=== PATIENT | female | born 1955 | race Caucasian/White ===

== ENCOUNTER → 2017-02-04 | Outpatient (CLI) | payer MEDICAID | LOC: RAD 09:27 | PROVIDERS: ATTEND Family Medicine | DX: M79.605 Pain in left leg (principal) | CPT/HCPCS: 78306; A9503; Q9969 ==

== ENCOUNTER 2017-11-28 07:31 | Day surgery (SDC) | payer MEDICARE, MEDICAID ==
[2017-11-28 09:31] LABS: HEMATOCRIT 31.8 % (36.0-47.0); HEMOGLOBIN 10.7 g/dL (12.0-15.5); MEAN CORPUSCULAR HEMOGLOBIN 26.7 pg (27.0-33.4); MEAN CORPUSCULAR HGB CONC 33.8 g/dL (32.0-36.0); MEAN CORPUSCULAR VOLUME 79 fl (80-97); PLATELET COUNT 553 10^3/uL (150-450); RED BLOOD COUNT 4.02 10^6/uL (3.72-5.28); WHITE BLOOD COUNT 4.1 10^3/uL (4.0-10.5)
[2017-11-28 09:39] LABS: PROTHROMBIN TIME 12.8 SEC (11.4-15.4)
[2017-11-28 09:40] LABS: PARTIAL THROMBOPLASTIN TIME 36.7 SEC (23.5-35.8)
[2017-11-28 09:47] LABS: BLOOD UREA NITROGEN 9 mg/dL (7-20)
[2017-11-28 12:58] VITALS: BP 119/67
[2017-11-28 13:00] LABS: FLUID APPEARANCE CLOUDY; FLUID COLOR AMBER; FLUID SOURCE ASCITES; FLUID TYPE PERITONEAL; FLUID VISCOSITY LIQUID
--- NOTE | 2017-11-28 14:15 | RADIOLOGY REPORT (SQ) ---
EXAM DESCRIPTION: U/S ABD PARACENTESIS COMPLETED DATE/TIME: 11/28/2017 11:55 am REASON FOR STUDY: ASCITES COMPARISON CT abdomen pelvis 12/19/2007 LIMITATIONS: None. PROCEDURE: After obtaining informed consent, the patient was brought to the ultrasound suite. The p rocedure was performed with the patient on a gurney. Ultrasound was used to identify a prominent poc ket of ascites in the left lower quadrant. An appropriate access site was selected. The patient was prepped and draped in usual sterile fashion. The access site was anesthetized with 7 mL of 1% lido sunil. A [id number] needle was advanced into the fluid. After aspiration of fluid the needle, the catheter was advanced off the needle into the fluid. A total of 150 mL of clear patt colored fl uid was removed. The patient tolerated the procedure well left the department in satisfactory conditi on. Fluid was sent for testing as per Dr. Nam IMPRESSION: Successful ultrasound-guided diagnostic and therapeutic paracentesis COMMENT: Patient medication list reviewed: Yes- Quality ID# 130:Eligible professional attests to doc umenting in the medical record they obtained, updated, or reviewed the patient's current medications. Quality ID #76: The patient was prepped and draped using maximum sterile barrier technique including cap, mask, sterile gown, sterile gloves, a large sterile sheet, hand hygiene, and 2% Chlorhexidine fo r cutaneous antisepsis. When ultrasound is used, sterile ultrasound techniques are followed requiring sterile gel and sterile probes. Quality ID #145: Final reports for procedures using fluoroscopy that document radiation exposure dorian maribel, or exposure time and number of fluorographic images (if radiation exposure indices are not avail able) TECHNICAL DOCUMENTATION: JOB ID: [id number] [employer]- All Rights Reserved
[2017-11-30 07:07] LABS: ALBUMIN BODY FLUID 2.7 g/dL (.); TOTAL PROTEIN BODY FLUID 5.8 g/dL (.)
== END 2017-11-28 12:45 | disposition home or self-care (01) ==
LOC: RAD 07:31
PROVIDERS: ATTEND Internal Medicine
PROC: 0W9G3ZZ Drainage of Peritoneal Cavity, Percutaneous Approach (ICD-10-PCS; principal; 2017-11-28)
DX: R59.1 Generalized enlarged lymph nodes (principal); C80.1 Malignant (primary) neoplasm, unspecified; R18.0 Malignant ascites; R01.1 Cardiac murmur, unspecified; M19.90 Unspecified osteoarthritis, unspecified site; J44.9 Chronic obstructive pulmonary disease, unspecified; I11.9 Hypertensive heart disease without heart failure; I73.00 Raynaud's syndrome without gangrene; Z88.5 Allergy status to narcotic agent; Z88.6 Allergy status to analgesic agent; Z88.1 Allergy status to other antibiotic agents; Z88.7 Allergy status to serum and vaccine; Z79.82 Long term (current) use of aspirin; Z79.51 Long term (current) use of inhaled steroids; F17.210 Nicotine dependence, cigarettes, uncomplicated
CPT/HCPCS: 36415; 49083; 82042; 82565; 84157; 84520; 85027; 85610; 85730; 87070; 87075; 87205; 88184; 88185; 88305; 88341; 88342; 89050

== ENCOUNTER → 2017-12-04 | Outpatient (CLI) | payer MEDICARE, MEDICAID ==
--- NOTE | 2017-12-05 09:23 | RADIOLOGY REPORT (SQ) ---
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 RADIONUCLIDE AND DOSE: 10.9 mCi F18 FDG The route of agent administration: Intravenous FASTING BLOOD SUGAR: 83 mg/dl CONTRAST TYPE AND DOSE: No CT contrast given. TECHNIQUE: Blood glucose level was verified. Above dose of FDG was injected intravenously. 2-D seg mented attenuation correction images were obtained from the base of the skull to the midthighs. Nonc ontrast CT images were obtained for attenuation correction and fusion with emission images. CT image s were performed without oral or intravenous contrast and are not sensitive for parenchymal lesions. A series of overlapping emission PET images were obtained. Images reviewed and manipulated at [facility] work station by the radiologist. Images stored on PACS. LIMITATIONS: None. FINDINGS: HEAD AND NECK: No areas of abnormal metabolic activity in the soft tissues of the head and neck. CHEST: Hypermetabolic axillary nodes, largest on the right 1.5 x 2.6 cm, 8.8 SUV. Station 2R: 1.5 cm. 7.1 mean SUV. Station 2 L: 1.0 cm. 6.9 SUV. Station 6: 3 closely opposed subcentimeter nodes 5.3 SUV. Internal mammary. Bilateral subcentimeter nodes 4.0 SUV. Multiple anterior cardiophrenic nodes measuring up to about 2 cm and 6.4 SUV. Station 8: 1.5 cm, 4.6 SUV. ABDOMEN AND PELVIS: Extensive celiac axis and retroperitoneal adenopathy 8.0 SUV range with the large st conglomerate about 5 cm in diameter just inferior to the right renal vein. Hypermetabolic partially calcified central mesenteric nodes 6.3 SUV. Hypermetabolic heterogeneous partially calcified pelvic mass measuring about 5.8 SUV. Margins are ir regular but roughly 10.0 x 8.6 cm in transverse by AP diameter. 1.5 cm hypermetabolic right iliac chain nodes measuring about 5.8 SUV. PROXIMAL LOWER EXTREMITIES: No areas of abnormal metabolic activity in the soft tissues of the lower extremities. BONES: No abnormal metabolic activity in the visualized skeleton. ADDITIONAL CT FINDINGS: Small amount of ascites. OTHER: No other significant findings. IMPRESSION: 1. Extensive adenopathy above and below the diaphragm. 2. Hypermetabolic partially calcified pelvic mass possible gynecologic primary. TECHNICAL DOCUMENTATION: JOB ID: [id number] [employer]- All Rights Reserved
== END ==
LOC: RAD 15:02
PROVIDERS: ATTEND Internal Medicine
DX: C81.73 Other Hodgkin lymphoma, intra-abdominal lymph nodes (principal)
CPT/HCPCS: 78815; A9552

== ENCOUNTER 2017-12-12 09:14 | Day surgery (SDC) | payer MEDICARE, MEDICAID ==
[~2017-12-12 09:14] MED LIST: ACETAMINOPHEN 325 MG TABLET PO PRN; CEFAZOLIN 1 GM/D5W RTU 1 GM/50 ML RTUPB IV PRN; CLINDAMYCIN 600 MG/D5W RTU 600 MG/50 ML RTUPB IV PRN; LIDOCAINE 1%/EPINEPHRINE INJ 20 ML VIAL ONE
[2017-12-12 10:10] LABS: HEMATOCRIT 32.7 % (36.0-47.0); HEMOGLOBIN 10.9 g/dL (12.0-15.5); MEAN CORPUSCULAR HEMOGLOBIN 25.9 pg (27.0-33.4); MEAN CORPUSCULAR HGB CONC 33.3 g/dL (32.0-36.0); MEAN CORPUSCULAR VOLUME 78 fl (80-97); PLATELET COUNT 554 10^3/uL (150-450); RED BLOOD COUNT 4.21 10^6/uL (3.72-5.28); RED CELL DISTRIBUTION WIDTH 14.1 % (11.5-14.0); WHITE BLOOD COUNT 4.3 10^3/uL (4.0-10.5)
[2017-12-12] MEDS ORDERED: MIDAZOLAM 2 MG/2 ML INJ ONE (10:50)
[2017-12-12] MEDS ORDERED: KETAMINE HCL INJ 500 MG/10 ML VIAL ONE (10:50)
[2017-12-12] MEDS ORDERED: ACETAMINOPHEN 100 ML IV ONE (10:50)
[2017-12-12] MEDS ORDERED: PROPOFOL INJ 200 MG/20 ML VIAL IV ONE ×2 (10:50→11:39)
[2017-12-12] MEDS ORDERED: FENTANYL CITRATE INJ/PF 100 MCG/2 ML AMPUL ONE (10:50)
[2017-12-12] MEDS ORDERED: FENTANYL CITRATE INJ/PF 100 MCG/2 ML AMPUL IV PRN ×3 (11:31)
[2017-12-12] MEDS ORDERED: ONDANSETRON HCL INJ/PF 4 MG/2 ML SDV IV PRN (11:31)
[2017-12-12] MEDS ORDERED: MEPERIDINE HCL/PF INJ 25 MG/1 ML DISP.SYRIN IV PRN (11:31)
[2017-12-12] MEDS ORDERED: DIPHENHYDRAMINE HCL 50 MG/ML VIAL IV PRN (11:31)
[2017-12-12] MEDS ORDERED: PROMETHAZINE HCL INJ 25 MG/1 ML VIAL IV PRN ×2 (11:31)
[2017-12-12] MEDS ORDERED: LIDOCAINE 2% INJ-PF (20 MG/ML) 2 ML AMPUL ONE (11:54)
[2017-12-12] MEDS ORDERED: DEXAMETHASONE SOD PHOSPHATE INJ 4 MG/1 ML VIAL ONE (11:54)
[2017-12-12] MEDS ORDERED: ONDANSETRON HCL INJ/PF 4 MG/2 ML SDV ONE (11:54)
--- NOTE | 2017-12-12 12:24 | Operative Report ---
Operative Report DATE OF SURGERY: 12/12/17 PREOPERATIVE DIAGNOSIS: Stage IV ovarian carcinoma POSTOPERATIVE DIAGNOSIS: Same OPERATION: 1. Focused ultrasound of the right neck. 2. Insertion of right subclavian single lumen Fcpqtw-[id number]-Uern catheter. 3. Irritation of intraoperative fluoroscopy SURGEON: ITZ RO ANESTHESIA: LMAC TISSUE REMOVED OR ALTERED: None COMPLICATIONS: None ESTIMATED BLOOD LOSS: Scant INTRAOPERATIVE FINDINGS: Below PROCEDURE: The patient was seen in the preop holding area the right neck was marked. She was then taken to the main operating room where LMAC anesthesia was induced. The right neck chest wall were exposed, prepped and draped in sterile fashion and instrumentation set up for open port placement Surgical plan and surgical timeout conducted. Right neck scanned with a variable frequency linear transducer. Right internal jugular vein was felt suitable for cannulation. Skin was anesthetized 1% lidocaine plain, micro needle and wire threaded into the right internal jugular vein, confirmed to be in good position with intraoperative fluoroscopy Suitable site for placement of port was chosen in the right subclavian position. Skin was anesthetized with plain lidocaine incision was made vertical and parallel to the clavicle. Subcutaneous pocket was developed with blunt and electrocautery dissection. Catheter was trimmed to the appropriate length tunneled between the 2 incisions, attached to the port and secured with the plastic ring. The port was tucked into the subcutaneous pocket. Micro needle over to a conventional 0.035 wire using the introducer sheath. The 9 Frisian sheath and dilator was then threaded over the conventional guidewire, guidewire dilator removed, and catheter threaded into the strip away sheath leaving the catheter in good position. By fluoroscopic analysis, the tip of the catheter is in superior vena cava, no kinking of the catheter. Elton needle was used to aspirate blood and flush the port with dilute heparinized saline. Wounds closed with 3-0 Vicryl benzoin Steri-Strips. Patient taught procedure well. SHe was taken to the recovery room in stable condition.
[2017-12-12 14:02] VITALS: BP 116/65
--- NOTE | 2017-12-12 16:23 | RADIOLOGY REPORT (SQ) ---
EXAM DESCRIPTION: FLUORO/CV PLACEMENT COMPLETED DATE/TIME: 12/12/2017 3:51 pm REASON FOR STUDY: PORTACATH PLCMT RT SIDE ASST WITH FLUORO IN OR C56.2 MALIGNANT NEOPLASM OF LEFT O VARY R59.1 GENERALIZED ENLARGED LYMPH NODES COMPARISON: PET-CT 12/04/2017 FLUOROSCOPY TIME: 0.1 minutes 3 digital C-arm images saved to PACS. TECHNIQUE: Intra-operative images acquired during surgical procedure to evaluate progress. NUMBER OF IMAGES: 3 digital C-arm images saved to pac's LIMITATIONS: None. FINDINGS: Intra procedural imaging and fluoro during right-sided permanent central line placement wi th the tip in the superior vena cava. Please see the operative report for further details IMPRESSION: Intra procedural imaging and fluoro COMMENT: Quality ID 145: Final reports for procedures using fluoroscopy that document radiation exp osure indices, or exposure time and number of fluorographic images (if radiation exposure indices are not available) Please consult full operative report of the attending physician for description of the procedure. TECHNICAL DOCUMENTATION: JOB ID: [id number] [employer]- All Rights Reserved
--- NOTE | 2017-12-14 11:58 | DISCHARGE SUMMARY E ---
Discharge Summary NAME: SHAWANDA ZHANG : 1955 AGE: 62Y ADMITTED: 12/12/2017 DISCHARGED: 12/12/2017 DISCHARGE SUMMARY: The patient is a 62-year-old white female with a recent diagnosis of stage 4 ovarian carcinoma. She was brought thru [facility] for Infusaport catheter placement. Procedure was performed and dictated separately. There were no post-procedure complications. She tolerated the procedure well and was discharged home to the care of her family. FINAL DIAGNOSIS: Ovarian carcinoma stage 4 status post Infusaport catheter placement by Dr. Cabral. DISPOSITION: The patient will be discharged home in the care of her family. Follow up with Dr. Cabral at [facility] in 1-2 weeks, take Toradol p.r.n. pain. DICTATING PHYSICIAN: ITZ CABRAL M.D. [id number] PHY#: [id number] ID: [id number] JOB#: [id number] ACCT: [id number] cc:ITZ CABRAL M.D. > MTDD
== END 2017-12-12 14:00 | disposition home or self-care (01) ==
LOC: OROUT 09:14
PROVIDERS: ATTEND Surgery
PROC: 05H533Z Insertion of Infusion Device into Right Subclavian Vein, Percutaneous Approach (ICD-10-PCS; principal; 2017-12-12 11:30)
DX: C56.2 Malignant neoplasm of left ovary (principal); R59.1 Generalized enlarged lymph nodes; J44.9 Chronic obstructive pulmonary disease, unspecified; I10 Essential (primary) hypertension; F41.9 Anxiety disorder, unspecified; F17.210 Nicotine dependence, cigarettes, uncomplicated; Z88.5 Allergy status to narcotic agent; Z88.1 Allergy status to other antibiotic agents; Z79.899 Other long term (current) drug therapy; Z79.51 Long term (current) use of inhaled steroids; Z79.82 Long term (current) use of aspirin; R01.1 Cardiac murmur, unspecified
CPT/HCPCS: 36415; 85027; 77001; 36561; C1752; C1788; J2250; J1100; J3010; J3490 ×2; J2405; J2704; J1642; J0131

== ENCOUNTER 2018-01-10 09:48 | Outpatient (CLI) | payer MEDICARE, MEDICAID ==
[~2018-01-10 09:48] MED LIST changes: -ACETAMINOPHEN 325 MG TABLET PO PRN; -CEFAZOLIN 1 GM/D5W RTU 1 GM/50 ML RTUPB IV PRN; -CLINDAMYCIN 600 MG/D5W RTU 600 MG/50 ML RTUPB IV PRN; +FERRIC CARBOXYMALTOSE 750 MG in NORMAL SALINE 250 ML IV PRN; -LIDOCAINE 1%/EPINEPHRINE INJ 20 ML VIAL ONE; +NORMAL SALINE 250 ML IV PRN
[2018-01-10] MEDS ORDERED: DEXAMETHASONE SOD PHOSPHATE 10 MG in NORMAL SALINE 50 ML IV PRN (10:14)
[2018-01-10 10:34] VITALS: BP 117/69
== END 2018-01-10 11:37 | disposition home or self-care (01) ==
LOC: II 09:48 → 5TH 09:53 → II 11:37
PROVIDERS: ATTEND Internal Medicine
PROC: 3E043GC Introduction of Other Therapeutic Substance into Central Vein, Percutaneous Approach (ICD-10-PCS; principal; 2018-01-10)
PROC: 3E0433Z Introduction of Anti-inflammatory into Central Vein, Percutaneous Approach (ICD-10-PCS; 2018-01-10)
DX: D50.8 Other iron deficiency anemias (principal); K90.9 Intestinal malabsorption, unspecified; L27.0 Generalized skin eruption due to drugs and medicaments taken internally
CPT/HCPCS: 96365; 96374; J7050; J1100; J1439; 96375

== ENCOUNTER 2018-01-14 17:03 | Emergency (ER) | payer MEDICARE, MEDICAID ==
--- NOTE | 2018-01-14 17:22 | ER Document Report ---
ED General - General Chief Complaint: Irregular Pulse Stated Complaint: SHOULDER PAIN Time Seen by Provider: 01/14/18 17:16 Notes: 62-year-old lady with breast and ovarian cancer on chemotherapy as well as long- term COPD presents with palpitations which started about an hour and a half ago , heart rate was 180 for paramedics. She has no shortness of breath chest pain nausea vomiting but did feel slightly dizzy. This is happened once before. She was found to be in SVT was given a single dose of adenosine which converted her in a sinus tachycardia. TRAVEL OUTSIDE OF THE [place] IN LAST 30 DAYS: No - Related Data Allergies/Adverse Reactions: cephalexin monohydrate [From Keflex] Allergy (Mild, Verified 12/09/17 15:03) rash Tetanus Vaccines and Toxoid [Tetanus] Allergy (Mild, Verified 12/09/17 15:03) ARM SWELLING duloxetine HCl [From Cymbalta] Allergy (Verified 12/09/17 15:03) Vomiting oxycodone HCl [From Percocet] Allergy (Verified 12/09/17 15:03) Vomiting tramadol HCl [From Ultracet] Allergy (Verified 12/09/17 15:03) Vomiting azithromycin [From Zithromax] Adverse Reaction (Intermediate, Verified 12/09/17 15:03) N/V Past Medical History - Social History Smoking Status: Current Every Day Smoker Chew tobacco use (# tins/day): No Smoking Education Provided: Yes - The patient ED visit today was directly related to their abuse of tobacco. Drug Abuse: None Family History: Reviewed & Not Pertinent Patient has suicidal ideation: No Patient has homicidal ideation: No - Past Medical History Cardiac Medical History: Reports: Hx Hypertension Denies: Hx Coronary Artery Disease, Hx Heart Attack Pulmonary Medical History: Reports: Hx Bronchitis, Hx COPD Denies: Hx Asthma, Hx Pneumonia Neurological Medical History: Denies: Hx Cerebrovascular Accident, Hx Seizures Renal/ Medical History: Denies: Hx Peritoneal Dialysis Musculoskeltal Medical History: Reports Hx Arthritis - GENERALIZED Past Surgical History: Reports: Hx Cholecystectomy - Immunizations Hx Diphtheria, Pertussis, Tetanus Vaccination: No Review of Systems - Review of Systems Notes: REVIEW OF SYSTEMS GEN: Denies fever, chills, weight loss ENT: Denies sore throat, nasal discharge, ear pain EYES: Denies blurry vision, eye pain, discharge CV: D no chest pain or shortness of breath positive palpitations RESP: Denies cough, shortness of breath, wheezing GI: Denies abdominal pain, nausea, vomiting, diarrhea MSK: Denies joint pain/swelling, edema, SKIN: Denies rash, skin lesions LYMPH: Denies swollen glands/lymph nodes NEURO: Denies headache, focal weakness or numbness, dizziness PSYCH: Denies depression, suicidal or homicidal ideation PHYSICAL EXAMINATION General: No acute distress, well-nourished Head: Atraumatic, normocephalic ENT: Mouth normal, oropharynx moist, no exudates or tonsillar enlargement Eyes: Conjunctiva normal, pupils equal, lids normal Neck: No JVD, supple, no guarding CVS: Tachycardic and regular rhythm, no murmurs Resp: No resp distress, equal and normal breath sounds bilaterally GI: Nondistended, soft, no tenderness to palpation, no rebound or guarding Ext: No deformities, no edema, normal range of motion in upper and lower ext Back: No CVA or midline TTP Skin: No rash, warm Lymphatic: No lymphadeopathy noted Neuro: Awake, alert. Face symmetric. GCS 15. Physical Exam - Vital signs Vitals: Resp Pulse Ox 33 H 99 01/14/18 17:06 01/14/18 17:06 Course - Re-evaluation Re-evalutation: 01/14/18 18:44 Patient presents with resolved supraventricular tachycardia. She has cancer. She is on chemotherapy. Multiple electrolyte abnormality, hydration, pulmonary issues could be causing this. She is clinically stable but her heart rate is elevated at 120 so we will give her IV fluids. Heart rate decreased to 100 with IV fluid. Patient felt totally normal. X-ray shows some right pleural effusion with airspace disease. This could be pneumonia but given her cancer I will rule out PE with a CT scan. I did an ultrasound and she has a negligibly tiny pericardial effusion and good cardiac squeeze. 01/14/18 19:38 Patient remained stable. PE was ruled out with CT scan. Heart rate decreased to the 90s and patient feels well and wants to go home. Attempted to call Dr. Quinn and left a message. Spoke with Dr. higgins who recommended starting Cardizem 30 mg every 8 hours and discharging her home to follow-up in his clinic. She is amenable to this. I have discussed with the patient there likely diagnosis, aftercare plan, follow-up plans and my usual and customary return precautions. They verbalized understanding of this. - Vital Signs Vital signs: Temp Pulse Resp BP Pulse Ox 29 H 136/82 H 97 01/14/18 18:01 01/14/18 18:01 01/14/18 18:01 - Laboratory Result Diagrams: 01/14/18 17:09 01/14/18 17:45 Laboratory results interpreted by me: 01/14/18 01/14/18 17:09 17:45 Hgb 10.7 L Hct 32.6 L MCH 26.3 L RDW 15.4 H Plt Count 702 H Seg Neutrophils % 86.9 H Lymphocytes % 6.9 L Sodium 131.3 L Creatinine 0.46 L Glucose 111 H - Diagnostic Test Radiology reviewed: Image reviewed, Reports reviewed - EKG Interpretation by Me EKG shows normal: Sinus rhythm Rate: Normal, Tachycardia Rhythm: NSR When compared to previous EKG there are: No significant change - No preexcitation or other arrhythmia, sinus tachycardia Procedures - Ultrasound/Bedside Ultrasound/Bedside Time completed: 18:45 Ultrasound: Other - Normal cardiac function. Tiny pericardial effusion. Critical Care Note - Critical Care Note Total time excluding time spent on procedures (mins): 32 Comments: The above patient is critically ill. Not including procedures, but including direct re-evaluations, speaking with patient and/or consultants, interpreting results, and documenting, I spent the total amount of minute listed listed above on critical care time Discharge - Discharge Clinical Impression: Supraventricular tachycardia Condition: Good Disposition: HOME, SELF-CARE Instructions: Paroxysmal Supraventricular Tachycardia ([facility]) Additional Instructions: I would like you to follow-up with her cancer doctor but also a funeral pre need consultant. I have included information below. If you develop chest pain or palpitations please return to the emergency room immediately. Please avoid caffeine and keep well-hydrated at home. Prescriptions: Diltiazem HCl [Cardizem 30 mg Tablet] 1 tab PO Q6 #60 tab Referrals: KELSEY TAVERA MD [Primary Care Provider] - Follow up as needed VANE WALTERS MD [ACTIVE STAFF] - Follow up as needed
[2018-01-14 17:38] LABS: ABSOLUTE LYMPHOCYTES (AUTO) 0.6 10^3/uL (0.5-4.7); ABSOLUTE MONOCYTES (AUTO) 0.5 10^3/uL (0.1-1.4); ABSOLUTE NEUT (AUTO) 7.4 10^3/uL (1.7-8.2); BASOPHILS % (AUTO) 0.4 % (0-2); EOSINOPHILS % (AUTO) 0.2 % (0-6); HEMATOCRIT 32.6 % (36.0-47.0); HEMOGLOBIN 10.7 g/dL (12.0-15.5); LYMPHOCYTES % (AUTO) 6.9 % (13-45); MEAN CORPUSCULAR HEMOGLOBIN 26.3 pg (27.0-33.4); MEAN CORPUSCULAR HGB CONC 32.9 g/dL (32.0-36.0); MEAN CORPUSCULAR VOLUME 80 fl (80-97); MONOCYTES % (AUTO) 5.6 % (3-13); PLATELET COUNT 702 10^3/uL (150-450); RED BLOOD COUNT 4.08 10^6/uL (3.72-5.28); RED CELL DISTRIBUTION WIDTH 15.4 % (11.5-14.0); SEGMENTED NEUTROPHILS % (AUTO) 86.9 % (42-78); TOTAL CELLS COUNTED % (AUTO) 100 %; WHITE BLOOD COUNT 8.5 10^3/uL (4.0-10.5)
--- NOTE | 2018-01-14 17:54 | RADIOLOGY REPORT (SQ) ---
EXAM DESCRIPTION: CHEST SINGLE VIEW COMPLETED DATE/TIME: 01/14/2018 5:44 pm REASON FOR STUDY: SOB COMPARISON: Correlation made to PET-CT from 12/04/2017 EXAM PARAMETERS: NUMBER OF VIEWS: One view. TECHNIQUE: Single frontal radiographic view of the chest acquired. RADIATION DOSE: NA LIMITATIONS: None. FINDINGS: LUNGS AND PLEURA: There is a small right pleural effusion and associated patchy airspace d isease. Lungs otherwise clear. MEDIASTINUM AND HILAR STRUCTURES: No masses. Contour normal. HEART AND VASCULAR STRUCTURES: Heart normal in size. Normal vasculature. BONES: No acute findings. HARDWARE: Right-sided port terminates within the SVC. OTHER: No other significant finding. IMPRESSION: THERE IS A SMALL RIGHT PLEURAL EFFUSION WITH ASSOCIATED AIRSPACE DISEASE WHICH COULD REP RESENT ATELECTASIS OR PNEUMONIA. TECHNICAL DOCUMENTATION: JOB ID: [id number] [employer]- All Rights Reserved Reading location - IP/workstation name: [email or web address]
[2018-01-14 18:30] LABS: ANION GAP 7 (5-19); BLOOD UREA NITROGEN 11 mg/dL (7-20); CALCIUM 8.7 mg/dL (8.4-10.2); CARBON DIOXIDE 25 mmol/L (22-30); CHLORIDE 99 mmol/L (98-107); GLUCOSE 111 mg/dL (75-110); POTASSIUM 4.9 mmol/L (3.6-5.0); SODIUM 131.3 mmol/L (137-145)
--- NOTE | 2018-01-14 19:27 | RADIOLOGY REPORT (SQ) ---
EXAM DESCRIPTION: CTA CHEST COMPLETED DATE/TIME: 01/14/2018 7:12 pm REASON FOR STUDY: ro PE COMPARISON: Chest radiograph 01/14/2018 TECHNIQUE: CT scan of the chest performed using helical scanning technique with dynamic intravenous contrast injection. Images reviewed with lung, soft tissue and bone windows. Reconstructed coronal and sagittal MPR images reviewed. Additional 3 dimensional post-processing performed to develop Maximal Intensity Projection images (RI P). All images stored on PACS. All CT scanners at this facility use dose modulation, iterative reconstruction, and/or weight based d osing when appropriate to reduce radiation dose to as low as reasonably achievable (ALARA). [facility]: Dose Right [facility]: CareDose [facility]: Dose Right [facility]: Teradose 4D [facility]: [place] CONTRAST TYPE AND DOSE: contrast/concentration: Isovue 370.00 mg/ml; Total Contrast Delivered: 64.0 ml; Total Saline Delivered: 104.0 ml Contrast bolus optimized for the pulmonary arteries. Not diagnostic for the aorta. RENAL FUNCTION: BUN 11; creatinine 0.46 RADIATION DOSE: CT Rad equipment meets quality standard of care and radiation dose reduction techniq ues were employed. CTDIvol: 13.2 - 14.3 mGy. DLP: 501 mGy-cm. . LIMITATIONS: None. FINDINGS: LUNGS AND PLEURA: Small right-sided pleural effusion. No focal opacities. No pneumothora x. Background of mild emphysematous changes. AORTA AND GREAT VESSELS: Ectatic appearing ascending aorta. Contrast bolus not optimized for the aor ta. HEART: No pericardial effusion. Coronary artery calcifications are present. PULMONARY ARTERIES: No emboli visualized in the main pulmonary arteries or the segmental branches. HILAR AND MEDIASTINAL STRUCTURES: No identified masses or abnormal nodes. HARDWARE: Port-A-Cath is present. UPPER ABDOMEN: No significant findings. Limited exam. THYROID AND OTHER SOFT TISSUES: No masses. No adenopathy. BONES: No acute or significant finding. 3D MIPS: Confirm above findings. OTHER: No other significant finding. IMPRESSION: NORMAL CTA OF THE CHEST. NO PULMONARY EMBOLI. Small right-sided pleural effusion. COMMENT: Quality ID # [id number]: Final reports with documentation of one or more dose reduction techniques (e.g., Automated exposure control, adjustment of the mA and/or kV according to patient size, use of iterative reconstruction technique) TECHNICAL DOCUMENTATION: JOB ID: [id number]- All Rights Reserved Reading location - IP/workstation name: [email or web address]
[2018-01-14 20:10] VITALS: BP 151/82
--- NOTE | 2018-01-15 10:44 | EKG REPORT ---
SEVERITY:- BORDERLINE ECG - SINUS TACHYCARDIA BORDERLINE R WAVE PROGRESSION, ANTERIOR LEADS : Confirmed by: Cathi Stevens 15-Jan-2018 10:43:54
== END 2018-01-14 20:10 | disposition home or self-care (01) ==
LOC: ER 17:03
DX: I47.1 Supraventricular tachycardia (principal); J90 Pleural effusion, not elsewhere classified; I31.3 Pericardial effusion (noninflammatory); R42 Dizziness and giddiness; I10 Essential (primary) hypertension; F17.200 Nicotine dependence, unspecified, uncomplicated; C50.919 Malignant neoplasm of unspecified site of unspecified female breast; C56.9 Malignant neoplasm of unspecified ovary; Z79.899 Other long term (current) drug therapy; Z88.1 Allergy status to other antibiotic agents; Z88.7 Allergy status to serum and vaccine; Z88.5 Allergy status to narcotic agent; Z88.6 Allergy status to analgesic agent
CPT/HCPCS: 36415; 71045; 71275; 80048; 84443; 84484; 85025; 93005; 93010; 99291

== ENCOUNTER 2018-01-18 09:02 | Outpatient (CLI) | payer MEDICARE, MEDICAID ==
[2018-01-18 09:51] VITALS: BP 134/61
== END 2018-01-18 10:20 | disposition home or self-care (01) ==
LOC: II 09:02 → 5TH 09:06 → II 10:20
PROVIDERS: ATTEND Internal Medicine
PROC: 3E033GC Introduction of Other Therapeutic Substance into Peripheral Vein, Percutaneous Approach (ICD-10-PCS; principal; 2018-01-18)
DX: D50.8 Other iron deficiency anemias (principal); K90.9 Intestinal malabsorption, unspecified
CPT/HCPCS: 96365; J7050; J1439; 96374

== ENCOUNTER → 2018-01-31 | Outpatient (CLI) | payer MEDICARE, MEDICAID ==
[2018-01-31 08:35] LABS: HEMATOCRIT 30.5 % (36.0-47.0); HEMOGLOBIN 10.1 g/dL (12.0-15.5); MEAN CORPUSCULAR HEMOGLOBIN 26.6 pg (27.0-33.4); MEAN CORPUSCULAR VOLUME 81 fl (80-97); PLATELET COUNT 379 10^3/uL (150-450); RED BLOOD COUNT 3.79 10^6/uL (3.72-5.28); RED CELL DISTRIBUTION WIDTH 16.5 % (11.5-14.0); WHITE BLOOD COUNT 2.3 10^3/uL (4.0-10.5)
[2018-01-31 08:46] LABS: BLOOD UREA NITROGEN 6 mg/dL (7-20)
[2018-01-31 08:50] LABS: INTERNATIONAL RATION (INR) 0.82; PARTIAL THROMBOPLASTIN TIME 34.5 SEC (23.5-35.8); PROTHROMBIN TIME 11.9 SEC (11.4-15.4)
--- NOTE | 2018-01-31 10:03 | RADIOLOGY REPORT (SQ) ---
EXAM DESCRIPTION: U/S ABDOMEN LIMITED W/O DOP COMPLETED DATE/TIME: 01/31/2018 9:39 am REASON FOR STUDY: ASCITES R18.8 OTHER ASCITES Z79.01 [facility] (CURRENT) USE OF ANTICOAGULANTS COMPARISON: None. TECHNIQUE: Limited Static and real time max scale imaging performed of the 4 abdominal quadrants an d the midline. LIMITATIONS: None. FINDINGS: ASCITES: None identified. OTHER: No other significant finding. IMPRESSION: NO EVIDENCE FOR ASCITES. TECHNICAL DOCUMENTATION: JOB ID: [id number] [employer]- All Rights Reserved Reading location - IP/workstation name: [email or web address] BEDS AT THE [facility]
[2018-01-31 11:01] VITALS: BP 144/90
== END ==
LOC: EDSTATUS 07:01 → RAD 07:40
PROVIDERS: ATTEND Internal Medicine
DX: C56.2 Malignant neoplasm of left ovary (principal); R18.8 Other ascites; Z79.01 Long term (current) use of anticoagulants
CPT/HCPCS: 36415; 76705; 82565; 84520; 85027; 85610; 85730

== ENCOUNTER → 2018-02-23 | Outpatient (CLI) | payer MEDICARE, MEDICAID ==
--- NOTE | 2018-02-23 11:06 | RADIOLOGY REPORT (SQ) ---
EXAM DESCRIPTION: CT CHEST WITH COMPLETED DATE/TIME: 02/23/2018 8:55 am REASON FOR STUDY: OVARIAN CA (C56.2) C56.2 MALIGNANT NEOPLASM OF LEFT OVARY COMPARISON: 01/14/2018 TECHNIQUE: CT scan of the chest performed using helical scanning technique with dynamic intravenous contrast injection. Images reviewed with lung, soft tissue and bone windows. Reconstructed coronal and sagittal MPR images reviewed. All images stored on PACS. All CT scanners at this facility use dose modulation, iterative reconstruction, and/or weight based d osing when appropriate to reduce radiation dose to as low as reasonably achievable (ALARA). [facility]: Dose Right [facility]: CareDose [facility]: Dose Right [facility]: Teradose 4D [facility]: [email or web address] CONTRAST TYPE AND DOSE: See separate report of the same date. RENAL FUNCTION: See separate report of the same date. RADIATION DOSE: . LIMITATIONS: None. FINDINGS: LUNGS AND PLEURA: Right pleural effusion has resolved. Occasional faint ground-glass nodu les in both lungs are stable. HILAR AND MEDIASTINAL STRUCTURES: Subcentimeter mediastinal nodes are stable. HEART AND VASCULAR STRUCTURES: No aneurysm or dissection. No central pulmonary emboli. No pericardi al effusion. HARDWARE: Right-sided port with tip in the SVC. UPPER ABDOMEN: See separate report of the CT of the abdomen. THYROID AND OTHER SOFT TISSUES: Stable mildly enlarged right axillary node. BONES: No acute findings. OTHER: No other significant finding. IMPRESSION: Resolved right pleural effusion. Faint ground-glass nodules. Small right axillary node . TECHNICAL DOCUMENTATION: JOB ID: [id number] Quality ID # [id number]: Final reports with documentation of one or more dose reduction techniques (e.g., Au tomated exposure control, adjustment of the mA and/or kV according to patient size, use of iterative reconstruction technique) 2010 [employer]- All Rights Reserved Reading location - IP/workstation name: [email or web address]
--- NOTE | 2018-02-23 11:13 | RADIOLOGY REPORT (SQ) ---
EXAM DESCRIPTION: CT ABD/PELVIS WITH IV ORAL COMPLETED DATE/TIME: 02/23/2018 8:55 am REASON FOR STUDY: OVARIAN CA (C56.2) C56.2 MALIGNANT NEOPLASM OF LEFT OVARY COMPARISON: Correlation: PET-CT 12/04/2017. TECHNIQUE: CT scan of the abdomen and pelvis performed using helical scanning technique with dynamic intravenous contrast injection. No oral contrast. Images reviewed with lung, soft tissue, and bone windows. Reconstructed coronal and sagittal MPR images reviewed. Delayed images for evaluation of the urinary system also acquired. All images stored on PACS. All CT scanners at this facility use dose modulation, iterative reconstruction, and/or weight based d osing when appropriate to reduce radiation dose to as low as reasonably achievable (ALARA). [facility]: Dose Right [facility]: CareDose [facility]: Dose Right [facility]: Teradose 4D [facility]: roomlinx CONTRAST TYPE AND DOSE: contrast/concentration: Isovue 370.00 mg/ml; Total Contrast Delivered: 64.0 ml; Total Saline Delivered: 65.0 ml RENAL FUNCTION: GFR > 60. RADIATION DOSE: CT Rad equipment meets quality standard of care and radiation dose reduction techniq ues were employed. CTDIvol: 4.4 - 4.5 mGy. DLP: 586 mGy-cm.. LIMITATIONS: None. FINDINGS: LOWER CHEST: See separate report of the CT of the chest. LIVER: Normal size. No masses. No dilated ducts. SPLEEN: Normal size. No focal lesions. PANCREAS: No masses. No significant calcifications. No adjacent inflammation or peripancreatic fluid collections. Pancreatic duct not dilated. GALLBLADDER: Surgically absent. ADRENAL GLANDS: No significant masses or asymmetry. RIGHT KIDNEY AND URETER: No solid masses. No significant calcifications. No hydronephrosis or hyd roureter. LEFT KIDNEY AND URETER: No solid masses. No significant calcifications. No hydronephrosis or hydr oureter. AORTA AND VESSELS: No aneurysm. RETROPERITONEUM: Stable retroperitoneal adenopathy although specific quantifiable differences are dif ficult to determine due to a previous noncontrast study. Nodes are stable to possibly decreased. Ce rtainly no progression. BOWEL AND PERITONEAL CAVITY: Stable partially calcified central mesenteric nodes. APPENDIX: Not visualized. PELVIS: Stable partially calcified pelvic mass approximately 8 x 10 cm. ABDOMINAL WALL: No masses. No hernias. BONES: No acute findings. OTHER: No other significant finding. IMPRESSION: Overall stable appearance. Peritoneal and retroperitoneal adenopathy. Stable pelvic ma ss. TECHNICAL DOCUMENTATION: JOB ID: [id number] Quality ID # [id number]: Final reports with documentation of one or more dose reduction techniques (e.g., Au tomated exposure control, adjustment of the mA and/or kV according to patient size, use of iterative reconstruction technique) 2010 [employer]- All Rights Reserved Reading location - IP/workstation name: [facility]
== END ==
LOC: RAD 08:01
PROVIDERS: ATTEND Internal Medicine Hematology & Oncology
DX: C56.2 Malignant neoplasm of left ovary (principal)
CPT/HCPCS: 71260; 74177

== ENCOUNTER → 2018-04-30 | Outpatient (CLI) | payer MEDICARE, MEDICAID ==
--- NOTE | 2018-05-01 10:31 | RADIOLOGY REPORT (SQ) ---
EXAM DESCRIPTION: PET CT SKULL/THIGH COMPLETED DATE/TIME: 04/30/2018 8:27 pm REASON FOR STUDY: OVARIAN CANCER C56.2 MALIGNANT NEOPLASM OF LEFT OVARY COMPARISON: 12/04/2017. RADIONUCLIDE AND DOSE: 10.0 mCi F18 FDG The route of agent administration: Intravenous FASTING BLOOD SUGAR: 111 mg/dl CONTRAST TYPE AND DOSE: No CT contrast given. TECHNIQUE: Blood glucose level was verified. Above dose of FDG was injected intravenously. 2-D seg mented attenuation correction images were obtained from the base of the skull to the midthighs. Nonc ontrast CT images were obtained for attenuation correction and fusion with emission images. CT image s were performed without oral or intravenous contrast and are not sensitive for parenchymal lesions. A series of overlapping emission PET images were obtained. Images reviewed and manipulated at [facility] work station by the radiologist. Images stored on PACS. LIMITATIONS: None. FINDINGS: HEAD AND NECK: No areas of abnormal metabolic activity in the soft tissues of the head and neck. CHEST: Previously seen adenopathy has improved significantly. Currently the largest lymph node in th e right axilla measures 0.6 x 1.7 cm with prior measurement 1.5 x 2.6 cm. Mean SUV 2.14 with prior v alue 8.8. Other lymph nodes in the axilla as well as in the mediastinum have decreased in size signi ficantly and all are now less than 1 cm. Activity of these lymph nodes has also decreased significan tly and currently not elevated. There is a new cavitary lesion in the right lower lobe measuring 1.2 cm (axial series 3, image 85). Fairly thick wall but symmetric without abnormal nodularity. Activi ty of the solid component oval wall has mean SUV 1.62. ABDOMEN AND PELVIS: Extensive retroperitoneal adenopathy has improved significantly. Previously seen enlarged lymph nodes now all measure less than 1 cm. Currently no abnormal increased activity. The large heterogenous calcified mass in the pelvis appears unchanged. The noncalcified soft tissue com ponent has mean SUV 7.56 with prior measurement 5.8. PROXIMAL LOWER EXTREMITIES: No areas of abnormal metabolic activity in the soft tissues of the lower extremities. BONES: No abnormal metabolic activity in the visualized skeleton. ADDITIONAL CT FINDINGS: No additional significant findings on the noncontrast CT images. OTHER: Background liver activity mean SUV 2.41. Background blood pool activity mean SUV 1.64. IMPRESSION: 1. SIGNIFICANT IMPROVEMENT IN THE PREVIOUSLY SEEN EXTENSIVE ADENOPATHY. PREVIOUSLY SEEN ENLARGED LYM PH NODES NOW ALL MEASURE LESS THAN A CM AND DEMONSTRATE NO ABNORMAL ACTIVITY ABOVE BASELINE. THE LAR GEST LYMPH NODE IN THE RIGHT AXILLA HAS DECREASED IN SIZE AND CURRENT SUV VALUE 2.14 WITH PRIOR VALUE 8.8. 2. LARGE CALCIFIED MASS IN THE PELVIS WITH INCREASED ACTIVITY OF THE SOFT TISSUE COMPONENT, UNCHANGED FROM THE PRIOR STUDY. 3. NEW 1.2 CM CAVITARY LESION IN THE RIGHT LOWER LOBE. ACTIVITY IN THE SOLID COMPONENT OF THE WALL I S NO HIGHER THAN BASELINE ACTIVITY. THIS MAY BE DUE TO RECENT INFECTION OR INFLAMMATION. METASTATIC LESION IS PROBABLY LESS LIKELY AND, AGAIN, MINIMAL ACTIVITY OF THE SOFT TISSUE COMPONENT OF THE WALL . TECHNICAL DOCUMENTATION: JOB ID: [id number] [employer]- All Rights Reserved Reading location - IP/workstation name: [facility]
== END ==
LOC: RAD 16:24
PROVIDERS: ATTEND Physician Assistant Medical
DX: C56.2 Malignant neoplasm of left ovary (principal)
CPT/HCPCS: 78815; A9552

== ENCOUNTER → 2018-07-13 | Outpatient (CLI) | payer MEDICARE, MEDICAID ==
--- NOTE | 2018-07-13 13:11 | RADIOLOGY REPORT (SQ) ---
EXAM DESCRIPTION: CT CHEST WITH; CT ABD/PELVIS WITH IV ORAL COMPLETED DATE/TIME: 07/13/2018 9:50 am REASON FOR STUDY: MALIGNANT NEOPLASM OF LEFT OVARY C56.2 MALIGNANT NEOPLASM OF LEFT OVARY COMPARISON: PET-CT 04/30/2018, 12/04/2017 CT chest abdomen pelvis 02/23/2018 CONTRAST TYPE AND DOSE: 63 mL IV Omnipaque 350- low osmolar. RENAL FUNCTION: Creatinine 0.5 TECHNIQUE: CT scan of the chest performed using helical scanning technique with dynamic intravenous contrast injection. Images reviewed with lung, soft tissue and bone windows. Reconstructed coronal a nd sagittal MPR images reviewed. All images stored on PACS. CT scan of the abdomen and pelvis performed with intravenous and with oral contrastusing helical scan lyric technique with dynamic intravenous contrast injection. Images reviewed with lung, soft tissue a nd bone windows. Reconstructed coronal and sagittal MPR images reviewed. Delayed images for evaluat ion of the urinary system also acquired and evaluated. All images stored on PACS. All CT scanners at this facility use dose modulation, iterative reconstruction, and/or weight based d osing when appropriate to reduce radiation dose to as low as reasonably achievable (ALARA). [facility]: Dose Right [facility]: CareDose [facility]: Dose Right [facility]: Teradose 4D [facility]: i-marker RADIATION DOSE: 7.5 mGy . LIMITATIONS: None. FINDINGS: CHEST: LUNGS AND PLEURA: 9 mm cavitary lesion in the right lower lobe image 73 is smaller than on prior PET- CT (was 1.3 cm on 04/30/2018). No acute infiltrates. No pleural effusion. No pneumothorax. Airways are patent. HILAR AND MEDIASTINAL STRUCTURES: No identified masses or abnormal nodes. HEART AND VASCULAR STRUCTURES: No aneurysm or dissection. No central pulmonary emboli. No pericardi al effusion. HARDWARE: Right permanent central line tip superior vena cava THYROID AND OTHER SOFT TISSUES: With right axillary 1.7 x 0.8 cm lymph node unchanged from prior PET- CT 04/30/2018. Left axillary 1.1 x 0.7 cm lymph node unchanged from prior PET-CT 04/30/2018. BONES: No significant finding. OTHER: No other significant finding. ABDOMEN AND PELVIS: LIVER: Normal size. No masses. No dilated ducts. SPLEEN: Normal size. No focal lesions. PANCREAS: No masses. No significant calcifications. No adjacent inflammation or peripancreatic fluid collections. Pancreatic duct not dilated. GALLBLADDER: Surgically absent ADRENAL GLANDS: No significant masses or asymmetry. RIGHT KIDNEY AND URETER: No solid masses. No significant calcification. No hydronephrosis or hydroure ter. LEFT KIDNEY AND URETER: No solid masses. No significant calcification. No hydronephrosis or hydrouret er. AORTA AND VESSELS: No aneurysm. No dissection. Renal arteries, SMA, celiac without stenosis. RETROPERITONEUM: Stable retroperitoneal abdominal and pelvic lymph nodes as follows: Left para aortic 1.4 x 0.6 cm Iliac bifurcation 0.8 x 0.7 cm Right external iliac 1.3 x 1 cm BOWEL AND PERITONEAL CAVITY: Patient drank oral contrast. No CT evidence of bowel obstruction. No f ree intraperitoneal air or fluid. Calcified mesenteric mass seen on PET-CT of the root of mesentery has been surgically removed. APPENDIX: Surgically absent ABDOMINAL WALL: No masses. No hernias. PELVIS: No mass or free fluid. Normal bladder. Primary calcified pelvic mass seen on PET-CT 04/30/20 18 has been resected. There is spotty residual calcification at the vaginal cuff on axial image 59. BONES: No significant or acute findings. OTHER: No other significant finding. IMPRESSION: Decrease in size of right lower lobe cavitary nodule Post surgical resection of uterus and calcified mesenteric mass seen on PET-CT 04/30/2018 Stable small lymph nodes bilateral axillary, left periaortic, iliac bifurcation, and right external i liac region TECHNICAL DOCUMENTATION: JOB ID: [id number] Quality ID # 436: Final reports with documentation of one or more dose reduction techniques (e.g., Au tomated exposure control, adjustment of the mA and/or kV according to patient size, use of iterative reconstruction technique) 2010 [employer]- All Rights Reserved Reading location - IP/workstation name: [email or web address]
== END ==
LOC: RAD 08:10
PROVIDERS: ATTEND Internal Medicine
DX: C56.2 Malignant neoplasm of left ovary (principal)
CPT/HCPCS: 71260; 74177

== ENCOUNTER → 2018-08-31 | Outpatient (CLI) | payer MEDICARE, MEDICAID ==
--- NOTE | 2018-08-31 11:03 | RADIOLOGY REPORT (SQ) ---
EXAM DESCRIPTION: CT CHEST WITH; CT ABD/PELVIS WITH IV ORAL COMPLETED DATE/TIME: 08/31/2018 10:26 am REASON FOR STUDY: MALIGNANT NEOPLASM OF LEFT OVARY (C56.2) C56.2 MALIGNANT NEOPLASM OF LEFT OVARY R 59.0 LOCALIZED ENLARGED LYMPH NODES COMPARISON: PET-CT 04/30/2018 CT chest abdomen pelvis 02/13/2018, 07/23/2018 CONTRAST TYPE AND DOSE: contrast/concentration: Isovue 350.00 mg/ml; Total Contrast Delivered: 64.0 ml; Total Saline Delivered: 65.0 ml RENAL FUNCTION: Creatinine 0.48 TECHNIQUE: CT scan of the chest performed using helical scanning technique with dynamic intravenous contrast injection. Images reviewed with lung, soft tissue and bone windows. Reconstructed coronal a nd sagittal MPR images reviewed. All images stored on PACS. CT scan of the abdomen and pelvis performed with intravenous and with oral contrastusing helical scan lyric technique with dynamic intravenous contrast injection. Images reviewed with lung, soft tissue a nd bone windows. Reconstructed coronal and sagittal MPR images reviewed. Delayed images for evaluat ion of the urinary system also acquired and evaluated. All images stored on PACS. All CT scanners at this facility use dose modulation, iterative reconstruction, and/or weight based d osing when appropriate to reduce radiation dose to as low as reasonably achievable (ALARA). [facility]: Dose Right [facility]: CareDose [facility]: Dose Right [facility]: Teradose 4D [facility]: [employer] RADIATION DOSE: CT Rad equipment meets quality standard of care and radiation dose reduction techniq ues were employed. CTDIvol: 4.4 - 4.8 mGy. DLP: 623 mGy-cm. . LIMITATIONS: None. FINDINGS: CHEST: LUNGS AND PLEURA: Trace right pleural fluid. This is new compared to previous studies. Cavitary nodule seen in the right lower lobe now 7.5 mm in size (was 9 mm in diameter on 07/13/2018) HILAR AND MEDIASTINAL STRUCTURES: No identified masses or abnormal nodes. HEART AND VASCULAR STRUCTURES: No aneurysm or dissection. No central pulmonary emboli. No pericardi al effusion. HARDWARE: None. THYROID AND OTHER SOFT TISSUES: Right axillary lymph node is 2.9 x 1.3 cm in size axial image 22 (was 1.7 x 0.8 cm in size 07/13/2018) Left axillary lymph node is 1.6 x 0.8 cm in size (was 1.1 x 0.7 cm 07/13/2018). BONES: No significant finding. OTHER: No other significant finding. ABDOMEN AND PELVIS: LIVER: Normal size. No masses. No dilated ducts. SPLEEN: Normal size. No focal lesions. PANCREAS: No masses. No significant calcifications. No adjacent inflammation or peripancreatic fluid collections. Pancreatic duct not dilated. GALLBLADDER: Surgically absent ADRENAL GLANDS: No significant masses or asymmetry. RIGHT KIDNEY AND URETER: No solid masses. No significant calcification. No hydronephrosis or hydroure ter. LEFT KIDNEY AND URETER: No solid masses. No significant calcification. No hydronephrosis or hydrouret er. AORTA AND VESSELS: No aneurysm. No dissection. Renal arteries, SMA, celiac without stenosis. RETROPERITONEUM: Unchanged left para aortic lymph node 1.4 x 0.8 cm axial image 28. Slight increase in size of the lymph node at the iliac bifurcation now 9 x 9 mm in size (was 8 x 7 mm on 07/13/2018). Increase in size of right external iliac lymph node axial image 56 now 2.8 x 1.4 cm in size (was 1.3 x 1 cm on 07/13/2018). New right external iliac lymph node 1.8 x 1.3 cm on axial image 61. BOWEL AND PERITONEAL CAVITY: Patient drank oral contrast. No CT evidence of bowel obstruction. No f ree intraperitoneal air or fluid. APPENDIX: Not visualized. No right lower quadrant inflammatory change ABDOMINAL WALL: No masses. No hernias. PELVIS: Post hysterectomy with calcifications along the vaginal cuff. No free pelvic fluid. Bladder unremarkable. Increasing adenopathy as above BONES: No significant or acute findings. OTHER: No other significant finding. IMPRESSION: Increasing axillary adenopathy Increasing pelvic adenopathy TECHNICAL DOCUMENTATION: JOB ID: [id number] Quality ID # 436: Final reports with documentation of one or more dose reduction techniques (e.g., Au tomated exposure control, adjustment of the mA and/or kV according to patient size, use of iterative reconstruction technique) 2010 [employer]- All Rights Reserved Reading location - IP/workstation name: [email or web address]
--- NOTE | 2018-08-31 14:48 | WOMENS IMAGING REPORT ---
EXAM DESCRIPTION: 3D DX MAMMO BILAT; U/S BREAST UNILAT LIMITED COMPLETED DATE/TIME: 08/31/2018 11:45 am; 08/31/2018 12:05 pm REASON FOR STUDY: N63.0 RT AXILLA LUMP; RT BREAST N63.0 C56.2 MALIGNANT NEOPLASM OF LEFT OVARY R59. 0 LOCALIZED ENLARGED LYMPH NODES COMPARISON: No previous mammograms available Prior CT chest 08/31/2018 TECHNIQUE: Standard craniocaudal and mediolateral oblique views of each breast recorded using digita l acquisition and breast tomosynthesis. Additional right breast 90 mediolateral view. Right breast and right axilla ultrasound LIMITATIONS: None. FINDINGS: RIGHT BREAST MASSES: In the right breast, upper outer quadrant about 7 to 8 cm from the nipple a low-density well- circumscribed hypoechoic mammographic nodule is present. CALCIFICATIONS: No new or suspicious calcifications. ARCHITECTURAL DISTORTION: None. DEVELOPING DENSITY: None. ASYMMETRY: None noted. OTHER: No other significant findings. LEFT BREAST MASSES: No suspicious masses. CALCIFICATIONS: No new or suspicious calcifications. ARCHITECTURAL DISTORTION: None. DEVELOPING DENSITY: None. ASYMMETRY: None noted. OTHER: No other significant finding. Read with the assistance of CAD: .[facility] - R2 Cenova Version 1.3 .[facility] Imaging - R2 Cenova Version 1.3 .[facility] Imaging - R2 Cenova Version 2.4 .[facility] - R2 Cenova Version 2.4 .[facility] - R2 [employer] Version 9.2 Right breast ultrasound: Ultrasound of the right breast at the 10 to 11 o'clock position, 7 to 8 cm from the nipple demonstrat es a solid mammographic nodule 7 x 6 x 4 mm size. Minimal internal color flow. This could represent a small fibroadenoma or abnormal intramammary lymph node without central hilar fat. Right axilla ultrasound: Enlarged hypoechoic lymph nodes are present without central hilar fat. A r ound solid lymph node 2.2 x 1.3 x 3.3 cm in size is present in the right axilla, this correlates with CT imaging from 08/31/2018. IMPRESSION: Solid right breast nodule, 7 to 8 cm from the nipple at the 10 o'clock to 11 o'clock pos ition. Ultrasound-guided core biopsy with post biopsy clip placement and follow-up two-view mammogra m recommended. Abnormal right axillary lymph node 2.2 x 1.3 x 3.3 cm in size. This is amenable to ultrasound-guided core biopsy with post biopsy clip placement as well. BREAST DENSITY: d. The breasts are extremely dense, which lowers the sensitivity of mammography. BIRAD: 5 Highly suggestive of malignancy. Appropriate action should be taken. RECOMMENDATION: RECOMMENDED FOLLOW UP: Ultrasound-guided core biopsy of the breast parenchymal nodul e at the 10 o'clock position 7 to 8 cm from the nipple. Ultrasound-guided core biopsy of the right a xillary 3.3 cm lymph node. Post biopsy clip placement in both these lesions with follow-up two-view mammogram recommended SPECIFIC INTERVENTION/IMAGING/CONSULTATION RECOMMENDED:As above COMMUNICATION:Patient notified by letter COMMENT: The patient has been notified of the results by letter per SA requirements. Additional no tification policies are in place for contacting patient with suspicious or incomplete findings. Quality ID #225: The [employer] recommends an annual screening mammogram for women aged 40 years or over. This facility utilizes a reminder system to ensure that all patients receive reminder letters, and/or direct phone calls for appointments. This includes reminders for routine scr eening mammograms, diagnostic mammograms, or other Breast Imaging Interventions when appropriate. Th is patient will be placed in the appropriate reminder system. The [employer] (ACR) has developed recommendations for screening MRI of the breast s in certain patient populations, to be used in conjunction with mammography. Breast MRI surveillanc e may be appropriate for women with more than 20% lifetime risk of developing breast cancer as deter mined by genetic testing, significant family history of the disease, or history of mantle radiation f or Hodgkins Disease. ACR Practice Guidelines 2008. DBT Technology DBT is a type of tomographic mammography. With conventional mammography, overlapping breast tissue ma y make lesions difficult to detect, even with good compression. DBT uses an x-ray tube that rotates a round the breast, taking images at different angles. These images are then combined to create thin sl ices of the breast that the radiologist can view as a 3D reconstruction. The [facility] unit can perform full-field digital mammograms (2D imaging); or DBT (3D imaging); or both, in a combination mode that quickly performs both the mammogram and the tomosynthesis scan while the breast is still compressed. PQRS 6045F: Fluoroscopic imaging is not utilized for breast tomosynthesis. TECHNICAL DOCUMENTATION: FINDING NUMBER: (1) ASSESSMENT: (1) JOB ID: [id number] [email or web address]- All Rights Reserved Reading location - IP/workstation name: [email or web address]-[email or web address]
--- NOTE | 2018-08-31 14:48 | WOMENS IMAGING REPORT ---
EXAM DESCRIPTION: 3D DX MAMMO BILAT; U/S BREAST UNILAT LIMITED COMPLETED DATE/TIME: 08/31/2018 11:45 am; 08/31/2018 12:05 pm REASON FOR STUDY: N63.0 RT AXILLA LUMP; RT BREAST N63.0 C56.2 MALIGNANT NEOPLASM OF LEFT OVARY R59. 0 LOCALIZED ENLARGED LYMPH NODES COMPARISON: No previous mammograms available Prior CT chest 08/31/2018 TECHNIQUE: Standard craniocaudal and mediolateral oblique views of each breast recorded using digita l acquisition and breast tomosynthesis. Additional right breast 90 mediolateral view. Right breast and right axilla ultrasound LIMITATIONS: None. FINDINGS: RIGHT BREAST MASSES: In the right breast, upper outer quadrant about 7 to 8 cm from the nipple a low-density well- circumscribed hypoechoic mammographic nodule is present. CALCIFICATIONS: No new or suspicious calcifications. ARCHITECTURAL DISTORTION: None. DEVELOPING DENSITY: None. ASYMMETRY: None noted. OTHER: No other significant findings. LEFT BREAST MASSES: No suspicious masses. CALCIFICATIONS: No new or suspicious calcifications. ARCHITECTURAL DISTORTION: None. DEVELOPING DENSITY: None. ASYMMETRY: None noted. OTHER: No other significant finding. Read with the assistance of CAD: .[facility] R[facility] Cenova Version 1.3 .[facility] - R2 Cenova Version 1.3 .[facility] - R2 Cenova Version 2.4 .[facility] [place] Cenova Version 2.4 .[facility] - R2 Jinrikisha Driver Version 9.2 Right breast ultrasound: Ultrasound of the right breast at the 10 to 11 o'clock position, 7 to 8 cm from the nipple demonstrat es a solid mammographic nodule 7 x 6 x 4 mm size. Minimal internal color flow. This could represent a small fibroadenoma or abnormal intramammary lymph node without central hilar fat. Right axilla ultrasound: Enlarged hypoechoic lymph nodes are present without central hilar fat. A r ound solid lymph node 2.2 x 1.3 x 3.3 cm in size is present in the right axilla, this correlates with CT imaging from 08/31/2018. IMPRESSION: Solid right breast nodule, 7 to 8 cm from the nipple at the 10 o'clock to 11 o'clock pos ition. Ultrasound-guided core biopsy with post biopsy clip placement and follow-up two-view mammogra m recommended. Abnormal right axillary lymph node 2.2 x 1.3 x 3.3 cm in size. This is amenable to ultrasound-guided core biopsy with post biopsy clip placement as well. BREAST DENSITY: d. The breasts are extremely dense, which lowers the sensitivity of mammography. BIRAD: 5 Highly suggestive of malignancy. Appropriate action should be taken. RECOMMENDATION: RECOMMENDED FOLLOW UP: Ultrasound-guided core biopsy of the breast parenchymal nodul e at the 10 o'clock position 7 to 8 cm from the nipple. Ultrasound-guided core biopsy of the right a xillary 3.3 cm lymph node. Post biopsy clip placement in both these lesions with follow-up two-view mammogram recommended SPECIFIC INTERVENTION/IMAGING/CONSULTATION RECOMMENDED:As above COMMUNICATION:Patient notified by letter COMMENT: The patient has been notified of the results by letter per SA requirements. Additional no tification policies are in place for contacting patient with suspicious or incomplete findings. Quality ID #225: The [employer] recommends an annual screening mammogram for women aged 40 years or over. This facility utilizes a reminder system to ensure that all patients receive reminder letters, and/or direct phone calls for appointments. This includes reminders for routine scr eening mammograms, diagnostic mammograms, or other Breast Imaging Interventions when appropriate. Th is patient will be placed in the appropriate reminder system. The [employer] [employer] (ACR) has developed recommendations for screening MRI of the breast s in certain patient populations, to be used in conjunction with mammography. Breast MRI surveillanc e may be appropriate for women with more than 20% lifetime risk of developing breast cancer as deter mined by genetic testing, significant family history of the disease, or history of mantle radiation f or Hodgkins Disease. ACR Practice Guidelines 2008. DBT Technology DBT is a type of tomographic mammography. With conventional mammography, overlapping breast tissue ma y make lesions difficult to detect, even with good compression. DBT uses an x-ray tube that rotates a round the breast, taking images at different angles. These images are then combined to create thin sl ices of the breast that the radiologist can view as a 3D reconstruction. The Wit studio unit can perform full-field digital mammograms (2D imaging); or DBT (3D imaging); or both, in a combination mode that quickly performs both the mammogram and the tomosynthesis scan while the breast is still compressed. PQRS 6045F: Fluoroscopic imaging is not utilized for breast tomosynthesis. TECHNICAL DOCUMENTATION: FINDING NUMBER: (1) ASSESSMENT: (1) JOB ID: [id number] [employer]- All Rights Reserved Reading location - IP/workstation name: [email or web address]
== END ==
LOC: RAD 09:54
PROVIDERS: ATTEND Internal Medicine
DX: N63.11 Unspecified lump in the right breast, upper outer quadrant (principal); C56.2 Malignant neoplasm of left ovary
CPT/HCPCS: 71260; 74177; 76642; 77066; G0279; 77062

== ENCOUNTER → 2018-09-08 | Outpatient (CLI) | payer MEDICARE, MEDICAID | LOC: RAD 10:33 | PROVIDERS: ATTEND Internal Medicine | DX: Z08 Encounter for follow-up examination after completed treatment for malignant neoplasm (principal); C56.2 Malignant neoplasm of left ovary; Z53.8 Procedure and treatment not carried out for other reasons ==

== ENCOUNTER → 2018-11-14 | Outpatient (CLI) | payer MEDICARE, MEDICAID ==
--- NOTE | 2018-11-14 13:27 | RADIOLOGY REPORT (SQ) ---
EXAM DESCRIPTION: CT CHEST WITH COMPLETED DATE/TIME: 11/14/2018 9:13 am REASON FOR STUDY: OVARIAN CA (C56.2) C56.2 MALIGNANT NEOPLASM OF LEFT OVARY COMPARISON: 08/31/2018 and 07/13/2018. PET-CT dated 04/30/2018. TECHNIQUE: CT scan of the chest performed using helical scanning technique with dynamic intravenous contrast injection. Images reviewed with lung, soft tissue and bone windows. Reconstructed coronal and sagittal MPR and MIP images reviewed. All images stored on PACS. All CT scanners at this facility use dose modulation, iterative reconstruction, and/or weight based d osing when appropriate to reduce radiation dose to as low as reasonably achievable (ALARA). [facility]: Dose Right [facility]: CareDose [facility]: Dose Right [facility]: Teradose 4D [facility]: WaveRx CONTRAST TYPE AND DOSE: 67 mL Omnipaque 350- low osmolar. RENAL FUNCTION: BUN 11 creatinine 0.5. RADIATION DOSE: . LIMITATIONS: None. FINDINGS: LUNGS AND PLEURA: Small right pleural effusion unchanged. Mild emphysematous changes with mild chronic scarring. A few scattered subcentimeter ground-glass opacities are unchanged. 7.3 mm nodule in the right lower lobe, prior measurement 7.5 mm. No new nodules or masses. HILAR AND MEDIASTINAL STRUCTURES: No identified masses or abnormal nodes. HEART AND VASCULAR STRUCTURES: No aneurysm or dissection. No central pulmonary emboli. No pericardi al effusion. HARDWARE: Vascular access port. UPPER ABDOMEN: No significant findings. Limited exam. THYROID: No masses. SOFT TISSUES: Bilateral adenopathy has generally improved. Largest right axillary lymph node current ly measures 8.5 by 26.8 mm with prior measurement 13.0 x 28.7 mm. Previous 11 x 13 mm lymph node now measures 5 mm. Largest lymph node in the left axilla currently measures 6.3 x 11.5 mm with prior me asurement 8.2 x 15.8 mm. A left supraclavicular lymph node is unchanged. BONES: No significant finding. OTHER: No other significant finding. IMPRESSION: 1. BILATERAL AXILLARY ADENOPATHY HAS IMPROVED. 2. SMALL NODULE IN THE RIGHT LOWER LOBE AND A FEW FAINT GROUND-GLASS OPACITIES IN BOTH LUNGS ARE UNCH ANGED. NO PROGRESSION AND NO NEW NODULES OR MASSES. SMALL RIGHT PLEURAL EFFUSION ALSO UNCHANGED. TECHNICAL DOCUMENTATION: JOB ID: [id number] Quality ID # 436: Final reports with documentation of one or more dose reduction techniques (e.g., Au tomated exposure control, adjustment of the mA and/or kV according to patient size, use of iterative reconstruction technique) 2010 [employer]- All Rights Reserved Reading location - IP/workstation name: [email or web address]-[email or web address]
--- NOTE | 2018-11-14 13:39 | RADIOLOGY REPORT (SQ) ---
EXAM DESCRIPTION: CT ABD/PELVIS WITH IV ORAL COMPLETED DATE/TIME: 11/14/2018 9:13 am REASON FOR STUDY: OVARIAN CA (C56.2) C56.2 MALIGNANT NEOPLASM OF LEFT OVARY COMPARISON: 08/31/2018 and 07/13/2018. PET-CT dated 04/30/2018. TECHNIQUE: CT scan of the abdomen and pelvis performed using helical scanning technique with dynamic intravenous contrast injection. No oral contrast. Images reviewed with lung, soft tissue, and bone windows. Reconstructed coronal and sagittal MPR images reviewed. Delayed images for evaluation of the urinary system also acquired. All images stored on PACS. All CT scanners at this facility use dose modulation, iterative reconstruction, and/or weight based d osing when appropriate to reduce radiation dose to as low as reasonably achievable (ALARA). [facility]: Dose Right [facility]: CareDose [facility]: Dose Right [facility]: Teradose 4D [facility]: Nu-B-2B CONTRAST TYPE AND DOSE: contrast/concentration: Isovue 350.00 mg/ml; Total Contrast Delivered: 67.0 ml; Total Saline Delivered: 65.0 ml RENAL FUNCTION: BUN 11 creatinine 0.5. RADIATION DOSE: CT Rad equipment meets quality standard of care and radiation dose reduction techniq ues were employed. CTDIvol: 4.4 - 5.3 mGy. DLP: 653 mGy-cm.. LIMITATIONS: None. FINDINGS: LOWER CHEST: See separate report of the CT of the chest. LIVER: Normal size. No masses. No dilated ducts. SPLEEN: Normal size. No focal lesions. PANCREAS: No masses. No significant calcifications. No adjacent inflammation or peripancreatic fluid collections. Pancreatic duct not dilated. GALLBLADDER: No identified stones by CT criteria. No inflammatory changes to suggest cholecystitis. ADRENAL GLANDS: No significant masses or asymmetry. RIGHT KIDNEY AND URETER: No solid masses. No significant calcifications. No hydronephrosis or hyd roureter. LEFT KIDNEY AND URETER: No solid masses. No significant calcifications. No hydronephrosis or hydr oureter. AORTA AND VESSELS: No aneurysm. No dissection. Renal arteries, SMA, celiac without stenosis. RETROPERITONEUM: Previous seen adenopathy has improved. Left layla aortic lymph node currently measures 0.8 x 1.1 cm with prior measurement 0.8 x 1.4 cm (axia l image 27). Lymph node at the iliac bifurcation currently measures 9 mm, unchanged Right external iliac lymph node currently measures 1.2 x 2.1 cm with prior measurement 1.4 x 2.8 cm ( axial image 57). Right pelvic wall lymph node currently measures 0.9 x 1.3 cm with prior measurement 1.3 x 1.8 cm (axi al image 61). BOWEL AND PERITONEAL CAVITY: No masses or inflammatory changes. No free fluid or peritoneal masses. APPENDIX: Normal. PELVIS: No mass. No free fluid. Normal bladder. ABDOMINAL WALL: No masses. No hernias. BONES: No significant or acute findings. OTHER: No other significant finding. IMPRESSION: 1. RETROPERITONEAL AND PELVIC ADENOPATHY HAS IMPROVED SINCE THE PRIOR STUDY IN AUGUST 2018. 2. NO OTHER SIGNIFICANT OR ACUTE FINDING IN THE ABDOMEN OR PELVIS ON CT SCAN WITH IV CONTRAST. TECHNICAL DOCUMENTATION: JOB ID: [id number] Quality ID # 436: Final reports with documentation of one or more dose reduction techniques (e.g., Au tomated exposure control, adjustment of the mA and/or kV according to patient size, use of iterative reconstruction technique) 2010 [employer]- All Rights Reserved Reading location - IP/workstation name: [email or web address]
== END ==
LOC: RAD 08:28
PROVIDERS: ATTEND Internal Medicine
DX: C56.2 Malignant neoplasm of left ovary (principal); R91.1 Solitary pulmonary nodule; R59.0 Localized enlarged lymph nodes
CPT/HCPCS: 71260; 74177

== ENCOUNTER → 2019-02-07 | Day surgery (SDC) | payer MEDICARE, MEDICAID ==
[~2019-02-07] MED LIST changes: +CHONDR SU A NA/HYALUR INTRAOC KIT (SURGICARE) ONE; +EPINEPHRINE INJ/PF 1 MG/1 ML AMPULE ONE; +FENTANYL CITRATE INJ/PF 100 MCG/2 ML AMPUL ONE; -FERRIC CARBOXYMALTOSE 750 MG in NORMAL SALINE 250 ML IV PRN; +KETOROLAC TROMETHAMINE 0.45% 4 DROP/0.4 ML DROPERETTE OD PRN; +LIDOCAINE 1% INJ-PF (10 MG/ML) 30 ML SDV ONE; +MIDAZOLAM 2 MG/2 ML INJ ONE; -NORMAL SALINE 250 ML IV PRN; +ONDANSETRON HCL INJ/PF 4 MG/2 ML SDV ONE; +TOBRAMYCIN SULFATE/DEXAMETH OPH OINTMENT 3.5 GM ONE
[2019-02-07] MEDS: TETRACAINE HCL 0.5% OPH SOLN 0.6 ML DROPERETTE OD PRN ×3 (08:06→08:40)
[2019-02-07] MEDS: TROPICAMIDE 1% OPH SOLN 3 ML OD PRN ×3 (08:07→08:29)
[2019-02-07] MEDS: BESIFLOXACIN HCL 0.6% OPH SUSP 5 ML BOTTLE OD PRN ×3 (08:07→09:08)
[2019-02-07] MEDS: CYCLOPENTOLATE 0.2%/PHENYLEPHRINE 1% OPH SOLN 2 ML OD PRN ×3 (08:07→08:29)
== END ==
LOC: SC 07:41
PROVIDERS: ATTEND Ophthalmology
DX: H25.11 Age-related nuclear cataract, right eye (principal); H04.123 Dry eye syndrome of bilateral lacrimal glands; J44.9 Chronic obstructive pulmonary disease, unspecified; I10 Essential (primary) hypertension; C56.9 Malignant neoplasm of unspecified ovary; F17.210 Nicotine dependence, cigarettes, uncomplicated; I73.00 Raynaud's syndrome without gangrene; Z79.51 Long term (current) use of inhaled steroids; Z79.82 Long term (current) use of aspirin; Z79.899 Other long term (current) drug therapy; Z85.41 Personal history of malignant neoplasm of cervix uteri; Z88.1 Allergy status to other antibiotic agents
CPT/HCPCS: 66984; V2632; J2250; J3490 ×3; A9270; J0171; J3010; J2405; 142

== ENCOUNTER → 2019-02-19 | Outpatient (CLI) | payer MEDICARE, MEDICAID ==
--- NOTE | 2019-02-19 09:25 | RADIOLOGY REPORT (SQ) ---
EXAM DESCRIPTION: CT CHEST WITH COMPLETED DATE/TIME: 02/19/2019 8:28 am REASON FOR STUDY: MALIGNANT NEOPLASM OF LEFT OVARY C56.2 MALIGNANT NEOPLASM OF LEFT OVARY COMPARISON: 11/14/2018 TECHNIQUE: CT scan of the chest performed using helical scanning technique with dynamic intravenous contrast injection. Images reviewed with lung, soft tissue and bone windows. Reconstructed coronal and sagittal MPR and MIP images reviewed. All images stored on PACS. All CT scanners at this facility use dose modulation, iterative reconstruction, and/or weight based d osing when appropriate to reduce radiation dose to as low as reasonably achievable (ALARA). [facility]: Dose Right [facility]: CareDose [facility]: Dose Right [facility]: Teradose 4D [facility]: [employer] CONTRAST TYPE AND DOSE: 67.2 ml Omnipaque 350 RENAL FUNCTION: Creatinine- 0.7 RADIATION DOSE: Total exam DLP: 666.56 mGy. LIMITATIONS: None. FINDINGS: LUNGS AND PLEURA: Stable slightly spiculated, ill-defined subcentimeter nodules in the marisol ngs. Emphysematous changes in the lungs and areas of scar atelectasis. Stable mild bronchiectatic c hanges. Interval resolution of the small right pleural effusion. No pneumothorax or pleural effusio n. No pneumothorax. The central airways are clear. HILAR AND MEDIASTINAL STRUCTURES: No identified masses or abnormal nodes. HEART AND VASCULAR STRUCTURES: No aneurysm or dissection. No central pulmonary emboli. Mild coronar y artery calcifications. No pericardial effusion. HARDWARE: Right Zbmidw-G-Ihom catheter, stable finding. UPPER ABDOMEN: Please see CT abdomen report. THYROID AND OTHER SOFT TISSUES: Slight decrease in size of the bilateral axillary and subpectoral ly mph nodes. One of the largest right axillary lymph nodes measures 0.9 cm x 2.3 cm on the current exa mination, compared to 0.9 cm x 2.7 cm on the prior examination. On the left, one of the largest lymp h nodes measures 0.8 cm x 1.1 cm, compared to 0.8 x 1.2 cm. The cardiophrenic lymph nodes are decreasing in size with one of the largest on the current study man suring 0.9 cm in short axis diameter, compared to 1.3 cm on the prior study. BONES: The osseous structures are stable in appearance. OTHER: Compared to 1.1 cm x 0.2 IMPRESSION: 1. Stable appearance to the slightly spiculated, ill-defined subcentimeter pulmonary no dules since the prior study dated 11/14/2018. 2. Improving bilateral axillary and subpectoral lymphadenopathy and cardiophrenic lymphadenopathy. TECHNICAL DOCUMENTATION: JOB ID: [id number] Quality ID # 436: Final reports with documentation of one or more dose reduction techniques (e.g., Au tomated exposure control, adjustment of the mA and/or kV according to patient size, use of iterative reconstruction technique) 2010 [employer]- All Rights Reserved Reading location - IP/workstation name: [email or web address]
--- NOTE | 2019-02-19 10:30 | RADIOLOGY REPORT (SQ) ---
EXAM DESCRIPTION: CT ABD/PELVIS WITH IV ORAL COMPLETED DATE/TIME: 02/19/2019 8:28 am REASON FOR STUDY: MALIGNANT NEOPLASM OF LEFT OVARY C56.2 MALIGNANT NEOPLASM OF LEFT OVARY COMPARISON: 11/14/2018 TECHNIQUE: CT scan of the abdomen and pelvis performed using helical scanning technique with dynamic intravenous contrast injection. No oral contrast. Images reviewed with lung, soft tissue, and bone windows. Reconstructed coronal and sagittal MPR images reviewed. Delayed images for evaluation of the urinary system also acquired. All images stored on PACS. All CT scanners at this facility use dose modulation, iterative reconstruction, and/or weight based d osing when appropriate to reduce radiation dose to as low as reasonably achievable (ALARA). [facility]: Dose Right [facility]: CareDose [facility]: Dose Right [facility]: Teradose 4D [facility]: [employer] CONTRAST TYPE AND DOSE: contrast/concentration: Isovue 350.00 mg/ml; Total Contrast Delivered: 67.0 ml; Total Saline Delivered: 65.0 ml RENAL FUNCTION: Creatinine- 0.7 RADIATION DOSE: CT Rad equipment meets quality standard of care and radiation dose reduction techniq ues were employed. CTDIvol: 4.4 - 5.6 mGy. DLP: 667 mGy-cm.. LIMITATIONS: None. FINDINGS: LOWER CHEST: Please see CT chest report. LIVER: Stable slight nodular contour to the liver. No dilated ducts. The hepatic and portal veins are patent. SPLEEN: Normal size. No focal lesions. PANCREAS: No masses. No significant calcifications. No adjacent inflammation or peripancreatic fluid collections. Pancreatic duct not dilated. GALLBLADDER: Prior cholecystectomy. ADRENAL GLANDS: No significant masses or asymmetry. RIGHT KIDNEY AND URETER: No solid masses. No significant calcifications. No hydronephrosis or hyd roureter. LEFT KIDNEY AND URETER: No solid masses. No significant calcifications. No hydronephrosis or hydr oureter. AORTA AND VESSELS: Mild to moderate atherosclerotic changes involving the abdominal aorta and branch vessels. No aneurysm. No dissection. Renal arteries, SMA, celiac without stenosis. RETROPERITONEUM: The periaortic, left para-aortic, lymph nodes at the aortic bifurcation, and pelvic lymph nodes are basically unchanged in appearance. BOWEL AND PERITONEAL CAVITY: Stable appearance to the omental nodules in the left upper quadrant of the abdomen, axial images 19- 27, series 3. The sigmoid colon is incompletely distended with oral co ntrast limiting the examination somewhat. No free fluid. APPENDIX: Normal. PELVIS: Prior hysterectomy. The vaginal cuff is unremarkable in appearance. No free fluid. Normal bladder. ABDOMINAL WALL: No masses. No hernias. BONES: The osseous structures are stable in appearance. OTHER: No other significant finding. IMPRESSION: 1. No significant interval changes since the previous examination dated 11/14/2018. 2. Stable appearing omental nodules in the left upper quadrant of the abdomen. 3. The retroperitoneal and pelvic lymphadenopathy is basically unchanged. 4. Additional stable findings as above. TECHNICAL DOCUMENTATION: JOB ID: [id number] Quality ID # 436: Final reports with documentation of one or more dose reduction techniques (e.g., Au tomated exposure control, adjustment of the mA and/or kV according to patient size, use of iterative reconstruction technique) 2010 [employer]- All Rights Reserved Reading location - IP/workstation name: [email or web address]
== END ==
LOC: RAD 08:03
PROVIDERS: ATTEND Internal Medicine
DX: C56.2 Malignant neoplasm of left ovary (principal)
CPT/HCPCS: 71260; 74177

== ENCOUNTER 2019-02-21 07:54 | Day surgery (SDC) | payer MEDICARE, MEDICAID ==
[~2019-02-21 07:54] MED LIST changes: -CHONDR SU A NA/HYALUR INTRAOC KIT (SURGICARE) ONE; -EPINEPHRINE INJ/PF 1 MG/1 ML AMPULE ONE; -FENTANYL CITRATE INJ/PF 100 MCG/2 ML AMPUL ONE; -KETOROLAC TROMETHAMINE 0.45% 4 DROP/0.4 ML DROPERETTE OD PRN; +KETOROLAC TROMETHAMINE 0.45% 4 DROP/0.4 ML DROPERETTE OS PRN; -LIDOCAINE 1% INJ-PF (10 MG/ML) 30 ML SDV ONE; -MIDAZOLAM 2 MG/2 ML INJ ONE; -ONDANSETRON HCL INJ/PF 4 MG/2 ML SDV ONE; -TOBRAMYCIN SULFATE/DEXAMETH OPH OINTMENT 3.5 GM ONE
[2019-02-21] MEDS: BESIFLOXACIN HCL 0.6% OPH SUSP 5 ML BOTTLE OS PRN ×4 (08:25→09:23)
[2019-02-21] MEDS: TROPICAMIDE 1% OPH SOLN 3 ML OS PRN ×3 (08:25→08:45)
[2019-02-21] MEDS: CYCLOPENTOLATE 0.2%/PHENYLEPHRINE 1% OPH SOLN 2 ML OS PRN ×3 (08:25→08:45)
[2019-02-21] MEDS: TETRACAINE HCL 0.5% OPH SOLN 0.6 ML DROPERETTE OS PRN ×4 (08:26→09:02)
[2019-02-21] MEDS ORDERED: MIDAZOLAM 2 MG/2 ML INJ ONE (09:08)
[2019-02-21] MEDS ORDERED: FENTANYL CITRATE INJ/PF 100 MCG/2 ML AMPUL ONE (09:09)
[2019-02-21] MEDS: LIDOCAINE 1% INJ-PF (10 MG/ML) 30 ML SDV ONE ×2 (09:14)
[2019-02-21] MEDS: EPINEPHRINE INJ/PF 1 MG/1 ML AMPULE ONE ×2 (09:14)
[2019-02-21] MEDS: CHONDR SU A NA/HYALUR INTRAOC KIT (SURGICARE) ONE ×2 (09:14)
[2019-02-21] MEDS: TOBRAMYCIN SULFATE/DEXAMETH OPH OINTMENT 3.5 GM ONE ×2 (09:23)
[2019-02-21] MEDS ORDERED: ONDANSETRON HCL INJ/PF 4 MG/2 ML SDV ONE (09:27)
== END 2019-02-21 10:02 | disposition home or self-care (01) ==
LOC: SC 07:54
PROVIDERS: ATTEND Ophthalmology
DX: H25.12 Age-related nuclear cataract, left eye (principal); Z98.41 Cataract extraction status, right eye; J44.9 Chronic obstructive pulmonary disease, unspecified; I10 Essential (primary) hypertension; F17.210 Nicotine dependence, cigarettes, uncomplicated; Z79.82 Long term (current) use of aspirin; Z85.3 Personal history of malignant neoplasm of breast; Z85.43 Personal history of malignant neoplasm of ovary; Z79.899 Other long term (current) drug therapy; Z88.5 Allergy status to narcotic agent
CPT/HCPCS: 66984; V2632; J2250; J3490 ×3; A9270; J0171; J2405; 142; J3010

== ENCOUNTER → 2019-03-26 | Outpatient (CLI) | payer MEDICARE, MEDICAID ==
--- NOTE | 2019-03-26 13:20 | RADIOLOGY REPORT (SQ) ---
EXAM DESCRIPTION: CHEST PA/LATERAL COMPLETED DATE/TIME: 03/26/2019 10:20 am REASON FOR STUDY: SHORTNESS OF BREATH COMPARISON: 03/04/2019. EXAM PARAMETERS: NUMBER OF VIEWS: two views TECHNIQUE: Digital Frontal and Lateral radiographic views of the chest acquired. RADIATION DOSE: NA LIMITATIONS: none FINDINGS: LUNGS AND PLEURA: No opacities, masses or pneumothorax. No pleural effusion. MEDIASTINUM AND HILAR STRUCTURES: No masses or contour abnormalities. HEART AND VASCULAR STRUCTURES: Heart normal size. No evidence for failure. BONES: No acute findings. Old rib fractures. HARDWARE: Vascular access port. Clips in the upper abdomen. OTHER: No other significant finding. IMPRESSION: NO SIGNIFICANT RADIOGRAPHIC FINDING IN THE CHEST. TECHNICAL DOCUMENTATION: JOB ID: [id number] [employer]- All Rights Reserved Reading location - IP/workstation name: [email or web address]
== END ==
LOC: OD 10:07
PROVIDERS: ATTEND Internal Medicine
DX: R06.02 Shortness of breath (principal)
CPT/HCPCS: 71046

== ENCOUNTER → 2019-05-02 | Outpatient (CLI) | payer MEDICARE, MEDICAID ==
--- NOTE | 2019-05-02 11:44 | RADIOLOGY REPORT (SQ) ---
EXAM DESCRIPTION: CT ABD/PELVIS WITH IV ORAL COMPLETED DATE/TIME: 05/02/2019 10:01 am REASON FOR STUDY: C56.2 MALIGNANT NEOPLASM OF LEFT OVARY C56.2 MALIGNANT NEOPLASM OF LEFT OVARY COMPARISON: 02/19/2019 TECHNIQUE: CT scan of the abdomen and pelvis performed using helical scanning technique with dynamic intravenous contrast injection. Oral contrast. Images reviewed with lung, soft tissue, and bone win dows. Reconstructed coronal and sagittal MPR images reviewed. Delayed images for evaluation of the ur inary system also acquired. All images stored on PACS. All CT scanners at this facility use dose modulation, iterative reconstruction, and/or weight based d osing when appropriate to reduce radiation dose to as low as reasonably achievable (ALARA). [facility]: Dose Right [facility]: CareDose [facility]: Dose Right [facility]: Teradose 4D [facility]: [employer] CONTRAST TYPE AND DOSE: contrast/concentration: Isovue 350.00 mg/ml; Total Contrast Delivered: 67.0 ml; Total Saline Delivered: 65.0 ml RENAL FUNCTION: Creatinine 0.7 RADIATION DOSE: CT Rad equipment meets quality standard of care and radiation dose reduction techniq ues were employed. CTDIvol: 4.4 - 4.9 mGy. DLP: 623 mGy-cm.. LIMITATIONS: None. FINDINGS: LOWER CHEST: See separate report of the CT of the chest. LIVER: Normal size. No masses. No dilated ducts. SPLEEN: Normal size. No focal lesions. PANCREAS: No masses. No significant calcifications. No adjacent inflammation or peripancreatic fluid collections. Pancreatic duct not dilated. GALLBLADDER: Surgically absent. ADRENAL GLANDS: No significant masses or asymmetry. RIGHT KIDNEY AND URETER: No solid masses. No significant calcifications. No hydronephrosis or hyd roureter. LEFT KIDNEY AND URETER: No solid masses. No significant calcifications. No hydronephrosis or hydr oureter. AORTA AND VESSELS: No aneurysm. No dissection. Renal arteries, SMA, celiac without stenosis. RETROPERITONEUM: Periaortic and pelvic adenopathy is increased since the earlier study. BOWEL AND PERITONEAL CAVITY: No obvious bowel mass. There is increased omental disease in the left u pper quadrant compared to the earlier study. APPENDIX: Normal. PELVIS: No mass. No free fluid. Normal bladder. ABDOMINAL WALL: No masses. No hernias. BONES: No significant or acute findings. OTHER: No other significant finding. IMPRESSION: There is slight increase in omental disease. There is increased retroperitoneal adenopa thy. TECHNICAL DOCUMENTATION: JOB ID: [id number] Quality ID # 436: Final reports with documentation of one or more dose reduction techniques (e.g., Au tomated exposure control, adjustment of the mA and/or kV according to patient size, use of iterative reconstruction technique) 2010 [employer]- All Rights Reserved Reading location - IP/workstation name: [email or web address]
--- NOTE | 2019-05-02 12:04 | RADIOLOGY REPORT (SQ) ---
EXAM DESCRIPTION: CT CHEST WITH COMPLETED DATE/TIME: 05/02/2019 11:42 am REASON FOR STUDY: C56.2 MALIGNANT NEOPLASM OF LEFT OVARY C56.2 MALIGNANT NEOPLASM OF LEFT OVARY COMPARISON: 03/02/2019 TECHNIQUE: CT scan of the chest performed using helical scanning technique with dynamic intravenous contrast injection. Images reviewed with lung, soft tissue and bone windows. Reconstructed coronal and sagittal MPR and MIP images reviewed. All images stored on PACS. All CT scanners at this facility use dose modulation, iterative reconstruction, and/or weight based d osing when appropriate to reduce radiation dose to as low as reasonably achievable (ALARA). [facility]: Dose Right [facility]: CareDose [facility]: Dose Right [facility]: Teradose 4D [facility]: [place] CONTRAST TYPE AND DOSE: 67 mL Omnipaque 350- low osmolar. RENAL FUNCTION: Creatinine 0.7 RADIATION DOSE: . LIMITATIONS: None. FINDINGS: LUNGS AND PLEURA: Small right pleural effusion, improved. There is now a focal area of pl eural thickening on the right on image 46 series 2. There is a 9 mm slightly spiculated lesion on th e right on image 73. This is stable. Airspace disease present in the lungs on the prior study has r esolved. HILAR AND MEDIASTINAL STRUCTURES: There are some small nonspecific mediastinal nodes that are stable. HEART AND VASCULAR STRUCTURES: No aneurysm or dissection. No central pulmonary emboli. No pericardi al effusion. HARDWARE: Injection port on the right. UPPER ABDOMEN: See separate report of the CT of the abdomen. THYROID AND OTHER SOFT TISSUES: Normal thyroid. Axillary adenopathy is present. This is new. BONES: No significant finding. OTHER: No other significant finding. IMPRESSION: There is now bilateral axillary adenopathy. There is a new area of pleural thickening o n the right as described. Prior airspace disease is no longer seen. There is a small stable right l nigel lesion. TECHNICAL DOCUMENTATION: JOB ID: [id number] Quality ID # 436: Final reports with documentation of one or more dose reduction techniques (e.g., Au tomated exposure control, adjustment of the mA and/or kV according to patient size, use of iterative reconstruction technique) 2010 [employer] All Rights Reserved Reading location - IP/workstation name: [email or web address]
== END ==
LOC: RAD 09:33
PROVIDERS: ATTEND Internal Medicine
DX: C56.2 Malignant neoplasm of left ovary (principal)
CPT/HCPCS: 71260; 74177; 82565

== ENCOUNTER 2019-06-21 07:31 | Day surgery (SDC) | payer MEDICARE, MEDICAID ==
[2019-06-21 08:19] VITALS: BP 138/70
[2019-06-21 08:26] LABS: HEMATOCRIT 28.2 % (36.0-47.0); HEMOGLOBIN 9.4 g/dL (12.0-15.5); MEAN CORPUSCULAR HEMOGLOBIN 30.1 pg (27.0-33.4); MEAN CORPUSCULAR HGB CONC 33.3 g/dL (32.0-36.0); MEAN CORPUSCULAR VOLUME 91 fl (80-97); PLATELET COUNT 345 10^3/uL (150-450); RED BLOOD COUNT 3.12 10^6/uL (3.72-5.28); WHITE BLOOD COUNT 3.5 10^3/uL (4.0-10.5)
[2019-06-21 08:39] LABS: INTERNATIONAL RATION (INR) 0.93; PROTHROMBIN TIME 12.5 SEC (11.4-15.4)
[2019-06-21 08:40] LABS: PARTIAL THROMBOPLASTIN TIME 31.5 SEC (23.5-35.8)
[2019-06-21 08:45] LABS: BLOOD UREA NITROGEN 16 mg/dL (7-20)
== END 2019-06-21 11:00 | disposition home or self-care (01) ==
LOC: RAD 07:31
PROVIDERS: ATTEND Internal Medicine
DX: R18.8 Other ascites (principal); Z53.9 Procedure and treatment not carried out, unspecified reason
CPT/HCPCS: 36415; 82565; 84520; 85027; 85610; 85730

== ENCOUNTER → 2019-08-16 | Outpatient (CLI) | payer MEDICARE, MEDICAID ==
--- NOTE | 2019-08-16 13:00 | RADIOLOGY REPORT (SQ) ---
EXAM DESCRIPTION: CT CHEST WITH; CT ABD/PELVIS WITH IV ORAL COMPLETED DATE/TIME: 08/16/2019 8:29 am REASON FOR STUDY: OVARIAN CANCER C56.2 MALIGNANT NEOPLASM OF LEFT OVARY COMPARISON: PET-CT 04/30/2018 CT chest 03/02/2019 CT chest abdomen pelvis 05/02/2019, 02/19/2019, 11/14/2018 CONTRAST TYPE AND DOSE: contrast/concentration: Isovue 350.00 mg/ml; Total Contrast Delivered: 70.0 ml; Total Saline Delivered: 65.0 ml RENAL FUNCTION: Creatinine 0.8 TECHNIQUE: CT scan of the chest performed using helical scanning technique with dynamic intravenous contrast injection. Images reviewed with lung, soft tissue and bone windows. Reconstructed coronal a nd sagittal MPR images reviewed. All images stored on PACS. CT scan of the abdomen and pelvis performed with intravenous and with oral contrastusing helical scan lyric technique with dynamic intravenous contrast injection. Images reviewed with lung, soft tissue a nd bone windows. Reconstructed coronal and sagittal MPR images reviewed. Delayed images for evaluat ion of the urinary system also acquired and evaluated. All images stored on PACS. All CT scanners at this facility use dose modulation, iterative reconstruction, and/or weight based d osing when appropriate to reduce radiation dose to as low as reasonably achievable (ALARA). [facility]: Dose Right [facility]: CareDose [facility]: Dose Right [facility]: Teradose 4D [facility]: [employer] RADIATION DOSE: CT Rad equipment meets quality standard of care and radiation dose reduction techniq ues were employed. CTDIvol: 4.5 - 5.7 mGy. DLP: 690 mGy-cm. . LIMITATIONS: None. FINDINGS: CHEST: LUNGS AND PLEURA: No opacities, nodules, masses. No pneumothorax. No effusions. HILAR AND MEDIASTINAL STRUCTURES: No identified masses or abnormal nodes. HEART AND VASCULAR STRUCTURES: No aneurysm or dissection. No central pulmonary emboli. No pericardi al effusion. HARDWARE: Right-sided permanent central line tip superior vena cava THYROID AND OTHER SOFT TISSUES: Bilateral axillary adenopathy is improved compared to 05/02/2019. Ind ex lymph nodes are as follows: Right axilla 2.4 x 0.8 cm axial image 16/70 (was 3.7 x 1.5 cm in size on 05/02/2019). Left axilla 1.4 x 1.2 cm axial image 615/70 (was 2.6 x 2 cm on 05/02/2019). BONES: No significant finding. Old healed right lateral rib fractures OTHER: No other significant finding. ABDOMEN AND PELVIS: LIVER: Normal size. No masses. No dilated ducts. SPLEEN: Normal size. No focal lesions. PANCREAS: No masses. No significant calcifications. No adjacent inflammation or peripancreatic fluid collections. Pancreatic duct not dilated. GALLBLADDER: Surgically absent. ADRENAL GLANDS: No significant masses or asymmetry. RIGHT KIDNEY AND URETER: No solid masses. No significant calcification. No hydronephrosis or hydroure ter. LEFT KIDNEY AND URETER: No solid masses. No significant calcification. No hydronephrosis or hydrouret er. AORTA AND VESSELS: No aneurysm. No dissection. Renal arteries, SMA, celiac without stenosis. RETROPERITONEUM: Decrease in size of left para-aortic lymph node compared to 05/02/2019. On the curre nt scan, a 1.1 by 0.8 cm lymph node is present on axial image 66/70 (was 2 x 1.4 cm in size on 019). BOWEL AND PERITONEAL CAVITY: No masses or inflammatory changes. No free fluid or peritoneal masses. Patient drank oral contrast. No CT evidence of bowel obstruction. No free intraperitoneal air or fl uid APPENDIX: Normal. ABDOMINAL WALL: No masses. No hernias. PELVIS: No mass or free fluid. Normal bladder. Post total hysterectomy. BONES: No significant or acute findings. OTHER: No other significant finding. IMPRESSION: Decreased size of bilateral axillary adenopathy compared to 05/02/2019 Decrease size of left retroperitoneal lymph compared 05/02/2019 TECHNICAL DOCUMENTATION: JOB ID: [id number] Quality ID # [id number]: Final reports with documentation of one or more dose reduction techniques (e.g., Au tomated exposure control, adjustment of the mA and/or kV according to patient size, use of iterative reconstruction technique) 2010 [employer]- All Rights Reserved Reading location - IP/workstation name: [email or web address]
== END ==
LOC: RAD 07:50
PROVIDERS: ATTEND Internal Medicine
DX: C56.2 Malignant neoplasm of left ovary (principal)
CPT/HCPCS: 71260; 74177; 82565

== ENCOUNTER → 2019-10-11 | Outpatient (CLI) | payer MEDICARE, MEDICAID ==
--- NOTE | 2019-10-11 12:37 | RADIOLOGY REPORT (SQ) ---
EXAM DESCRIPTION: CT CHEST WITH COMPLETED DATE/TIME: 10/11/2019 9:43 am REASON FOR STUDY: MALIGNANT NEOPLASM OF LEFT OVARY C56.2 MALIGNANT NEOPLASM OF LEFT OVARY COMPARISON: 08/16/2019 TECHNIQUE: CT scan of the chest performed using helical scanning technique with dynamic intravenous contrast injection. Images reviewed with lung, soft tissue and bone windows. Reconstructed coronal and sagittal MPR and MIP images reviewed. All images stored on PACS. All CT scanners at this facility use dose modulation, iterative reconstruction, and/or weight based d osing when appropriate to reduce radiation dose to as low as reasonably achievable (ALARA). [facility]: Dose Right [facility]: CareDose [facility]: Dose Right [facility]: Teradose 4D [facility]: [employer] CONTRAST TYPE AND DOSE: 67 cc of Omnipaque 350 RENAL FUNCTION: Creatinine 0.8 RADIATION DOSE: . LIMITATIONS: None. FINDINGS: LUNGS AND PLEURA: Minimal scattered areas of ground-glass attenuation and centrilobular no dular opacities most conspicuous within the right middle lobe and lingula. There is a more focal rig ht lower lobe nodule measuring 7 mm (series 6, image 80), stable from prior. No pleural effusion or pneumothorax. HILAR AND MEDIASTINAL STRUCTURES: No discrete mediastinal or hilar adenopathy. Decreased size of the axillary lymph nodes. Largest on the left measures 10 mm in short axis, previously 12 mm (series 2, image 15). Stable right axillary lymph node measuring 8 mm in short axis. HEART AND VASCULAR STRUCTURES: Scattered coronary atherosclerosis. No pericardial effusion. HARDWARE: Right sided internal jugular based chest port with catheter tip at cavoatrial junction. UPPER ABDOMEN: See separate report of the CT of the abdomen. THYROID AND OTHER SOFT TISSUES: Unremarkable thyroid. No additional soft tissue masses. BONES: No acute bony abnormality. No discrete lytic or blastic osseous lesions. Chronic right-sided rib fractures. OTHER: No other significant finding. IMPRESSION: 1. Scattered ground-glass centrilobular nodular opacities most conspicuous within the r ight middle lobe and lingula, likely infectious/inflammatory. No other evidence of new intrathoracic metastatic disease. 2. Stable to decreased size of the bilateral axillary lymph nodes as above. TECHNICAL DOCUMENTATION: JOB ID: [id number] Quality ID # [id number]: Final reports with documentation of one or more dose reduction techniques (e.g., Au tomated exposure control, adjustment of the mA and/or kV according to patient size, use of iterative reconstruction technique) 2010 [email or web address]- All Rights Reserved Reading location - IP/workstation name: [email or web address]
--- NOTE | 2019-10-11 14:43 | RADIOLOGY REPORT (SQ) ---
EXAM DESCRIPTION: CT ABD/PELVIS WITH IV ORAL COMPLETED DATE/TIME: 10/11/2019 9:22 am REASON FOR STUDY: MALIGNANT NEOPLASM OF LEFT OVARY C56.2 MALIGNANT NEOPLASM OF LEFT OVARY COMPARISON: CT abdomen pelvis 08/16/2019, 05/04/2019, 02/19/2019, 02/19/2019 TECHNIQUE: CT scan of the abdomen and pelvis performed using helical scanning technique with dynamic intravenous contrast injection. No oral contrast. Images reviewed with lung, soft tissue, and bone windows. Reconstructed coronal and sagittal MPR images reviewed. Delayed images for evaluation of the urinary system also acquired. All images stored on PACS. All CT scanners at this facility use dose modulation, iterative reconstruction, and/or weight based d osing when appropriate to reduce radiation dose to as low as reasonably achievable (ALARA). [facility]: Dose Right [facility]: CareDose [facility]: Dose Right [facility]: Teradose 4D [facility]: [employer] CONTRAST TYPE AND DOSE: contrast/concentration: Isovue 350.00 mg/ml; Total Contrast Delivered: 67.0 ml; Total Saline Delivered: 65.0 ml RENAL FUNCTION: Creatinine 0.8 RADIATION DOSE: CT Rad equipment meets quality standard of care and radiation dose reduction techniq ues were employed. CTDIvol: 4.4 - 5.2 mGy. DLP: 656 mGy-cm.. LIMITATIONS: None. FINDINGS: LOWER CHEST: Please see separate report LIVER: Normal size. No masses. No dilated ducts. SPLEEN: Normal size. No focal lesions. PANCREAS: No masses. No significant calcifications. No adjacent inflammation or peripancreatic fluid collections. Pancreatic duct not dilated. GALLBLADDER: Surgically absent ADRENAL GLANDS: No significant masses or asymmetry. RIGHT KIDNEY AND URETER: No solid masses. No significant calcifications. No hydronephrosis or hyd roureter. LEFT KIDNEY AND URETER: No solid masses. No significant calcifications. No hydronephrosis or hydr oureter. AORTA AND VESSELS: No aneurysm. No dissection. Renal arteries, SMA, celiac without stenosis. RETROPERITONEUM: No retroperitoneal adenopathy, hemorrhage or masses. Stable 1.1 x 0.7 cm left retro peritoneal lymph node axial image BOWEL AND PERITONEAL CAVITY: Stranding in the left upper quadrant fat seen on axial image is un changed over the series of exams. No ascites. No free intraperitoneal air. Oral contrast throughou t the gastrointestinal tract without bowel obstruction APPENDIX: Not well seen PELVIS: No mass. No free fluid. Normal bladder. Post total hysterectomy. ABDOMINAL WALL: No masses. No hernias. BONES: No significant or acute findings. OTHER: No other significant finding. IMPRESSION: Total hysterectomy for ovarian cancer. No CT evidence of progression of disease in the abdomen or pelvis TECHNICAL DOCUMENTATION: JOB ID: [id number] Quality ID # 436: Final reports with documentation of one or more dose reduction techniques (e.g., Au tomated exposure control, adjustment of the mA and/or kV according to patient size, use of iterative reconstruction technique) 2010 [employer]- All Rights Reserved Reading location - IP/workstation name: [email or web address]
== END ==
LOC: RAD 08:42
PROVIDERS: ATTEND Internal Medicine
DX: C56.2 Malignant neoplasm of left ovary (principal)
CPT/HCPCS: 71260; 74177

== ENCOUNTER 2019-11-24 22:48 | Inpatient (IN) | payer MEDICARE, MEDICAID ==
[2019-11-24 23:21] LABS: HEMATOCRIT 34.8 % (36.0-47.0); HEMOGLOBIN 11.6 g/dL (12.0-15.5); MEAN CORPUSCULAR HEMOGLOBIN 30.6 pg (27.0-33.4); MEAN CORPUSCULAR HGB CONC 33.2 g/dL (32.0-36.0); MEAN CORPUSCULAR VOLUME 92 fl (80-97); PLATELET COUNT 521 10^3/uL (150-450); RED BLOOD COUNT 3.78 10^6/uL (3.72-5.28); RED CELL DISTRIBUTION WIDTH 16.8 % (11.5-14.0); WHITE BLOOD COUNT 4.5 10^3/uL (4.0-10.5)
[2019-11-24] MEDS ORDERED: NORMAL SALINE 1000 ML 1,000 ML IV ONE (23:41)
[2019-11-24] MEDS ORDERED: ONDANSETRON HCL INJ/PF 4 MG/2 ML SDV IV ONE (23:42)
[2019-11-24] MEDS ORDERED: MORPHINE SULFATE 10 MG/ML INJ IV ONE (23:42)
--- NOTE | 2019-11-24 23:47 | ER Document Report ---
ED GI/ - General TRAVEL OUTSIDE OF THE [place] IN LAST 30 DAYS: No - Related Data Home Medications: anoro, asa, pepcid, lasix, lisinopril <JODRI ELLISON - Last Filed: 11/25/19 02:09> <RUBEN COWAN JR - Last Filed: 11/25/19 05:35> - General Chief Complaint: Abdominal Pain Stated Complaint: ABDOMINAL PAIN Time Seen by Provider: 11/24/19 23:20 Primary Care Provider: KELSEY NAM MD [Primary Care Provider] - Follow up as needed Notes: 64-year-old woman presents to the emergency department with a complaint of abdominal pain which began this morning at about 10 AM. Patient states that she was diagnosed with stage 4 ovarian cancer and has had surgical and chemotherapy treatment. She has had associated nausea and vomiting and unable to keep down fluids. She also notes constant nausea and pain which she rates a 10/10. (JORDI ELLISON) - Related Data Allergies/Adverse Reactions: cephalexin monohydrate [From Keflex] Allergy (Mild, Verified 11/24/19 23:16) rash Tetanus Vaccines and Toxoid [Tetanus] Allergy (Mild, Verified 11/24/19 23:16) ARM SWELLING duloxetine HCl [From Cymbalta] Allergy (Verified 11/24/19 23:16) Vomiting oxycodone HCl [From Percocet] Allergy (Verified 11/24/19 23:16) Vomiting tramadol HCl [From Ultracet] Allergy (Verified 11/24/19 23:16) Vomiting azithromycin [From Zithromax] Adverse Reaction (Intermediate, Verified 11/24/19 23:16) N/V Past Medical History - Social History Smoking Status: Current Every Day Smoker Frequency of alcohol use: None Drug Abuse: None Family History: CAD, Hypertension, Malignancy, Other - Kidney stones, renal vascular disease. denies: CVA, DM Patient has suicidal ideation: No Patient has homicidal ideation: No - Past Medical History Cardiac Medical History: Reports: Hx Hypertension Denies: Hx Coronary Artery Disease, Hx Heart Attack Pulmonary Medical History: Reports: Hx Bronchitis, Hx COPD Denies: Hx Asthma, Hx Pneumonia Neurological Medical History: Denies: Hx Cerebrovascular Accident, Hx Seizures Endocrine Medical History: Denies: Hx Diabetes Mellitus Type 1, Hx Diabetes Mellitus Type 2, Hx Hyperthyroidism, Hx Hypothyroidism Renal/ Medical History: Denies: Hx Peritoneal Dialysis Malignancy Medical History: Reports: Hx Ovarian Cancer - stage IV per patient, unsure of metastasis GI Medical History: Denies: Hx Cirrhosis, Hx Hepatitis, Hx Hiatal Hernia, Hx Ulcer Musculoskeletal Medical History: Reports Hx Arthritis - GENERALIZED, Denies Hx Gout Skin Medical History: Denies Hx Eczema, Denies Hx Psoriasis Infectious Medical History: Denies: Hx Hepatitis Past Surgical History: Reports: Hx Cholecystectomy, Hx Hysterectomy, Other - Bilateral salpingectomy and oophorectomy.. Denies: Hx Mastectomy, Hx Open Heart Surgery, Hx Pacemaker - Immunizations Hx Diphtheria, Pertussis, Tetanus Vaccination: No <JORDI ELLISON - Last Filed: 11/25/19 02:09> Review of Systems <JORDI ELLISON - Last Filed: 11/25/19 02:09> - Review of Systems Notes: Constitutional: Negative for fever. HENT: Negative for sore throat. Eyes: Negative for visual changes. Cardiovascular: Negative for chest pain. Respiratory: Negative for shortness of breath. Gastrointestinal: See HPI Genitourinary: Negative for dysuria. Musculoskeletal: Negative for back pain. Skin: Negative for rash. Neurological: Negative for headaches, weakness or numbness. 10 point ROS negative except as marked above and in HPI. (JORDI ELLISON) Physical Exam <JORDI ELLISON - Last Filed: 11/25/19 02:09> - Vital signs Vitals: Resp 23 H 11/24/19 22:59 - Notes Notes: PHYSICAL EXAMINATION: Physical Exam: General: Well-nourished well-developed female with moderate distress secondary to pain. HEENT: NC/AT, pupils equal round and reactive to light, MM moist,nares clear, Neck: supple, no adenopathy, no masses. Lungs: clear, no wheezing, no rales no rhonchi CVS: Regular rate and rhythm no murmur gallop or rub Abdomen: Soft active diffusely abdominal tenderness, no guarding, no rebound, no masses. Ext: No edema clubbing or cyanosis. Neuro: Alert and responsive, moving all 4 extremities on command, cranial nerves intact. Skin: Intact no open lesions, no rash PSYCH: Normal mood, normal affect. (JORDI ELLISON) Course - Laboratory Result Diagrams: 11/24/19 23:10 11/24/19 23:10 <JORDI ELLISON - Last Filed: 11/25/19 02:09> - Laboratory Result Diagrams: 11/24/19 23:10 11/24/19 23:10 <RUBEN COWAN JR - Last Filed: 11/25/19 05:35> - Re-evaluation Re-evalutation: 11/25/19 02:09 I discussed the findings of the CT scan with the patient and explained to her that the findings suggest possible early small bowel obstruction and that this finding may require her to be hospitalized for a period of evaluation. The patient acknowledges understanding of this and is in agreement with that plan. Dr. Iniguez, surgicalist was contacted and is adamant that a oral contrast CT scan needs to be performed before disposition can be made. (Of note the patient had bowel movement tonight prior to EMS being called). 11/25/19 02:[address] scan is ordered, I have spoken to Dr. Cowan regarding follow-up and disposition of the report if done prior to that end of his shift. He is in agreement with following up the results. (JORDI ELLISON) - Vital Signs Vital signs: Temp Pulse Resp BP Pulse Ox 97.6 F 77 21 H 161/88 H 91 L 11/24/19 23:02 11/24/19 23:02 11/25/19 02:01 11/25/19 01:00 11/25/19 02:01 - Laboratory Laboratory results interpreted by me: 11/24/19 11/24/19 23:10 23:10 Hgb 11.6 L Hct 34.8 L RDW 16.8 H Plt Count 521 H Band Neutrophils % 1 L Sodium 124.7 L Potassium 5.5 H Chloride 90 L Glucose 130 H Critical Care Note <RUBEN COWAN JR - Last Filed: 11/25/19 05:35> - Critical Care Note Comments: I spoke with Dr. Scott after speaking with Dr. Iniguez. Dr. Iniguez advised she should be transferred to where she is being treated. I spoke with the patient and because of nausea vomiting and abdominal pain she advises she is treated by Dr. Nam. Dr. Scott advises that the patient be admitted for fluid rehydration. CT scan revealed possible SBO but patient has had a bowel movement. Dr. Uzair Benavides advised telemetry bed for this patient admission. I spoke with the patient and she is still full code. Abdomen was not distended but was tender and patient has a right upper quadrant horizontal status post gallbladder old surgical scar and hysterectomy scar. (RUBEN COWAN JR) Discharge <JORDI ELLISON - Last Filed: 11/25/19 02:09> - Discharge Admitting Provider: Kennedy (Hospitalist) Unit Admitted: Telemetry <RUBEN COWAN JR - Last Filed: 11/25/19 05:35> - Discharge Clinical Impression: Carcinoma of ovary, stage 4, Nausea and vomiting, Abdominal pain Condition: Fair Disposition: ADMITTED INPATIENT Referrals: KELSEY NAM MD [Primary Care Provider] - Follow up as needed
[2019-11-24 23:58] LABS: ABSOLUTE LYMPHOCYTES# (MANUAL) 0.8 10^3/uL (0.5-4.7); ABSOLUTE MONOCYTES # (MANUAL) 0.2 10^3/uL (0.1-1.4); ANISOCYTOSIS 1+; BAND NEUTROPHILS % (MANUAL) 1 % (3-5); BASOPHILS % (MANUAL) 1 % (0-2); EOSINOPHILS % (MANUAL) 2 % (0-6); LYMPHOCYTES % (MANUAL) 18 % (13-45); MONOCYTES % (MANUAL) 5 % (3-13); PLATELET COMMENT ADEQUATE; POLYCHROMASIA 1+; SEGMENTED NEUTROPHILS % (MAN) 73 % (42-78); TOTAL CELLS COUNTED 100
[2019-11-25] MEDS ORDERED: MORPHINE SULFATE 10 MG/ML INJ IV ONE (00:01)
[2019-11-25 00:02] LABS: ALBUMIN 4.3 g/dL (3.5-5.0); ALKALINE PHOSPHATASE 122 U/L (38-126); ANION GAP 10 (5-19); ASPARTATE AMINO TRANSFERASE 34 U/L (14-36); BILIRUBIN,TOTAL 0.5 mg/dL (0.2-1.3); BLOOD UREA NITROGEN 10 mg/dL (7-20); CALCIUM 10.1 mg/dL (8.4-10.2); CARBON DIOXIDE 25 mmol/L (22-30); CHLORIDE 90 mmol/L (98-107); GLUCOSE 130 mg/dL (75-110); POTASSIUM 5.5 mmol/L (3.6-5.0); TOTAL PROTEIN 7.8 g/dL (6.3-8.2)
--- NOTE | 2019-11-25 01:30 | RADIOLOGY REPORT (SQ) ---
EXAM DESCRIPTION: CT ABDOMEN PELVIS WITH IV CONTRAST COMPLETED DATE/TME: 11/24/2019 23:43 CLINICAL HISTORY: 64 years, Female, diffuse abdominal pain. creat 0.86 COMPARISON: February 19, 2019 TECHNIQUE: Images stored on PACS. All CT scanners at this facility use dose modulation, iterative reconstruction, and/or weight based dosing when appropriate to reduce radiation dose to as low as reasonably achievable (ALARA). [facility]: Dose Right [facility]: CareDose [facility]: Dose Right [facility]: Teradose 4D [facility]: [employer] LIMITATIONS: None. FINDINGS: The lung bases are grossly clear. The heart is prominent with coronary calcification. No pleural pericardial fluid. The liver is homogeneous. Gallbladder surgically absent. Prominence of the biliary tree likely due to postsurgical state. The pancreas is homogeneous. The spleen adrenals and kidneys are unremarkable. Dilated loops of small bowel are identified. These are seen proximally. Distal small bowel is of normal caliber. Colon is of normal caliber.. Bowel is unopacified with oral contrast. Postsurgical change is seen. The appendix is not identified. Pelvic contents are unremarkable. The visualized bones are within normal limits for age. Comparison with prior demonstrates a dilated small bowel to be adverse change IMPRESSION: Mildly dilated loops of proximal small bowel. The possibility of a partial or early small bowel obstruction is raised. TECHNICAL DOCUMENTATION: Quality ID # [id number]: Final reports with documentation of one or more dose reduction techniques (e.g., Automated exposure control, adjustment of the mA and/or kV according to patient size, use of iterative reconstruction technique) copyright 2010 [employer]- All Rights Reserved
[2019-11-25] MEDS ORDERED: PROCHLORPERAZINE EDISYLATE INJ 10 MG/2 ML VIAL IV ONE (04:54)
[2019-11-25] MEDS ORDERED: INSULIN REG, HUMAN 100 UNIT/ML 3 ML VIAL (PYX) IV ONE (05:10)
[2019-11-25] MEDS ORDERED: DEXTROSE 50%-WATER 25 GM/50 ML DISP.SYRIN IV ONE (05:10)
[2019-11-25] MEDS ORDERED: DIAZEPAM INJ 10 MG/2 ML DISP.SYRIN IV ONE (05:47)
[2019-11-25] MEDS ORDERED: IPRATROPIUM/ALBUTEROL 0.5-2.5 MG/3 ML AMPUL NEB PRN (05:47)
[2019-11-25] MEDS ORDERED: MAG HYDROX/AL HYDROX/SIMETH SUSP 30 ML UDCUP PO PRN (05:47)
[2019-11-25] MEDS ORDERED: LACTULOSE SYRUP 20 GM/30 ML UDCUP PR ONE (05:47)
[2019-11-25] MEDS ORDERED: ACETAMINOPHEN 650 MG SUPP.RECT PR PRN (05:47)
--- NOTE | 2019-11-25 06:51 | PDOC H&P ---
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 Patient presents with 12 hours of abdominal pain with nausea without vomiting prompting [facility] where she is found to have questionable early partial bowel obstruction by CT and significant fecal retention. She receives several IV antiemetics and referred to the hospitalist for admission. She is also found to have hyponatremia, hyperkalemia. On exam there is minimal abdominal distention and bowel sounds are present. Patient admits significant constipation. Past Medical History Cardiac Medical History: Reports: Hypertension Denies: Coronary Artery Disease, Myocardial Infarction Pulmonary Medical History: Reports: Bronchitis, Chronic Obstructive Pulmonary Disease (COPD) Denies: Asthma, Pneumonia Neurological Medical History: Denies: Seizures Endocrine Medical History: Denies: Diabetes Mellitus Type 1, Diabetes Mellitus Type 2, Hyperthyroidism, Hypothyroidism Malignancy Medical History: Reports: Ovarian Cancer - stage IV per patient, unsure of metastasis GI Medical History: Denies: Cirrhosis, Hepatitis, Hiatal Hernia Musculoskeltal Medical History: Reports: Arthritis - GENERALIZED Denies: Gout Skin Medical History: Denies: Eczema, Psoriasis Hematology: Denies: Anemia, Sickle Cell Disease Past Surgical History Past Surgical History: Reports: Cholecystectomy, Hysterectomy, Other - Bilateral salpingectomy and oophorectomy. Denies: Amputation - GLASSES, Mastectomy, Pacemaker Social History Information Source: Patient, [facility] Records Smoking Status: Current Every Day Smoker Frequency of Alcohol Use: None Hx Recreational Drug Use: No Drugs: None Hx Prescription Drug Abuse: No - Advance Directive Resuscitation Status: Full Code Family History Family History: CAD, Hypertension, Malignancy, Other - Kidney stones, renal vascular disease. denies: CVA, DM Parental Family History Reviewed: Yes Children Family History Reviewed: Yes Sibling(s) Family History Reviewed.: Yes Medication/Allergy Home Medications: Albuterol Sulfate [Ventolin Hfa 8 gm Mdi (1 Mdi/ER Disp)] 2 puff IH Q6HP PRN 02/26/19 Alprazolam [Xanax 0.5 mg Tablet] 0.5 mg PO Q8HP PRN 02/26/19 Lisinopril [Prinivil 40 mg Tablet] 40 mg PO QAM 02/26/19 Umeclidinium Brm/Vilanterol Tr [Anoro Ellipta 62.5-25 Mcg INH] 1 puff IH DAILY 02/26/19 Spironolactone [Aldactone 100 mg Tablet] 1 tab PO DAILY 06/20/19 Aspirin [Aspirin 81 mg Chewable Tablet] 81 mg PO DAILY 06/21/19 Famotidine [Pepcid AC] 20 mg PO DAILY 06/21/19 Nebulizer [Nebulizer Machine] 2.5 ml PO PRN PRN 06/21/19 Allergies/Adverse Reactions: cephalexin monohydrate [From Keflex] Allergy (Mild, Verified 11/24/19 23:16) rash Tetanus Vaccines and Toxoid [Tetanus] Allergy (Mild, Verified 11/24/19 23:16) ARM SWELLING duloxetine HCl [From Cymbalta] Allergy (Verified 11/24/19 23:16) Vomiting oxycodone HCl [From Percocet] Allergy (Verified 11/24/19 23:16) Vomiting tramadol HCl [From Ultracet] Allergy (Verified 11/24/19 23:16) Vomiting azithromycin [From Zithromax] Adverse Reaction (Intermediate, Verified 11/24/19 23:16) N/V Review of Systems Constitutional: ABSENT: chills, fever(s), headache(s), weight gain, weight loss Eyes: ABSENT: visual disturbances Ears: ABSENT: hearing changes Cardiovascular: ABSENT: chest pain, dyspnea on exertion, edema, orthropnea, palpitations Respiratory: ABSENT: cough, hemoptysis Gastrointestinal: PRESENT: constipation. ABSENT: abdominal pain, diarrhea, hematemesis, hematochezia, nausea, vomiting Genitourinary: ABSENT: dysuria, hematuria Musculoskeletal: ABSENT: joint swelling Integumentary: ABSENT: rash, wounds Neurological: ABSENT: abnormal gait, abnormal speech, confusion, dizziness, focal weakness, syncope Psychiatric: ABSENT: anxiety, depression, homidical ideation, suicidal ideation Endocrine: ABSENT: cold intolerance, heat intolerance, polydipsia, polyuria Hematologic/Lymphatic: ABSENT: easy bleeding, easy bruising Physical Exam Vital Signs: Temp Pulse Resp BP Pulse Ox 98.7 F 77 17 166/74 H 95 11/25/19 06:43 11/24/19 23:02 11/25/19 06:00 11/25/19 06:00 11/25/19 06:00 Intake & Output 11/23/19 11/24/19 11/25/19 11:59 11:59 11:59 Intake Total 1000 Balance 1000 Weight 60.781 kg General appearance: PRESENT: cooperative, mild distress, thin, well-developed Head exam: PRESENT: atraumatic, normocephalic Eye exam: PRESENT: conjunctiva pink, EOMI, PERRLA. ABSENT: scleral icterus Ear exam: PRESENT: normal external ear exam Mouth exam: PRESENT: moist, tongue midline Neck exam: ABSENT: carotid bruit, JVD, lymphadenopathy, thyromegaly Respiratory exam: PRESENT: clear to auscultation krissy. ABSENT: rales, rhonchi, wheezes Cardiovascular exam: PRESENT: +S1, +S2, systolic murmur Pulses: PRESENT: normal dorsalis pedis pul GI/Abdominal exam: PRESENT: diminished bowel sounds, tenderness. ABSENT: distended, firm, guarding Rectal exam: PRESENT: deferred Extremities exam: PRESENT: full ROM. ABSENT: calf tenderness, clubbing, pedal edema Neurological exam: PRESENT: alert, awake, oriented to person, oriented to place, oriented to time, oriented to situation, CN II-XII grossly intact. ABSENT: shalini r sensory deficit Psychiatric exam: PRESENT: appropriate affect, normal mood. ABSENT: homicidal ideation, suicidal ideation Results Laboratory Results: 11/24/19 23:10 11/24/19 23:10 11/24/19 11/24/19 23:10 23:10 WBC 4.5 RBC 3.78 Hgb 11.6 L Hct 34.8 L MCV 92 MCH 30.6 MCHC 33.2 RDW 16.8 H Plt Count 521 H Seg Neutrophils % Not Reportable Sodium 124.7 L Potassium 5.5 H Chloride 90 L Carbon Dioxide 25 Anion Gap 10 BUN 10 Creatinine 0.86 Est GFR ( Amer) > 60 Glucose 130 H Calcium 10.1 Total Bilirubin 0.5 AST 34 Alkaline Phosphatase 122 Total Protein 7.8 Albumin 4.3 Lipase 67.6 Impressions: Abdomen/Pelvis CT 11/24/19 23:43 IMPRESSION: Mildly dilated loops of proximal small bowel. The possibility of a partial or early small bowel obstruction is raised. TECHNICAL DOCUMENTATION: Quality ID # 436: Final reports with documentation of one or more dose reduction techniques (e.g., Automated exposure control, adjustment of the mA and/or kV according to patient size, use of iterative reconstruction technique) copyright 2011 [employer]- All Rights Reserved Assessment and Plan - Diagnosis (1) Small bowel obstruction Is this a current diagnosis for this admission?: Yes Plan: Appears secondary to fecal impaction. Trial enema, symptomatic management (2) Fecal impaction Is this a current diagnosis for this admission?: Yes Plan: N.p.o., lactulose enema, bowel regiment (3) Carcinoma of ovary, stage 4 Qualifiers: Is this a current diagnosis for this admission?: Yes Plan: Supportive care, consider oncology consult (4) Acute exacerbation of chronic obstructive pulmonary disease (COPD) Is this a current diagnosis for this admission?: Yes Plan: Supplemental oxygen, incentive spirometry (5) Hyponatremia Is this a current diagnosis for this admission?: Yes Plan: Trial normal saline, follow-up chemistry (6) Tobacco use disorder, severe, dependence Is this a current diagnosis for this admission?: Yes Plan: Patient with terminal illness not interested in cessation, declines nicotine replacement options. - Time Time Spent with patient: 25-34 minutes - Inpatient Certification Medical Necessity: Need Close Monitoring Due to Risk of Patient Decompensation
[2019-11-25] MEDS: HEPARIN SOD (PORCINE) 5,000 UNIT/ML 1 ML VIAL SUBCUT SCH ×3 (08:23→21:48)
[2019-11-25] MEDS: NORMAL SALINE 1000 ML 1,000 ML IV PRN ×3 (08:23→19:51)
[2019-11-25] MEDS ORDERED: PROMETHAZINE HCL INJ 25 MG/1 ML VIAL IV PRN (10:07)
[2019-11-25] MEDS ORDERED: KETOROLAC TROMETHAMINE INJ/PF 30 MG/1 ML SDV IV PRN ×2 (10:07→10:32)
[2019-11-25] MEDS: ONDANSETRON HCL INJ/PF 4 MG/2 ML SDV IV PRN ×2 (11:20→16:29)
[2019-11-25] MEDS ORDERED: ALPRAZOLAM 0.5 MG TABLET PO PRN (14:02)
--- NOTE | 2019-11-25 14:06 | Progress Note ---
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 Overnight events, vital signs, laboratory results, imaging, and orders reviewed. Agree with the plan of care as established by the previous provider. Additionally, have added antiemetics, PPI, and resumed the patient's home dose Anoro.
[2019-11-25 15:41] LABS: ANION GAP 7 (5-19); BLOOD UREA NITROGEN 13 mg/dL (7-20); CALCIUM 9.3 mg/dL (8.4-10.2); CARBON DIOXIDE 25 mmol/L (22-30); CHLORIDE 95 mmol/L (98-107); GLUCOSE 81 mg/dL (75-110); POTASSIUM 5.3 mmol/L (3.6-5.0)
[2019-11-25] MEDS ORDERED: NORMAL SALINE 1000 ML 1,000 ML IV PRN (15:54)
--- NOTE | 2019-11-25 17:41 | RADIOLOGY REPORT (SQ) ---
EXAM DESCRIPTION: CT ABD/PELVIS ORAL ONLY COMPLETED DATE/TIME: 11/25/2019 4:41 pm REASON FOR STUDY: CONCERN FOR SBO . History of ovarian cancer. Diffuse abdominal pain. COMPARISON: CT abdomen and pelvis 11/25/2019, 10/11/2019. CT chest 08/16/2019. TECHNIQUE: CT scan of the abdomen and pelvis performed with oral contrast. Images reviewed with lung , soft tissue, and bone windows. Reconstructed coronal and sagittal MPR images reviewed. All images s tored on PACS. All CT scanners at this facility use dose modulation, iterative reconstruction, and/or weight based d osing when appropriate to reduce radiation dose to as low as reasonably achievable (ALARA). [facility]: Dose Right [facility]: CareDose [facility]: Dose Right [facility]: Teradose 4D [facility]: [employer] RADIATION DOSE: CT Rad equipment meets quality standard of care and radiation dose reduction techniq ues were employed. CTDIvol: 6.2 mGy. DLP: 309 mGy-cm.mGy. LIMITATIONS: None. FINDINGS: LOWER CHEST: No consolidation or pleural effusion. Partially visualized 8 mm nodule at t he right lower lobe. NON-CONTRASTED LIVER, SPLEEN, ADRENALS: Evaluation limited by lack of IV contrast. No identified sign ificant masses. PANCREAS: No peripancreatic inflammatory changes. GALLBLADDER: Surgically absent. RIGHT KIDNEY AND URETER: Assessment for masses limited by lack of IV contrast. Contrast excretion fr om prior CT abdomen and pelvis. No hydronephrosis or hydroureter. LEFT KIDNEY AND URETER: Assessment for masses limited by lack of IV contrast. Contrast excretion fro m prior CT abdomen and pelvis. No hydronephrosis or hydroureter. AORTA AND RETROPERITONEUM: Atherosclerotic calcifications at the abdominal aorta. No abdominal aorti c aneurysm. No retroperitoneal hemorrhage. Mildly enlarged retroperitoneal lymph nodes measuring up to 10 mm in short axis. BOWEL AND PERITONEAL CAVITY: Oral contrast is noted within the stomach and small bowel loops. There are multiple dilated small bowel loops with air-fluid levels. Collapsed loops of small bowel are not ed at the right lower quadrant. Interval development of small amount of ascites. No free air. APPENDIX: Not visualized. PELVIS, BLADDER, AND ABDOMINAL WALL:The urinary bladder is decompressed containing excreted contrast from prior CT abdomen and pelvis with intravenous contrast. The uterus is surgically absent. BONES: Degenerative changes at the spine. IMPRESSION: 1. Multiple dilated small bowel loops with air-fluid levels, concerning for small bowel obstruction, possible transition point at the right lower quadrant. 2. Interval development of small amount of abdominal ascites. 3. Mild retroperitoneal adenopathy. 4. Partially visualized 8 mm nodule at the right lower lobe. This can be better evaluated with dedic ated CT chest. COMMENT: Quality ID # 436: Final reports with documentation of one or more dose reduction techniques (e.g., Automated exposure control, adjustment of the mA and/or kV according to patient size, use of iterative reconstruction technique) TECHNICAL DOCUMENTATION: JOB ID: [id number] 2010 [employer]- All Rights Reserved Reading location - IP/workstation name: [email or web address]
--- NOTE | 2019-11-25 20:59 | PDOC CONSULTATION ---
Consultation Consult Date: 11/25/19 Provider Consulted: GARRETT WILKINSON Consult reason:: Small bowel obstruction, obstipation History of Present Illness Admission Date/PCP: 11/25/19 05:40 KELSEY TAVERA MD Patient complains of: Nominal pain and distention with obstipation History of Present Illness: SHAWANDA ZHANG is a 64 year old female with a history of ovarian cancer, status post laparotomy transabdominal hysterectomy and bilateral salpingo-oophorectomy for stage IV ovarian cancer diagnosed 2 years ago. The patient reports to be doing well for the past 2 years. However, 2 days ago she complained abdominal pain distention and obstipation. She presented of both symptoms to the emergency room and CT scan abdomen pelvis was done with IV and oral contrast rev ealing possible small bowel mechanical obstruction due to a transition point with proximally dilated loops of small bowel as well as a distally decompressed loops. Currently, the patient denies flatus or stools. She had a bowel movement today for administration of an enema. She denies the abuse of narcotics. Past Medical History Cardiac Medical History: Reports: Hypertension Denies: Coronary Artery Disease, Myocardial Infarction Pulmonary Medical History: Reports: Bronchitis, Chronic Obstructive Pulmonary Disease (COPD) Denies: Asthma, Pneumonia Neurological Medical History: Denies: Seizures Endocrine Medical History: Denies: Diabetes Mellitus Type 1, Diabetes Mellitus Type 2, Hyperthyroidism, Hypothyroidism Malignancy Medical History: Reports: Ovarian Cancer - stage IV per patient, unsure of metastasis GI Medical History: Denies: Cirrhosis, Hepatitis, Hiatal Hernia Musculoskeltal Medical History: Reports: Arthritis - GENERALIZED Denies: Gout Skin Medical History: Denies: Eczema, Psoriasis Hematology: Denies: Anemia, Sickle Cell Disease Past Surgical History Past Surgical History: Reports: Cholecystectomy, Hysterectomy, Other - Bilateral salpingectomy and oophorectomy. Denies: Amputation - GLASSES, Mastectomy, Pacemaker Social History Smoking Status: Current Every Day Smoker Frequency of Alcohol Use: None Hx Recreational Drug Use: No Drugs: None Hx Prescription Drug Abuse: No - Advance Directive Resuscitation Status: Full Code Family History Family History: CAD, Hypertension, Malignancy, Other - Kidney stones, renal vascular disease. denies: CVA, DM Parental Family History Reviewed: No Children Family History Reviewed: No Sibling(s) Family History Reviewed.: No Medication/Allergy Home Medications: Albuterol Sulfate [Ventolin Hfa 8 gm Mdi (1 Mdi/ER Disp)] 2 puff IH Q6HP PRN 02/26/19 Alprazolam [Xanax 0.5 mg Tablet] 0.5 mg PO Q8HP PRN 02/26/19 Lisinopril [Prinivil 40 mg Tablet] 40 mg PO QAM 02/26/19 Umeclidinium Brm/Vilanterol Tr [Anoro Ellipta 62.5-25 Mcg INH] 1 puff IH DAILY 02/26/19 Aspirin [Aspirin 81 mg Chewable Tablet] 81 mg PO DAILY 06/21/19 Famotidine [Pepcid AC] 20 mg PO DAILY 06/21/19 Allergies/Adverse Reactions: cephalexin monohydrate [From Keflex] Allergy (Mild, Verified 11/24/19 23:16) rash Tetanus Vaccines and Toxoid [Tetanus] Allergy (Mild, Verified 11/24/19 23:16) ARM SWELLING duloxetine HCl [From Cymbalta] Allergy (Verified 11/24/19 23:16) Vomiting oxycodone HCl [From Percocet] Allergy (Verified 11/24/19 23:16) Vomiting tramadol HCl [From Ultracet] Allergy (Verified 11/24/19 23:16) Vomiting azithromycin [From Zithromax] Adverse Reaction (Intermediate, Verified 11/24/19 23:16) N/V Physical Exam Vital Signs: Temp Pulse Resp BP Pulse Ox 98.3 F 93 16 152/66 H 97 11/25/19 20:11 11/25/19 20:11 11/25/19 20:11 11/25/19 20:11 11/25/19 20:11 Intake & Output 11/24/19 11/25/19 11/26/19 06:59 06:59 06:59 Intake Total 1000 2000 Output Total 900 Balance 1000 1100 Weight 60.781 kg 59.1 kg General appearance: PRESENT: mild distress Head exam: PRESENT: atraumatic Eye exam: PRESENT: EOMI Mouth exam: PRESENT: dry mucosa, neck supple Neck exam: PRESENT: full ROM Cardiovascular exam: PRESENT: RRR GI/Abdominal exam: PRESENT: distended, normal bowel sounds, soft Rectal exam: PRESENT: deferred Extremities exam: PRESENT: full ROM Musculoskeletal exam: PRESENT: full ROM Neurological exam: PRESENT: alert, awake, CN II-XII grossly intact Psychiatric exam: PRESENT: anxious Skin exam: PRESENT: warm Results Laboratory Results: 11/24/19 23:10 11/25/19 14:55 11/24/19 11/24/19 11/25/19 23:10 23:10 14:55 WBC 4.5 RBC 3.78 Hgb 11.6 L Hct 34.8 L MCV 92 MCH 30.6 MCHC 33.2 RDW 16.8 H Plt Count 521 H Seg Neutrophils % Not Reportable Sodium 124.7 L 127.3 L Potassium 5.5 H 5.3 H Chloride 90 L 95 L Carbon Dioxide 25 25 Anion Gap 10 7 BUN 10 13 Creatinine 0.86 1.18 Est GFR ( Amer) > 60 55 L Glucose 130 H 81 Calcium 10.1 9.3 Total Bilirubin 0.5 AST 34 Alkaline Phosphatase 122 Total Protein 7.8 Albumin 4.3 Lipase 67.6 Impressions: Abdomen/Pelvis CT 11/25/19 04:39 IMPRESSION: 1. Multiple dilated small bowel loops with air-fluid levels, concerning for small bowel obstruction, possible transition point at the right lower quadrant. 2. Interval development of small amount of abdominal ascites. 3. Mild retroperitoneal adenopathy. 4. Partially visualized 8 mm nodule at the right lower lobe. This can be better evaluated with dedicated CT chest. Assessment & Plan - Diagnosis (1) Carcinoma of ovary, stage 4 Qualifiers: Is this a current diagnosis for this admission?: Yes (2) Small bowel obstruction Is this a current diagnosis for this admission?: Yes - Plan Summary Plan Summary: Assessment: Ovarian cancer stage IV History of obstipation, abdominal pain, and increased abdominal girth for the past [address] scan abdomen pelvis with oral contrast reveals a transition point in the small bowel as per mechanical small bowel obstruction Plan: N.p.o. IV fluids NG tube to low continuous suction 3 view x-ray of the abdomen tomorrow to follow the progress of the oral contrast given during the CT scan In my opinion this patient would benefit from conservative management without rushing her into surgery; any aggressive intervention in this patient could not be rewarding because of possibility of intraperitoneal metastatic lesions which might not be amenable of resection and resolution of the current small bowel obstruction
--- NOTE | 2019-11-25 21:02 | RADIOLOGY REPORT (SQ) ---
EXAM DESCRIPTION: XR ABDOMEN 1 VIEW (KUB) COMPLETED DATE/TME: 11/25/2019 20:19 CLINICAL HISTORY: 64 years, Female, to check NG tube placement COMPARISON: None. NUMBER OF VIEWS: Single TECHNIQUE: Centered on the diaphragm LIMITATIONS: None. FINDINGS: Nasogastric tube projects over the stomach. Nonspecific gas pattern. No obvious free air IMPRESSION: Satisfactory placement of nasogastric/orogastric tube copyright 2010 [employer]- All Rights Reserved
[2019-11-25] MEDS ORDERED: PHENOL/SODIUM PHENOLATE 100 SPRAY/177 ML BOTTLE PO PRN (21:15)
[2019-11-25] MEDS ORDERED: PHENOL/SODIUM PHENOLATE 100 SPRAY/177 ML BOTTLE ONE (21:20)
[2019-11-25] MEDS ORDERED: DEXTROSE 50%-WATER 25 GM/50 ML DISP.SYRIN IV PRN ×2 (23:56)
[2019-11-25] MEDS ORDERED: DEXTROSE 40% GEL 15 GM TUBE PO PRN ×2 (23:56)
[2019-11-25] MEDS ORDERED: GLUCAGON,HUMAN RECOMB 1 MG INJ IM PRN (23:56)
[2019-11-26] MEDS: HEPARIN SOD (PORCINE) 5,000 UNIT/ML 1 ML VIAL SUBCUT SCH ×3 (05:24→22:00)
[2019-11-26 05:46] LABS: ANION GAP 10 (5-19); BLOOD UREA NITROGEN 18 mg/dL (7-20); CARBON DIOXIDE 25 mmol/L (22-30); CHLORIDE 97 mmol/L (98-107); POTASSIUM 5.1 mmol/L (3.6-5.0)
[2019-11-26 06:03] LABS: GLUCOSE 62 mg/dL (75-110)
[2019-11-26 06:06] LABS: CALCIUM 8.6 mg/dL (8.4-10.2)
--- NOTE | 2019-11-26 08:14 | PDOC CONSULTATION ---
Consultation Consult Date: 11/26/19 Attending physician:: MAGALIE SCHMIDT Provider Consulted: KELSEY TAVERA Consult reason:: Nausea vomiting partial small bowel obstruction in the setting of stage IV ovarian cancer History of Present Illness Admission Date/PCP: 11/25/19 05:40 KELSEY TAVERA MD Patient complains of: Nausea vomiting abdominal distention History of Present Illness: SHAWANDA ZHANG is a 64 year old female with known history of stage IV ovarian cancer, she has not had this diagnosis for about 2 years, she has been doing well recently on chemotherapy, she was most recently on Gemzar. Received the last dose of that about 4 weeks ago. She had imaging done at the beginning of October indicating overall stable disease in the abdomen. Ca 125 was also stable. She presents with about 48 hours of increasing nausea and vomiting, ultimately the abdominal cramps became severe and she ended up coming to the ED. Here, oral contrasted CT of the abdomen pelvis indicated small bowel obstruction with possible transition point. Of note, the patient did actually have a bowel movement when EMS came to get her to bring her here. She also passed some gas this morning. And she had some stool with an enema yesterday. Past Medical History Cardiac Medical History: Reports: Hypertension Denies: Coronary Artery Disease, Myocardial Infarction Pulmonary Medical History: Reports: Bronchitis, Chronic Obstructive Pulmonary Disease (COPD) Denies: Asthma, Pneumonia Neurological Medical History: Denies: Seizures Endocrine Medical History: Denies: Diabetes Mellitus Type 1, Diabetes Mellitus Type 2, Hyperthyroidism, Hypothyroidism Malignancy Medical History: Reports: Ovarian Cancer - stage IV per patient, unsure of metastasis GI Medical History: Denies: Cirrhosis, Hepatitis, Hiatal Hernia Musculoskeltal Medical History: Reports: Arthritis - GENERALIZED Denies: Gout Skin Medical History: Denies: Eczema, Psoriasis Psychiatric Medical History: Reports: Depression Hematology: Denies: Anemia, Sickle Cell Disease Past Surgical History Past Surgical History: Reports: Cholecystectomy, Hysterectomy, Other - Bilateral salpingectomy and oophorectomy. Denies: Amputation - GLASSES, Mastectomy, Pacemaker Social History Information Source: Patient Smoking Status: Current Every Day Smoker Cigarettes Packs Per Day: 1 Electronic Cigarette use?: No Cigars Per Day: 0 Pipes Per Day: 0 Number of Years Smokin Last Time Smoked: 11/24/2019 Frequency of Alcohol Use: None Hx Recreational Drug Use: No Drugs: None Hx Prescription Drug Abuse: No - Advance Directive Resuscitation Status: Full Code Family History Family History: CAD, Hypertension, Malignancy, Other - Kidney stones, renal vascular disease. denies: CVA, DM Parental Family History Reviewed: Yes Children Family History Reviewed: Yes Sibling(s) Family History Reviewed.: Yes Medication/Allergy Home Medications: Albuterol Sulfate [Ventolin Hfa 8 gm Mdi (1 Mdi/ER Disp)] 2 puff IH Q6HP PRN 02/26/19 Alprazolam [Xanax 0.5 mg Tablet] 0.5 mg PO Q8HP PRN 02/26/19 Lisinopril [Prinivil 40 mg Tablet] 40 mg PO QAM 02/26/19 Umeclidinium Brm/Vilanterol Tr [Anoro Ellipta 62.5-25 Mcg INH] 1 puff IH DAILY 02/26/19 Aspirin [Aspirin 81 mg Chewable Tablet] 81 mg PO DAILY 06/21/19 Famotidine [Pepcid AC] 20 mg PO DAILY 06/21/19 Allergies/Adverse Reactions: cephalexin monohydrate [From Keflex] Allergy (Mild, Verified 11/24/19 23:16) rash Tetanus Vaccines and Toxoid [Tetanus] Allergy (Mild, Verified 11/24/19 23:16) ARM SWELLING duloxetine HCl [From Cymbalta] Allergy (Verified 11/24/19 23:16) Vomiting oxycodone HCl [From Percocet] Allergy (Verified 11/24/19 23:16) Vomiting tramadol HCl [From Ultracet] Allergy (Verified 11/24/19 23:16) Vomiting azithromycin [From Zithromax] Adverse Reaction (Intermediate, Verified 11/24/19 23:16) N/V Review of Systems Constitutional: ABSENT: chills, fever(s), headache(s), weight gain, weight loss Eyes: ABSENT: visual disturbances Ears: ABSENT: hearing changes Cardiovascular: ABSENT: chest pain, dyspnea on exertion, edema, orthropnea, palpitations Respiratory: ABSENT: cough, hemoptysis Gastrointestinal: ABSENT: abdominal pain, constipation, diarrhea, hematemesis, hematochezia, nausea, vomiting Genitourinary: ABSENT: dysuria, hematuria Musculoskeletal: ABSENT: joint swelling Integumentary: ABSENT: rash, wounds Neurological: ABSENT: abnormal gait, abnormal speech, confusion, dizziness, focal weakness, syncope Psychiatric: ABSENT: anxiety, depression, homidical ideation, suicidal ideation Endocrine: ABSENT: cold intolerance, heat intolerance, polydipsia, polyuria Hematologic/Lymphatic: ABSENT: easy bleeding, easy bruising Physical Exam Vital Signs: Temp Pulse Resp BP Pulse Ox 97.4 F 89 16 135/67 H 91 L 11/26/19 01:10 11/26/19 02:00 11/26/19 01:10 11/26/19 01:10 11/26/19 01:10 Intake & Output 11/25/19 11/26/19 11/27/19 06:59 06:59 06:59 Intake Total 1000 3000 Output Total 1975 Balance 1000 1025 Weight 60.781 kg 59.1 kg General appearance: PRESENT: no acute distress, well-developed, well-nourished Head exam: PRESENT: atraumatic, normocephalic Eye exam: PRESENT: conjunctiva pink, EOMI, PERRLA. ABSENT: scleral icterus Ear exam: PRESENT: normal external ear exam Mouth exam: PRESENT: moist, tongue midline Neck exam: ABSENT: carotid bruit, JVD, lymphadenopathy, thyromegaly Respiratory exam: PRESENT: clear to auscultation krissy. ABSENT: rales, rhonchi, wheezes Cardiovascular exam: PRESENT: RRR. ABSENT: diastolic murmur, rubs, systolic murmur Pulses: PRESENT: normal dorsalis pedis pul Vascular exam: PRESENT: normal capillary refill GI/Abdominal exam: PRESENT: normal bowel sounds, soft. ABSENT: distended, guarding, mass, organolmegaly, rebound, tenderness Rectal exam: PRESENT: deferred Extremities exam: PRESENT: full ROM. ABSENT: calf tenderness, clubbing, pedal edema Neurological exam: PRESENT: alert, awake, oriented to person, oriented to place, oriented to time, oriented to situation, CN II-XII grossly intact. ABSENT: motor sensory deficit Psychiatric exam: PRESENT: appropriate affect, normal mood. ABSENT: homicidal ideation, suicidal ideation Skin exam: PRESENT: dry, intact, warm. ABSENT: cyanosis, rash Results Laboratory Results: 11/24/19 23:10 11/26/19 04:36 11/25/19 11/26/19 14:55 04:36 Sodium 127.3 L 131.8 L Potassium 5.3 H 5.1 H Chloride 95 L 97 L Carbon Dioxide 25 25 Anion Gap 7 10 BUN 13 18 Creatinine 1.18 1.05 Est GFR ( Amer) 55 L > 60 Glucose 81 62 L Calcium 9.3 8.6 Impressions: Abdomen/Pelvis CT 11/25/19 04:39 IMPRESSION: 1. Multiple dilated small bowel loops with air-fluid levels, concerning for small bowel obstruction, possible transition point at the right lower quadrant. 2. Interval development of small amount of abdominal ascites. 3. Mild retroperitoneal adenopathy. 4. Partially visualized 8 mm nodule at the right lower lobe. This can be better evaluated with dedicated CT chest. KUB X-Ray 11/25/19 20:19 IMPRESSION: Satisfactory placement of nasogastric/orogastric tube copyright 2011 [employer]- All Rights Reserved Status: Image reviewed by me Assessment & Plan - Diagnosis (1) Small bowel obstruction Is this a current diagnosis for this admission?: Yes Plan: Agree with conservative management for now, NG tube placed, await bowel recovery. Patient will continue with serial KUBs as needed per surgical and hospitalist team. Ultimately, if patient requires surgical intervention, we should get the opinion of Dr. Ileana Calero of [facility] in [place], she operated on her about a year ago with optimal surgical debulking post neoadjuvant chemotherapy. (2) Carcinoma of ovary, stage 4 Qualifiers: Laterality: right Is this a current diagnosis for this admission?: Yes Plan: Patient had good response with recent therapy, the next step was transitioning to an oral maintenance medication, she had not yet started on that. Hopefully, the bowel obstruction will resolve medically, and she will be able to start that medication when possible. - Time Time Spent: Greater than 70 Minutes
--- NOTE | 2019-11-26 08:51 | PDOC PROGRESS REPORT ---
Subjective Progress Note for:: 11/26/19 Subjective:: Patient comfortable, denies abdominal pain, and reports flatus this morning, no stools Reason For Visit: SBO STAGE 4 OVARIAN CA Physical Exam Vital Signs: Temp Pulse Resp BP Pulse Ox 97.4 F 82 18 135/67 H 91 L 11/26/19 01:10 11/26/19 08:00 11/26/19 08:00 11/26/19 01:10 11/26/19 08:00 Intake & Output 11/25/19 11/26/19 11/27/19 06:59 06:59 06:59 Intake Total 1000 3000 Output Total 1975 Balance 1000 1025 Weight 60.781 kg 59.1 kg General appearance: PRESENT: no acute distress Respiratory exam: PRESENT: clear to auscultation krissy Cardiovascular exam: PRESENT: RRR, systolic murmur GI/Abdominal exam: PRESENT: distended, hypoactive bowel sounds, soft, other - No peritoneal signs, masses appreciated Results Laboratory Results: 11/24/19 23:10 11/26/19 04:36 11/25/19 11/26/19 14:55 04:36 Sodium 127.3 L 131.8 L Potassium 5.3 H 5.1 H Chloride 95 L 97 L Carbon Dioxide 25 25 Anion Gap 7 10 BUN 13 18 Creatinine 1.18 1.05 Est GFR ( Amer) 55 L > 60 Glucose 81 62 L Calcium 9.3 8.6 Impressions: Abdomen/Pelvis CT 11/25/19 04:39 IMPRESSION: 1. Multiple dilated small bowel loops with air-fluid levels, concerning for small bowel obstruction, possible transition point at the right lower quadrant. 2. Interval development of small amount of abdominal ascites. 3. Mild retroperitoneal adenopathy. 4. Partially visualized 8 mm nodule at the right lower lobe. This can be better evaluated with dedicated CT chest. KUB X-Ray 11/25/19 20:19 IMPRESSION: Satisfactory placement of nasogastric/orogastric tube copyright 2011 [employer]- All Rights Reserved Assessment & Plan - Diagnosis (1) Carcinoma of ovary, stage 4 Qualifiers: Laterality: right Is this a current diagnosis for this admission?: Yes (2) Small bowel obstruction Is this a current diagnosis for this admission?: Yes - Time Time Spent with patient: 15-24 minutes - Plan Summary Plan Summary: Assessment: Hospital day #2 for admission secondary to small bowel obstruction History of stage IV ovarian cancer High output nasogastric tube aspirate during the past 24 hours approximately 650 mL Good urine output Blood work within normal limits Flatus today Plan: 3 view of the abdomen this morning to evaluate the progress of the oral contrast given yesterday during the CAT scan line If the contrast has reached the distal small bowel and or the colon, the nasogastric tube can be clamped and, if tolerated, removed; Diet can be advanced to liquids if the nasogastric tube is removed
[2019-11-26] MEDS ORDERED: (PENDING PHARMACY ID) (Umeclidinium Brm/Vilanterol Tr [Anoro Ellipta 62.5-25 Mcg Inh] 1 PU IH SCH (10:00)
--- NOTE | 2019-11-26 10:00 | RADIOLOGY REPORT (SQ) ---
EXAM DESCRIPTION: ACUTE ABDOMEN SERIES COMPLETED DATE/TIME: 11/26/2019 9:37 am REASON FOR STUDY: Follow-up small bowel obstruction COMPARISON: None. NUMBER OF VIEWS: Three views. TECHNIQUE: Frontal chest, supine abdomen and upright/decubitus abdomen radiographic images acquired. LIMITATIONS: None. FINDINGS: CHEST: The cardiomediastinal silhouette and pulmonary vasculature within normal limits. T here is no consolidation, pleural effusion or pneumothorax. FREE AIR: No free intraperitoneal air. BOWEL GAS PATTERN: On the supine view there are dilated loops of small bowel in the mid abdomen that measure up to 3.1 cm. On the upright view there several air-fluid levels in the mid abdomen. There is oral contrast within the large bowel and rectum. CALCIFICATIONS: No calcifications. HARDWARE: The tip and side hole of the enteric tube project past the gastroesophageal junction and wi thin the gastric lumen. There surgical clips that project within the gallbladder fossa and right bernardo al fossa. SOFT TISSUES: No abnormality. BONES: Chronic fracture deformities of the right 6, 7th, 8th and 9th ribs. OTHER: No other finding. IMPRESSION: Dilated loops of small bowel in the mid abdomen with air-fluid levels. The findings cou ld represent a partial/ resolving small bowel obstruction given the presence of oral contrast within the large bowel and rectum. TECHNICAL DOCUMENTATION: JOB ID: [id number] [employer]- All Rights Reserved Reading location - IP/workstation name: [email or web address]
[2019-11-26] MEDS: PANTOPRAZOLE SODIUM 40 MG VIAL IV SCH (10:20)
--- NOTE | 2019-11-26 16:45 | PDOC PROGRESS REPORT ---
Subjective Progress Note for:: 11/26/19 Subjective:: SHAWANDA ZHANG is a 64 year old female with a past medical history of COPD, benzodiazepine dependent anxiety, bronchitis, Crestor hypertension, stage IV ovarian cancer with opiate dependent malignancy related pain who was admitted 11/25/19 for a small bowel obstruction secondary to fecal impaction. The patient was seen on morning rounds. She was found resting in bed, comfortably on room air. She has NG tube in place to low wall suction with large output of gastric fluid. She reports resolution of her abdominal discomfort, distention, and nausea since NG tube placement. She does complain of sore throat; encouraged to use Chloraseptic spray. She reports passing flatus this morning but has not yet had a bowel movement. She denies fever, chills, chest pain, palpitations, dyspnea, orthopnea. She has no other questions or concerns. No concerns per nursing. Reason For Visit: SBO STAGE 4 OVARIAN CA Physical Exam Vital Signs: Temp Pulse Resp BP Pulse Ox 98.6 F 80 17 150/72 H 94 11/26/19 13:16 11/26/19 13:16 11/26/19 13:16 11/26/19 13:16 11/26/19 13:16 Intake & Output 11/25/19 11/26/19 11/27/19 06:59 06:59 06:59 Intake Total 1000 3000 Output Total 1975 Balance 1000 1025 Weight 60.781 kg 59.1 kg 59.1 kg General appearance: PRESENT: no acute distress, cooperative, well-developed, well-nourished Head exam: PRESENT: atraumatic, normocephalic Eye exam: PRESENT: conjunctiva pink, EOMI, PERRLA. ABSENT: scleral icterus Ear exam: PRESENT: normal external ear exam Mouth exam: PRESENT: moist, tongue midline Respiratory exam: PRESENT: clear to auscultation krissy, symmetrical, unlabored. ABSENT: rales, rhonchi, wheezes Cardiovascular exam: PRESENT: RRR, +S1, +S2. ABSENT: diastolic murmur, rubs, systolic murmur Pulses: PRESENT: normal dorsalis pedis pul Vascular exam: PRESENT: normal capillary refill GI/Abdominal exam: PRESENT: hypoactive bowel sounds, soft, other - NG tube. ABSENT: distended, guarding, mass, organolmegaly, rebound, tenderness Rectal exam: PRESENT: deferred Extremities exam: PRESENT: full ROM. ABSENT: calf tenderness, clubbing, pedal edema Neurological exam: PRESENT: alert, awake, oriented to person, oriented to place, oriented to time, oriented to situation, CN II-XII grossly intact. ABSENT: motor sensory deficit Psychiatric exam: PRESENT: appropriate affect, normal mood. ABSENT: homicidal ideation, suicidal ideation Skin exam: PRESENT: dry, intact, warm. ABSENT: cyanosis, rash Results Laboratory Results: 11/24/19 23:10 11/26/19 04:36 11/25/19 11/26/19 14:55 04:36 Sodium 127.3 L 131.8 L Potassium 5.3 H 5.1 H Chloride 95 L 97 L Carbon Dioxide 25 25 Anion Gap 7 10 BUN 13 18 Creatinine 1.18 1.05 Est GFR ( Amer) 55 L > 60 Glucose 81 62 L Calcium 9.3 8.6 Impressions: Abdomen/Pelvis CT 11/25/19 04:39 IMPRESSION: 1. Multiple dilated small bowel loops with air-fluid levels, concerning for small bowel obstruction, possible transition point at the right lower quadrant. 2. Interval development of small amount of abdominal ascites. 3. Mild retroperitoneal adenopathy. 4. Partially visualized 8 mm nodule at the right lower lobe. This can be better evaluated with dedicated CT chest. KUB X-Ray 11/25/19 20:19 IMPRESSION: Satisfactory placement of nasogastric/orogastric tube copyright 2011 [employer]- All Rights Reserved Acute Abdomen Series 11/26/19 08:00 IMPRESSION: Dilated loops of small bowel in the mid abdomen with air-fluid levels. The findings could represent a partial/ resolving small bowel obstruction given the presence of oral contrast within the large bowel and rectum. Assessment and Plan - Diagnosis (1) Small bowel obstruction Is this a current diagnosis for this admission?: Yes Plan: Improved; passing flatus today. Decreased abdominal discomfort, distention, nausea. Acute abdomen series reveals oral contrast in the small bowel or rectum; likely demonstrating partial resolution of small bowel obstruction. Surgery is consulted; appreciate their evaluation and recommendations. May clamp NG tube today per surgery. Remains n.p.o; IV fluids for hydration. Antiemetics as needed. (2) Carcinoma of ovary, stage 4 Qualifiers: Laterality: right Qualified Code(s): C56.1 - Malignant neoplasm of right ovary Is this a current diagnosis for this admission?: Yes Plan: Supportive care, consider oncology consult (3) Hyponatremia Is this a current diagnosis for this admission?: Yes Plan: Improving. Secondary to poor p.o. intake with nausea and vomiting. Continue IV fluids. Follow-up chemistry. (4) Hypoglycemia Is this a current diagnosis for this admission?: Yes Plan: Secondary to n.p.o. status. IV fluids changed to D5NS Continue Accu-Cheks every 6 with hypoglycemia protocol. (5) Fecal impaction Is this a current diagnosis for this admission?: Yes Plan: Scant bm following enema Currently N.p.o. Passing flatus. Management as above. (6) Acute exacerbation of chronic obstructive pulmonary disease (COPD) Is this a current diagnosis for this admission?: Yes Plan: Resolved. Continue supplemental oxygen as needed to maintain saturations greater than 89%. As needed nebulizer treatments. Pulmonary toilet. (7) Tobacco use disorder, severe, dependence Is this a current diagnosis for this admission?: Yes Plan: Patient with terminal illness not interested in cessation, declines nicotine replacement options. - Time Time Spent with patient: 15-24 minutes Medications reviewed and adjusted accordingly: Yes Anticipated discharge: Home
[2019-11-26] MEDS ORDERED: MAGNESIUM CITRATE 296 ML BOTTLE PO ONE (18:15)
[2019-11-27] MEDS: DEXTROSE 5%-NORMAL SALINE 1,000 ML IV PRN ×2 (00:25→09:00)
[2019-11-27 04:39] LABS: HEMATOCRIT 27.7 % (36.0-47.0); MEAN CORPUSCULAR HEMOGLOBIN 29.5 pg (27.0-33.4); MEAN CORPUSCULAR HGB CONC 32.8 g/dL (32.0-36.0); MEAN CORPUSCULAR VOLUME 90 fl (80-97); PLATELET COUNT 423 10^3/uL (150-450); RED BLOOD COUNT 3.08 10^6/uL (3.72-5.28); RED CELL DISTRIBUTION WIDTH 16.4 % (11.5-14.0)
[2019-11-27 04:42] LABS: WHITE BLOOD COUNT 2.6 10^3/uL (4.0-10.5)
[2019-11-27 04:43] LABS: HEMOGLOBIN 9.1 g/dL (12.0-15.5)
[2019-11-27 04:52] LABS: BLOOD UREA NITROGEN 14 mg/dL (7-20); GLUCOSE 103 mg/dL (75-110)
[2019-11-27 04:58] LABS: CARBON DIOXIDE 29 mmol/L (22-30); CHLORIDE 98 mmol/L (98-107)
[2019-11-27 05:01] LABS: ANION GAP 4 (5-19)
[2019-11-27 05:22] LABS: POTASSIUM 3.9 mmol/L (3.6-5.0)
[2019-11-27] MEDS: HEPARIN SOD (PORCINE) 5,000 UNIT/ML 1 ML VIAL SUBCUT SCH ×3 (07:14→22:09)
--- NOTE | 2019-11-27 08:18 | PDOC PROGRESS REPORT ---
Subjective Progress Note for:: 11/27/19 Subjective:: Patient is feeling much better. She had several BMs, is passing gas, is asking for clear liquids, and is asking for a toothbrush. ROS: she is hungry. Denies dyspnea or pain. Reason For Visit: SBO STAGE 4 OVARIAN CA Physical Exam Vital Signs: Temp Pulse Resp BP Pulse Ox 98.6 F 72 16 150/72 H 92 11/26/19 13:16 11/27/19 02:00 11/26/19 15:14 11/26/19 13:16 11/26/19 15:14 Intake & Output 11/26/19 11/27/19 11/28/19 06:59 06:59 06:59 Intake Total 3000 900 Output Total 1975 800 Balance 1025 100 Weight 59.1 kg 66 kg General appearance: PRESENT: no acute distress, well-developed, well-nourished Head exam: PRESENT: normocephalic Eye exam: PRESENT: EOMI Respiratory exam: PRESENT: unlabored, other - upper airway noise and some crackles in bases. Right base deminishes breath sounds. Cardiovascular exam: PRESENT: RRR GI/Abdominal exam: PRESENT: hyperactive bowel sounds Extremities exam: ABSENT: pedal edema Neurological exam: PRESENT: alert, awake, oriented to person, oriented to place, oriented to time, oriented to situation Psychiatric exam: PRESENT: appropriate affect Skin exam: PRESENT: normal color Results Laboratory Results: 11/27/19 04:08 11/27/19 04:08 11/27/19 11/27/19 04:08 04:08 WBC 2.6 L D RBC 3.08 L Hgb 9.1 L D Hct 27.7 L MCV 90 MCH 29.5 MCHC 32.8 RDW 16.4 H Plt Count 423 Sodium 130.9 L Potassium 3.9 D Chloride 98 Carbon Dioxide 29 Anion Gap 4 L BUN 14 Creatinine 0.72 Est GFR ( Amer) > 60 Glucose 103 Calcium 8.0 L Impressions: Abdomen/Pelvis CT 11/25/19 04:39 IMPRESSION: 1. Multiple dilated small bowel loops with air-fluid levels, concerning for small bowel obstruction, possible transition point at the right lower quadrant. 2. Interval development of small amount of abdominal ascites. 3. Mild retroperitoneal adenopathy. 4. Partially visualized 8 mm nodule at the right lower lobe. This can be better evaluated with dedicated CT chest. KUB X-Ray 11/25/19 20:19 IMPRESSION: Satisfactory placement of nasogastric/orogastric tube copyright 2011 [employer]- All Rights Reserved Acute Abdomen Series 11/26/19 08:00 IMPRESSION: Dilated loops of small bowel in the mid abdomen with air-fluid levels. The findings could represent a partial/ resolving small bowel obstruction given the presence of oral contrast within the large bowel and rectum. Assessment & Plan - Diagnosis (1) Carcinoma of ovary, stage 4 Qualifiers: Laterality: right Qualified Code(s): C56.1 - Malignant neoplasm of right ovary Is this a current diagnosis for this admission?: Yes Plan: She has completed planned course of Gemzar and will be starting a new medication in the near future. (2) Small bowel obstruction Is this a current diagnosis for this admission?: Yes Plan: Improving. She does NOT wish to have surgery. Agree with plans to start clear liquids and advance diet. - Time Time Spent with patient: 15-24 minutes
[2019-11-27] MEDS: PANTOPRAZOLE SODIUM 40 MG VIAL IV SCH (09:29)
--- NOTE | 2019-11-27 10:59 | PDOC PROGRESS REPORT ---
Subjective Progress Note for:: 11/27/19 Reason For Visit: SBO STAGE 4 OVARIAN CA Patient feels better; received cathartics and patient has several significant stool evacuations. Physical Exam Vital Signs: Temp Pulse Resp BP Pulse Ox 98.6 F 66 16 150/72 H 92 11/26/19 13:16 11/27/19 07:00 11/26/19 15:14 11/26/19 13:16 11/26/19 15:14 Intake & Output 11/26/19 11/27/19 11/28/19 06:59 06:59 06:59 Intake Total 3000 900 1000 Output Total 1975 800 Balance 9948 800 2272 Weight 59.1 kg 66 kg General appearance: PRESENT: no acute distress GI/Abdominal exam: PRESENT: other - The abdomen soft nontender no peritoneal signs no rigidity. Rectal exam: PRESENT: deferred Results Laboratory Results: 11/27/19 04:08 11/27/19 04:08 11/27/19 11/27/19 04:08 04:08 WBC 2.6 L D RBC 3.08 L Hgb 9.1 L D Hct 27.7 L MCV 90 MCH 29.5 MCHC 32.8 RDW 16.4 H Plt Count 423 Sodium 130.9 L Potassium 3.9 D Chloride 98 Carbon Dioxide 29 Anion Gap 4 L BUN 14 Creatinine 0.72 Est GFR ( Amer) > 60 Glucose 103 Calcium 8.0 L Impressions: Abdomen/Pelvis CT 11/25/19 04:39 IMPRESSION: 1. Multiple dilated small bowel loops with air-fluid levels, concerning for small bowel obstruction, possible transition point at the right lower quadrant. 2. Interval development of small amount of abdominal ascites. 3. Mild retroperitoneal adenopathy. 4. Partially visualized 8 mm nodule at the right lower lobe. This can be better evaluated with dedicated CT chest. KUB X-Ray 11/25/19 20:19 IMPRESSION: Satisfactory placement of nasogastric/orogastric tube copyright 2011 [employer]- All Rights Reserved Acute Abdomen Series 11/26/19 08:00 IMPRESSION: Dilated loops of small bowel in the mid abdomen with air-fluid levels. The findings could represent a partial/ resolving small bowel obstruction given the presence of oral contrast within the large bowel and rectum. Assessment & Plan - Diagnosis (1) Abdominal pain Qualifiers: Abdominal location: generalized Qualified Code(s): R10.84 - Generalized abdominal pain Is this a current diagnosis for this admission?: Yes Plan: Impression: Abdominal pain resolved after cathartics Recommendations: 1. Continue current management 2. Surgery will sign off; reconsult if clinically indicated - Time Time Spent with patient: Less than 15 minutes Smoking Cessation Education: 3 to 10 minutes Medications reviewed and adjusted accordingly: Yes Anticipated discharge: Home
--- NOTE | 2019-11-27 11:25 | PDOC PROGRESS REPORT ---
Subjective Progress Note for:: 11/27/19 Subjective:: Patient is sitting up at the edge of the bed. She states that she feels quite weak. She has been in bed for several days. She lives alone and is worried about ambulating. She is moving her bowels and does not have any abdominal pain. Reason For Visit: SBO STAGE 4 OVARIAN CA Physical Exam Vital Signs: Temp Pulse Resp BP Pulse Ox 98.6 F 66 16 150/72 H 92 11/26/19 13:16 11/27/19 07:00 11/26/19 15:14 11/26/19 13:16 11/26/19 15:14 Intake & Output 11/26/19 11/27/19 11/28/19 06:59 06:59 06:59 Intake Total 3000 900 1000 Output Total 1975 800 Balance 3799 016 0458 Weight 59.1 kg 66 kg General appearance: PRESENT: no acute distress, cooperative, well-developed, well-nourished Head exam: PRESENT: atraumatic, normocephalic Mouth exam: PRESENT: moist, tongue midline Respiratory exam: PRESENT: rales - Faint rales at bases, symmetrical, unlabored. ABSENT: accessory muscle use, prolonged expiratory phas, rhonchi, tachypnea, wheezes Cardiovascular exam: PRESENT: RRR, +S1, +S2, systolic murmur - 2/6 GI/Abdominal exam: PRESENT: normal bowel sounds. ABSENT: distended, guarding, soft, tenderness Rectal exam: PRESENT: deferred Extremities exam: ABSENT: pedal edema Musculoskeletal exam: PRESENT: ambulatory, normal inspection Neurological exam: PRESENT: alert, awake, oriented to person, oriented to place, oriented to time, oriented to situation, CN II-XII grossly intact. ABSENT: motor sensory deficit Psychiatric exam: PRESENT: appropriate affect. ABSENT: agitated, anxious Skin exam: PRESENT: dry, warm. ABSENT: rash Results Laboratory Results: 11/27/19 04:08 11/27/19 04:08 11/27/19 11/27/19 04:08 04:08 WBC 2.6 L D RBC 3.08 L Hgb 9.1 L D Hct 27.7 L MCV 90 MCH 29.5 MCHC 32.8 RDW 16.4 H Plt Count 423 Sodium 130.9 L Potassium 3.9 D Chloride 98 Carbon Dioxide 29 Anion Gap 4 L BUN 14 Creatinine 0.72 Est GFR ( Amer) > 60 Glucose 103 Calcium 8.0 L Impressions: Abdomen/Pelvis CT 11/25/19 04:39 IMPRESSION: 1. Multiple dilated small bowel loops with air-fluid levels, concerning for small bowel obstruction, possible transition point at the right lower quadrant. 2. Interval development of small amount of abdominal ascites. 3. Mild retroperitoneal adenopathy. 4. Partially visualized 8 mm nodule at the right lower lobe. This can be better evaluated with dedicated CT chest. KUB X-Ray 11/25/19 20:19 IMPRESSION: Satisfactory placement of nasogastric/orogastric tube copyright 2010 [employer]- All Rights Reserved Acute Abdomen Series 11/26/19 08:00 IMPRESSION: Dilated loops of small bowel in the mid abdomen with air-fluid levels. The findings could represent a partial/ resolving small bowel obstruction given the presence of oral contrast within the large bowel and rectum. Assessment and Plan - Diagnosis (1) Small bowel obstruction Is this a current diagnosis for this admission?: Yes Plan: Resolved. Contrast has passed into the colon. Advancing diet to see if she tolerates it. (2) Carcinoma of ovary, stage 4 Qualifiers: Laterality: right Qualified Code(s): C56.1 - Malignant neoplasm of right ovary Is this a current diagnosis for this admission?: Yes Plan: Oncology will be orchestrating her next cycle of chemotherapy (3) Hyponatremia Is this a current diagnosis for this admission?: Yes Plan: Chronic (present in blood work back to 2013). Definitely improved from admission. No change in treatment plan. (4) Hypoglycemia Is this a current diagnosis for this admission?: Yes Plan: Resolved (5) Fecal impaction Is this a current diagnosis for this admission?: Yes Plan: Resolved with mag citrate and other treatments. (6) Acute exacerbation of chronic obstructive pulmonary disease (COPD) Is this a current diagnosis for this admission?: Yes Plan: Resolved (7) Tobacco use disorder, severe, dependence Is this a current diagnosis for this admission?: Yes Plan: Patient with terminal illness not interested in cessation, declines nicotine replacement options. 11/27/2019-patient's sentiments remained as above - Plan Summary Summary: 11/27/2019-patient is tolerating clears. Will advance to soft mechanical diet with chopped meats. If the patient tolerates this she will be able to go home. She is worried about ambulating and so I have asked the nurses to walk with her and physical therapy to see her in case she would benefit from any physical therapy at home. I explained to her that I feel it is just because she was n.p.o. for several days and that she will regain her strength quickly. Her blood work today she is found to be neutropenic. Her hemoglobin has dropped from admission and this could be delusional. Calcium is slightly low and this could be that she was n.p.o. however I will check a calcium and albumin as well. - Time Time Spent with patient: 15-24 minutes Medications reviewed and adjusted accordingly: Yes Anticipated discharge: Home Within: within 24 hours
[2019-11-28] MEDS: HEPARIN SOD (PORCINE) 5,000 UNIT/ML 1 ML VIAL SUBCUT SCH ×2 (06:15→13:14)
[2019-11-28 07:26] LABS: HEMATOCRIT 30.3 % (36.0-47.0); MEAN CORPUSCULAR VOLUME 91 fl (80-97); PLATELET COUNT 419 10^3/uL (150-450); RED BLOOD COUNT 3.32 10^6/uL (3.72-5.28); RED CELL DISTRIBUTION WIDTH 16.4 % (11.5-14.0); WHITE BLOOD COUNT 3.6 10^3/uL (4.0-10.5)
[2019-11-28 07:48] LABS: ALBUMIN 3.2 g/dL (3.5-5.0); ALKALINE PHOSPHATASE 81 U/L (38-126); ANION GAP 6 (5-19); ASPARTATE AMINO TRANSFERASE 28 U/L (14-36); BILIRUBIN,DIRECT 0.2 mg/dL (0.0-0.4); BILIRUBIN,TOTAL 0.3 mg/dL (0.2-1.3); BLOOD UREA NITROGEN 8 mg/dL (7-20); CALCIUM 8.6 mg/dL (8.4-10.2); CARBON DIOXIDE 27 mmol/L (22-30); CHLORIDE 97 mmol/L (98-107); GLUCOSE 81 mg/dL (75-110); POTASSIUM 4.4 mmol/L (3.6-5.0); TOTAL PROTEIN 6.1 g/dL (6.3-8.2)
--- NOTE | 2019-11-28 08:14 | PDOC PROGRESS REPORT ---
Subjective Progress Note for:: 11/28/19 Subjective:: No acute events overnight, patient is tolerating p.o. well. Had bowel movements, passing gas, things are moving through. She got up with some assistance with physical therapy but she was a minimal assist. She wants to get up and walk on her own today. But she feels overall ready to go home. Reason For Visit: SBO STAGE 4 OVARIAN CA Physical Exam Vital Signs: Temp Pulse Resp BP Pulse Ox 97.6 F 89 18 153/77 H 91 L 11/27/19 15:48 11/27/19 15:48 11/27/19 15:48 11/27/19 15:48 11/27/19 15:48 Intake & Output 11/27/19 11/28/19 11/29/19 06:59 06:59 06:59 Intake Total 900 2940 Output Total 800 Balance 100 2940 Weight 66 kg 69.2 kg General appearance: PRESENT: no acute distress, well-developed, well-nourished Head exam: PRESENT: atraumatic, normocephalic Eye exam: PRESENT: conjunctiva pink, EOMI, PERRLA. ABSENT: scleral icterus Ear exam: PRESENT: normal external ear exam Mouth exam: PRESENT: moist, tongue midline Neck exam: ABSENT: carotid bruit, JVD, lymphadenopathy, thyromegaly Respiratory exam: PRESENT: clear to auscultation krissy. ABSENT: rales, rhonchi, wheezes Cardiovascular exam: PRESENT: RRR. ABSENT: diastolic murmur, rubs, systolic murmur Pulses: PRESENT: normal dorsalis pedis pul Vascular exam: PRESENT: normal capillary refill GI/Abdominal exam: PRESENT: normal bowel sounds, soft. ABSENT: distended, guarding, mass, organolmegaly, rebound, tenderness Rectal exam: PRESENT: deferred Extremities exam: PRESENT: full ROM. ABSENT: calf tenderness, clubbing, pedal edema Neurological exam: PRESENT: alert, awake, oriented to person, oriented to place, oriented to time, oriented to situation, CN II-XII grossly intact. ABSENT: motor sensory deficit Psychiatric exam: PRESENT: appropriate affect, normal mood. ABSENT: homicidal ideation, suicidal ideation Skin exam: PRESENT: dry, intact, warm. ABSENT: cyanosis, rash Results Laboratory Results: 11/28/19 06:54 11/28/19 06:54 11/28/19 11/28/19 06:54 06:54 WBC 3.6 L RBC 3.32 L Hgb 10.0 L Hct 30.3 L MCV 91 MCH 30.0 MCHC 33.0 RDW 16.4 H Plt Count 419 Sodium 130.4 L Potassium 4.4 Chloride 97 L Carbon Dioxide 27 Anion Gap 6 BUN 8 Creatinine 0.74 Est GFR ( Amer) > 60 Glucose 81 Calcium 8.6 Magnesium 2.1 Total Bilirubin 0.3 AST 28 Alkaline Phosphatase 81 Total Protein 6.1 L Albumin 3.2 L Impressions: Abdomen/Pelvis CT 11/25/19 04:39 IMPRESSION: 1. Multiple dilated small bowel loops with air-fluid levels, concerning for small bowel obstruction, possible transition point at the right lower quadrant. 2. Interval development of small amount of abdominal ascites. 3. Mild retroperitoneal adenopathy. 4. Partially visualized 8 mm nodule at the right lower lobe. This can be better evaluated with dedicated CT chest. KUB X-Ray 11/25/19 20:19 IMPRESSION: Satisfactory placement of nasogastric/orogastric tube copyright 2011 [facility] [employer]- All Rights Reserved Acute Abdomen Series 11/26/19 08:00 IMPRESSION: Dilated loops of small bowel in the mid abdomen with air-fluid levels. The findings could represent a partial/ resolving small bowel obstruction given the presence of oral contrast within the large bowel and rectum. Assessment & Plan - Diagnosis (1) Small bowel obstruction Is this a current diagnosis for this admission?: Yes Plan: Resolved, much better now. Hopefully will remain appropriate. We will have follow-up next week for her. (2) Carcinoma of ovary, stage 4 Qualifiers: Laterality: right Qualified Code(s): C56.1 - Malignant neoplasm of right ovary Is this a current diagnosis for this admission?: Yes Plan: Starting other oral therapy as an outpatient. - Time Time Spent with patient: 35 or more minutes
[2019-11-28] MEDS: PANTOPRAZOLE SODIUM 40 MG VIAL IV SCH ×2 (09:35→09:36)
[2019-11-28] MEDS ORDERED: ASPIRIN 81 MG TABLET, CHEWABLE PO SCH (10:00)
--- NOTE | 2019-11-28 12:55 | PDOC DISCHARGE SUMMARY ---
Impression - Admit/DC Date/PCP Admission Date/Primary Care Provider: 11/25/19 05:40 KELSEY TAVERA MD Discharge Date: 11/28/19 - Discharge Diagnosis (1) Small bowel obstruction Is this a current diagnosis for this admission?: Yes (2) Carcinoma of ovary, stage 4 Is this a current diagnosis for this admission?: Yes (3) Hyponatremia Is this a current diagnosis for this admission?: Yes (4) Hypoglycemia Is this a current diagnosis for this admission?: Yes (5) Fecal impaction Is this a current diagnosis for this admission?: Yes (6) Acute exacerbation of chronic obstructive pulmonary disease (COPD) Is this a current diagnosis for this admission?: Yes (7) Tobacco use disorder, severe, dependence Is this a current diagnosis for this admission?: Yes - Assessment Summary: 11/27/2019-patient is tolerating clears. Will advance to soft mechanical diet with chopped meats. If the patient tolerates this she will be able to go home. She is worried about ambulating and so I have asked the nurses to walk with her and physical therapy to see her in case she would benefit from any physical therapy at home. I explained to her that I feel it is just because she was n.p.o. for several days and that she will regain her strength quickly. Her blood work today she is found to be neutropenic. Her hemoglobin has dropped from admission and this could be delusional. Calcium is slightly low and this could be that she was n.p.o. however I will check a calcium and albumin as well. - Additional Information Resuscitation Status: Full Code Discharge Diet: As Tolerated Discharge Activity: Activity As Tolerated Referrals: KELSEY TAVERA MD [Primary Care Provider] - 12/03/19 9:30 am Home Medications: Albuterol Sulfate [Ventolin Hfa 8 gm Mdi (1 Mdi/ER Disp)] 2 puff IH Q6HP PRN 02/26/19 Alprazolam [Xanax 0.5 mg Tablet] 0.5 mg PO Q8HP PRN 02/26/19 Lisinopril [Prinivil 40 mg Tablet] 40 mg PO QAM 02/26/19 Umeclidinium Brm/Vilanterol Tr [Anoro Ellipta 62.5-25 Mcg INH] 1 puff IH DAILY 02/26/19 Aspirin [Aspirin 81 mg Chewable Tablet] 81 mg PO DAILY 06/21/19 Famotidine [Pepcid AC] 20 mg PO DAILY 06/21/19 History of Present Illiness History of Present Illness: SHAWANDA ZHANG is a 64 year old female with a past medical history of COPD, benzodiazepine dependent anxiety, bronchitis, essential hypertension and stage IV ovarian cancer with opioid dependent malignancy related pain presented for max department 12 hours of worsening abdominal pain and nausea without vomiting. CT scan revealed possible small bowel obstruction. She was also found to have hyponatremia and hyperkalemia. The patient was referred to the hospital service for admission. Hospital Course Hospital Course: The patient's hospital course was significant for needing to resolve her constipation for the bowel obstruction to be relieved. This took several days. She is also feeling quite weak. She completed a course of chemotherapy recently for her malignancy. Once she was having bowel movements and tolerating oral intake she was discharged Physical Exam Vital Signs: Temp Pulse Resp BP Pulse Ox 97.6 F 89 18 153/77 H 91 L 11/27/19 15:48 11/27/19 15:48 11/27/19 15:48 11/27/19 15:48 11/27/19 15:48 Intake & Output 11/27/19 11/28/19 11/29/19 06:59 06:59 06:59 Intake Total 900 2940 Output Total 800 Balance 100 2940 Weight 66 kg 69.2 kg General appearance: PRESENT: no acute distress, cooperative, well-developed, well-nourished Head exam: PRESENT: atraumatic, normocephalic Respiratory exam: PRESENT: clear to auscultation krissy, symmetrical, unlabored. ABSENT: accessory muscle use, rales, rhonchi, tachypnea, wheezes Cardiovascular exam: PRESENT: RRR, +S1, +S2 GI/Abdominal exam: PRESENT: normal bowel sounds, soft. ABSENT: distended, tenderness Extremities exam: ABSENT: pedal edema Neurological exam: PRESENT: alert, awake, oriented to person, oriented to place, oriented to time, oriented to situation, CN II-XII grossly intact Psychiatric exam: PRESENT: appropriate affect, normal mood. ABSENT: agitated, anxious Focused psych exam: ABSENT: delusional, restlessness Skin exam: PRESENT: dry, warm, other - Indurated area right forearm from intravenous. Scattered ecchymotic lesions from needlesticks. Results Laboratory Results: WBC 3.6 10^3/uL (4.0-10.5) L 11/28/19 06:54 RBC 3.32 10^6/uL (3.72-5.28) L 11/28/19 06:54 Hgb 10.0 g/dL (12.0-15.5) L 11/28/19 06:54 Hct 30.3 % (36.0-47.0) L 11/28/19 06:54 MCV 91 fl (80-97) 11/28/19 06:54 MCH 30.0 pg (27.0-33.4) 11/28/19 06:54 MCHC 33.0 g/dL (32.0-36.0) 11/28/19 06:54 RDW 16.4 % (11.5-14.0) H 11/28/19 06:54 Plt Count 419 10^3/uL (150-450) 11/28/19 06:54 Lymph % (Auto) Not Reportable 11/24/19 23:10 Garland % (Auto) Not Reportable 11/24/19 23:10 Eos % (Auto) Not Reportable 11/24/19 23:10 Baso % (Auto) Not Reportable 11/24/19 23:10 Absolute Neuts (auto) Not Reportable 11/24/19 23:10 Absolute Lymphs (auto) Not Reportable 11/24/19 23:10 Absolute Monos (auto) Not Reportable 11/24/19 23:10 Absolute Eos (auto) Not Reportable 11/24/19 23:10 Absolute Basos (auto) Not Reportable 11/24/19 23:10 Total Counted 100 11/24/19 23:10 Seg Neutrophils % Not Reportable 11/24/19 23:10 Seg Neuts % (Manual) 73 % (42-78) 11/24/19 23:10 Band Neutrophils % 1 % (3-5) L 11/24/19 23:10 Lymphocytes % (Manual) 18 % (13-45) 11/24/19 23:10 Monocytes % (Manual) 5 % (3-13) 11/24/19 23:10 Eosinophils % (Manual) 2 % (0-6) 11/24/19 23:10 Basophils % (Manual) 1 % (0-2) 11/24/19 23:10 Abs Neuts (Manual) 3.3 10^3/uL (1.7-8.2) 11/24/19 23:10 Abs Lymphs (Manual) 0.8 10^3/uL (0.5-4.7) 11/24/19 23:10 Abs Monocytes (Manual) 0.2 10^3/uL (0.1-1.4) 11/24/19 23:10 Absolute Eos (Manual) 0.1 10^3/uL (0.0-0.6) 11/24/19 23:10 Abs Basophils (Manual) 0.0 10^3/uL (0.0-0.2) 11/24/19 23:10 Platelet Comment ADEQUATE 11/24/19 23:10 Polychromasia 1+ 11/24/19 23:10 Anisocytosis 1+ 11/24/19 23:10 Sodium 130.4 mmol/L (137-145) L 11/28/19 06:54 Potassium 4.4 mmol/L (3.6-5.0) 11/28/19 06:54 Chloride 97 mmol/L (98-107) L 11/28/19 06:54 Carbon Dioxide 27 mmol/L (22-30) 11/28/19 06:54 Anion Gap 6 (5-19) 11/28/19 06:54 BUN 8 mg/dL (7-20) 11/28/19 06:54 Creatinine 0.74 mg/dL (0.52-1.25) 11/28/19 06:54 Est GFR ( Amer) > 60 (>60) 11/28/19 06:54 Est GFR (MDRD) Non-Af > 60 (>60) 11/28/19 06:54 Glucose 81 mg/dL (75-110) 11/28/19 06:54 POC Glucose 153 mg/dL (70-110) H 11/27/19 16:30 Calcium 8.6 mg/dL (8.4-10.2) 11/28/19 06:54 Magnesium 2.1 mg/dL (1.6-2.3) 11/28/19 06:54 Total Bilirubin 0.3 mg/dL (0.2-1.3) 11/28/19 06:54 Direct Bilirubin 0.2 mg/dL (0.0-0.4) 11/28/19 06:54 Neonat Total Bilirubin Not Reportable 11/28/19 06:54 Neonat Direct Bilirubin Not Reportable 11/28/19 06:54 Neonat Indirect Bili Not Reportable 11/28/19 06:54 AST 28 U/L (14-36) 11/28/19 06:54 ALT 11 U/L (<35) 11/28/19 06:54 Alkaline Phosphatase 81 U/L (38-126) 11/28/19 06:54 Total Protein 6.1 g/dL (6.3-8.2) L 11/28/19 06:54 Albumin 3.2 g/dL (3.5-5.0) L 11/28/19 06:54 Lipase 67.6 U/L (23-300) 11/24/19 23:10 Impressions: Abdomen/Pelvis CT 11/24/19 23:43 IMPRESSION: Mildly dilated loops of proximal small bowel. The possibility of a partial or early small bowel obstruction is raised. TECHNICAL DOCUMENTATION: Quality ID # 436: Final reports with documentation of one or more dose reduction techniques (e.g., Automated exposure control, adjustment of the mA and/or kV according to patient size, use of iterative reconstruction technique) copyright 2011 [employer]- All Rights Reserved Abdomen/Pelvis CT 11/25/19 04:39 IMPRESSION: 1. Multiple dilated small bowel loops with air-fluid levels, concerning for small bowel obstruction, possible transition point at the right lower quadrant. 2. Interval development of small amount of abdominal ascites. 3. Mild retroperitoneal adenopathy. 4. Partially visualized 8 mm nodule at the right lower lobe. This can be better evaluated with dedicated CT chest. KUB X-Ray 11/25/19 20:19 IMPRESSION: Satisfactory placement of nasogastric/orogastric tube copyright 2011 [employer]- All Rights Reserved Acute Abdomen Series 11/26/19 08:00 IMPRESSION: Dilated loops of small bowel in the mid abdomen with air-fluid levels. The findings could represent a partial/ resolving small bowel obstruction given the presence of oral contrast within the large bowel and rectum. Plan Health Concerns: Ongoing use of tobacco. The possibility of recurrent constipation. Plan of Treatment: Patient will resume previous medication regimen. Follow-up with oncology as above. Goals: Smoking cessation Time Spent: Greater than 30 Minutes Stroke Is this a Stroke Patient?: No Acute Heart Failure - Is this a Heart Failure Patient?: No
[2019-11-28 13:24] VITALS: BP 159/68
== END 2019-11-28 13:57 | disposition home or self-care (01) | DRG 389 ==
LOC: ER 22:48 → EH 11-25 05:40 → 5 11-25 07:31
PROVIDERS: ADMIT Internal Medicine; ATTEND Internal Medicine
DX: K56.609 Unspecified intestinal obstruction, unspecified as to partial versus complete obstruction (principal); J44.1 Chronic obstructive pulmonary disease with (acute) exacerbation; F11.20 Opioid dependence, uncomplicated; E87.1 Hypo-osmolality and hyponatremia; C56.1 Malignant neoplasm of right ovary; E16.2 Hypoglycemia, unspecified; K56.41 Fecal impaction; F19.980 Other psychoactive substance use, unspecified with psychoactive substance-induced anxiety disorder; J40 Bronchitis, not specified as acute or chronic; I10 Essential (primary) hypertension; G89.3 Neoplasm related pain (acute) (chronic); E87.5 Hyperkalemia; M19.90 Unspecified osteoarthritis, unspecified site; F32.9 Major depressive disorder, single episode, unspecified; F17.210 Nicotine dependence, cigarettes, uncomplicated; Z79.82 Long term (current) use of aspirin; Z79.899 Other long term (current) drug therapy; Z71.6 Tobacco abuse counseling; Z80.9 Family history of malignant neoplasm, unspecified; Z82.49 Family history of ischemic heart disease and other diseases of the circulatory system; Z88.6 Allergy status to analgesic agent; Z88.1 Allergy status to other antibiotic agents; Z88.7 Allergy status to serum and vaccine; Z88.8 Allergy status to other drugs, medicaments and biological substances; Z92.21 Personal history of antineoplastic chemotherapy
CPT/HCPCS: 36415; 74018; 74022; 74176; 74177; 80048; 80053; 82962; 83690; 83735; 85025; 85027; 96361; 96374; 96375; 99285; C9113; J0780; J1644; J1885; J2270; J2405; J2550; J3490; J7030; J7042

== ENCOUNTER 2019-12-27 07:31 | Day surgery (SDC) | payer MEDICARE, MEDICAID ==
[2019-12-27 08:33] LABS: HEMATOCRIT 30.8 % (36.0-47.0); INTERNATIONAL RATION (INR) 0.93; MEAN CORPUSCULAR HEMOGLOBIN 29.2 pg (27.0-33.4); MEAN CORPUSCULAR HGB CONC 32.4 g/dL (32.0-36.0); MEAN CORPUSCULAR VOLUME 90 fl (80-97); PLATELET COUNT 343 10^3/uL (150-450); PROTHROMBIN TIME 12.5 SEC (11.4-15.4); RED BLOOD COUNT 3.42 10^6/uL (3.72-5.28); WHITE BLOOD COUNT 3.8 10^3/uL (4.0-10.5)
[2019-12-27 08:34] LABS: PARTIAL THROMBOPLASTIN TIME 34.1 SEC (23.5-35.8)
[2019-12-27 08:42] VITALS: BP 162/84
[2019-12-27 08:46] LABS: BLOOD UREA NITROGEN 7 mg/dL (7-20)
--- NOTE | 2019-12-27 11:13 | RADIOLOGY REPORT (SQ) ---
EXAM DESCRIPTION: U/S ABDOMEN LIMITED W/O DOP COMPLETED DATE/TIME: 12/27/2019 10:24 am REASON FOR STUDY: ASCITES R18.8 OTHER ASCITES Z79.01 [facility] (CURRENT) USE OF ANTICOAGULANTS COMPARISON: None. TECHNIQUE: Limited Static and real time max scale imaging performed of the 4 abdominal quadrants an d the midline. LIMITATIONS: None. FINDINGS: ASCITES: None identified. OTHER: No other significant finding. IMPRESSION: Insufficient ascites for paracentesis. TECHNICAL DOCUMENTATION: JOB ID: [id number] 2010 [employer]- All Rights Reserved Reading location - IP/workstation name: [email or web address]
== END 2019-12-27 09:30 | disposition home or self-care (01) ==
LOC: RAD 07:31
PROVIDERS: ATTEND Internal Medicine
DX: R18.8 Other ascites (principal); Z79.01 Long term (current) use of anticoagulants; Z98.51 Tubal ligation status; D64.9 Anemia, unspecified; I10 Essential (primary) hypertension; Z79.899 Other long term (current) drug therapy
CPT/HCPCS: 36415; 76705; 82565; 84520; 85027; 85610; 85730

== ENCOUNTER → 2020-01-21 | Outpatient (CLI) | payer MEDICARE, MEDICAID ==
--- NOTE | 2020-01-21 10:17 | RADIOLOGY REPORT (SQ) ---
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 Images reviewed with lung, soft tissue and bone windows. Reconstructed coronal a nd sagittal MPR images reviewed. All images stored on PACS. All CT scanners at this facility use dose modulation, iterative reconstruction, and/or weight based d osing when appropriate to reduce radiation dose to as low as reasonably achievable (ALARA). [facility]: Dose Right [facility]: CareDose [facility]: Dose Right [facility]: Teradose 4D [facility]: fluid Operations RADIATION DOSE: CT Rad equipment meets quality standard of care and radiation dose reduction techniq ues were employed. CTDIvol: NaN - NaN mGy. DLP: 0 mGy-cm. . LIMITATIONS: None. FINDINGS: AXILLAE: Fairly extensive bilateral axillary adenopathy. Nodes have increased in number a nd size when compared to prior exam. Single node in the left axilla measures 2.4 cm in greatest diam eter. CHEST WALL: No masses. No subcutaneous air. LUNGS: Stable 6.1 mm nodule in the right apex best demonstrated on series 6, image 15. Stable ground -glass opacity in the periphery of the left upper lobe best demonstrated on series 6, image 28. Stab le subpleural nodule in the left apex as well. Mild bilateral emphysematous change. Stable ground-g lass nodule anteriorly in the left upper lobe best demonstrated on series 6, image 47. Stable approx imately 8 mm nodule in the right base best demonstrated on series 6, image 80. PLEURA: Small left pleural effusion new from prior study. THYROID: No masses or significant asymmetry. HILAR AND MEDIASTINAL STRUCTURES: No identified masses or abnormal nodes. AORTA AND GREAT VESSELS: No aneurysm. No dissection. PULMONARY ARTERIES: No identified pulmonary emboli. Study not optimized for the pulmonary arteries. HEART: No pericardial effusion. HARDWARE AND LIFELINES: [id number] is in place. BONES: No significant finding. OTHER: No other significant finding. IMPRESSION: 1. Fairly extensive bilateral axillary adenopathy increased from prior examination. 2. Numerous stable bilateral pulmonary nodules. The largest is in the right base and measures appro ximately 8 mm in greatest diameter. 3. Small left pleural effusion. COMPARISON: None. RADIATION DOSE: CT Rad equipment meets quality standard of care and radiation dose reduction techniq ues were employed. CTDIvol: NaN - NaN mGy. DLP: 0 mGy-cm. mGy. TECHNIQUE: CT scan of the abdomen and pelvis performed with intravenous and oral contrast using sarah marleen scanning technique with dynamic intravenous contrast injection. Images reviewed with lung, soft tissue and bone windows. Reconstructed coronal and sagittal MPR images reviewed. Delayed images for evaluation of the urinary system also acquired and evaluated. All images stored on PACS. All CT scanners at this facility use dose modulation, iterative reconstruction, and/or weight based d osing when appropriate to reduce radiation dose to as low as reasonably achievable (ALARA). [facility]: Dose Right [facility]: SureCare [facility]: Dose Right [facility]: Teradose 4D [facility]: fluid Operations FINDINGS: LIVER: Normal size. No masses. No dilated ducts. SPLEEN: Normal size. No focal lesions. PANCREAS: No masses. No significant calcifications. No adjacent inflammation or peripancreatic flui d collections. Pancreatic duct not dilated. GALLBLADDER: Surgically absent. ADRENAL GLANDS: No significant masses or asymmetry. RIGHT KIDNEY AND URETER: No solid masses. No significant calcifications. No hydronephrosis or hyd roureter. LEFT KIDNEY AND URETER: No solid masses. No significant calcifications. No hydronephrosis or hydr oureter. AORTA AND VESSELS: No aneurysm. No dissection. Renal arteries, SMA, celiac without stenosis. RETROPERITONEUM: Pair clamp nodes are slightly increased in size when compared to prior study. The l argest node measures 1.5 cm. This is best demonstrated on series 3, image 27. LARGE AND SMALL BOWEL: No dilatation. No masses. No wall thickening. APPENDIX: Normal. ABDOMINAL WALL: Subcutaneous edema. PERITONEAL CAVITY: Soft tissue attenuation in the left upper quadrant involving the mesenteric. Best demonstrated on series 3 images 17 through 23. Metastatic disease cannot be excluded. PELVIS: Increasing bilateral inguinal adenopathy. BONES: No significant or acute findings. OTHER: No other significant finding. IMPRESSION: Increasing periaortic and inguinal adenopathy suspicious for metastatic disease. Probable peritoneal implants in the left upper quadrant increased from prior study. TECHNICAL DOCUMENTATION: JOB ID: [id number] Quality ID # 436: Final reports with documentation of one or more dose reduction techniques (e.g., Au tomated exposure control, adjustment of the mA and/or kV according to patient size, use of iterative reconstruction technique) 2010 [employer]- All Rights Reserved Reading location - IP/workstation name: [email or web address]
--- NOTE | 2020-01-21 10:17 | RADIOLOGY REPORT (SQ) ---
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 Images reviewed with lung, soft tissue and bone windows. Reconstructed coronal a nd sagittal MPR images reviewed. All images stored on PACS. All CT scanners at this facility use dose modulation, iterative reconstruction, and/or weight based d osing when appropriate to reduce radiation dose to as low as reasonably achievable (ALARA). [facility]: Dose Right [facility]: CareDose [facility]: Dose Right [facility]: Teradose 4D [facility]: MyPublisher RADIATION DOSE: CT Rad equipment meets quality standard of care and radiation dose reduction techniq ues were employed. CTDIvol: NaN - NaN mGy. DLP: 0 mGy-cm. . LIMITATIONS: None. FINDINGS: AXILLAE: Fairly extensive bilateral axillary adenopathy. Nodes have increased in number a nd size when compared to prior exam. Single node in the left axilla measures 2.4 cm in greatest diam eter. CHEST WALL: No masses. No subcutaneous air. LUNGS: Stable 6.1 mm nodule in the right apex best demonstrated on series 6, image 15. Stable ground -glass opacity in the periphery of the left upper lobe best demonstrated on series 6, image 28. Stab le subpleural nodule in the left apex as well. Mild bilateral emphysematous change. Stable ground-g lass nodule anteriorly in the left upper lobe best demonstrated on series 6, image 47. Stable approx imately 8 mm nodule in the right base best demonstrated on series 6, image 80. PLEURA: Small left pleural effusion new from prior study. THYROID: No masses or significant asymmetry. HILAR AND MEDIASTINAL STRUCTURES: No identified masses or abnormal nodes. AORTA AND GREAT VESSELS: No aneurysm. No dissection. PULMONARY ARTERIES: No identified pulmonary emboli. Study not optimized for the pulmonary arteries. HEART: No pericardial effusion. HARDWARE AND LIFELINES: Avnddj-D-Mgjt is in place. BONES: No significant finding. OTHER: No other significant finding. IMPRESSION: 1. Fairly extensive bilateral axillary adenopathy increased from prior examination. 2. Numerous stable bilateral pulmonary nodules. The largest is in the right base and measures appro ximately 8 mm in greatest diameter. 3. Small left pleural effusion. COMPARISON: None. RADIATION DOSE: CT Rad equipment meets quality standard of care and radiation dose reduction techniq ues were employed. CTDIvol: NaN - NaN mGy. DLP: 0 mGy-cm. mGy. TECHNIQUE: CT scan of the abdomen and pelvis performed with intravenous and oral contrast using sarah marleen scanning technique with dynamic intravenous contrast injection. Images reviewed with lung, soft tissue and bone windows. Reconstructed coronal and sagittal MPR images reviewed. Delayed images for evaluation of the urinary system also acquired and evaluated. All images stored on PACS. All CT scanners at this facility use dose modulation, iterative reconstruction, and/or weight based d osing when appropriate to reduce radiation dose to as low as reasonably achievable (ALARA). [facility]: Dose Right [facility]: [employer]Care [facility]: Dose Right [facility]: Teradose 4D [facility]: [employer]Publisher FINDINGS: LIVER: Normal size. No masses. No dilated ducts. SPLEEN: Normal size. No focal lesions. PANCREAS: No masses. No significant calcifications. No adjacent inflammation or peripancreatic flui d collections. Pancreatic duct not dilated. GALLBLADDER: Surgically absent. ADRENAL GLANDS: No significant masses or asymmetry. RIGHT KIDNEY AND URETER: No solid masses. No significant calcifications. No hydronephrosis or hyd roureter. LEFT KIDNEY AND URETER: No solid masses. No significant calcifications. No hydronephrosis or hydr oureter. AORTA AND VESSELS: No aneurysm. No dissection. Renal arteries, SMA, celiac without stenosis. RETROPERITONEUM: Pair clamp nodes are slightly increased in size when compared to prior study. The l argest node measures 1.5 cm. This is best demonstrated on series 3, image 27. LARGE AND SMALL BOWEL: No dilatation. No masses. No wall thickening. APPENDIX: Normal. ABDOMINAL WALL: Subcutaneous edema. PERITONEAL CAVITY: Soft tissue attenuation in the left upper quadrant involving the mesenteric. Best demonstrated on series 3 images 17 through 23. Metastatic disease cannot be excluded. PELVIS: Increasing bilateral inguinal adenopathy. BONES: No significant or acute findings. OTHER: No other significant finding. IMPRESSION: Increasing periaortic and inguinal adenopathy suspicious for metastatic disease. Probable peritoneal implants in the left upper quadrant increased from prior study. TECHNICAL DOCUMENTATION: JOB ID: [id number] Quality ID # 436: Final reports with documentation of one or more dose reduction techniques (e.g., Au tomated exposure control, adjustment of the mA and/or kV according to patient size, use of iterative reconstruction technique) 2010 [employer]- All Rights Reserved Reading location - IP/workstation name: [email or web address]
== END ==
LOC: RAD 09:25
PROVIDERS: ATTEND Physician Assistant Medical
DX: C56.2 Malignant neoplasm of left ovary (principal)
CPT/HCPCS: 71260; 74177

== ENCOUNTER → 2020-04-01 | Outpatient (CLI) | payer MEDICARE, MEDICAID ==
--- NOTE | 2020-04-01 11:26 | RADIOLOGY REPORT (SQ) ---
EXAM DESCRIPTION: CT CHEST WITH IMAGES COMPLETED DATE/TIME: 04/01/2020 9:16 am REASON FOR STUDY: OVARIAN CA (C56.2) C56.2 MALIGNANT NEOPLASM OF LEFT OVARY COMPARISON: CT of the chest with contrast from 01/21/2020. TECHNIQUE: CT scan of the chest performed using helical scanning technique with dynamic intravenous contrast injection. Images reviewed with lung, soft tissue and bone windows. Reconstructed coronal and sagittal MPR and MIP images reviewed. All images stored on PACS. All CT scanners at this facility use dose modulation, iterative reconstruction, and/or weight based d osing when appropriate to reduce radiation dose to as low as reasonably achievable (ALARA). [facility]: Dose Right [facility]: CareDose [facility]: Dose Right [facility]: Teradose 4D [facility]: [employer] CONTRAST TYPE AND DOSE: Contrast/concentration: Isovue 350.00 mg/ml; Total Contrast Delivered: 66.0 ml; Total Saline Delivered: 65.0 ml RENAL FUNCTION: Creatinine 0.8 milligrams/deciliter. LIMITATIONS: None. FINDINGS: LUNGS AND PLEURA: Unchanged mild upper lobe predominant centrilobular emphysema, mild bron chiectasis/bronchiolectasis, and mild bronchial wall thickening. The left pleural effusion has incre ased in size since the prior CT. The opacities in the lingula are unchanged and could represent atel ectasis. There is no acute consolidation, ground-glass opacification or pneumothorax. LUNG NODULES: The 6 mm nodule in the apical segment of the right upper lobe (image 15 of series 6), t he ill-defined 8 mm nodular opacity in the left upper lobe (image 28 of series 6), the ill-defined no dular opacity in the right upper lobe (image 39 of series 6), the mixed solid and ground-glass nodula r opacity in the superior segment of the right lower lobe (image 52 of series 6), the plaque-like opa city along the left interlobar fissure (image 61 of series 6), the branching nodular opacity in the r ight middle lobe (image 64 of series 6), and the spiculated solid 7 mm nodule in the right lower lobe (image 78 of series 6) are unchanged from the prior CT. There is no new or enlarging pulmonary nodu le. HILAR AND MEDIASTINAL STRUCTURES: No mediastinal adenopathy or mass. HEART AND VASCULAR STRUCTURES: Variant 4 vessel arch with a direct origin of the left vertebral arter y from the arch. There is no thoracic aortic dissection or aneurysm. Atherosclerotic calcification of the coronary arteries. There is no cardiomegaly or pericardial effu esha. HARDWARE: The tip of the right IJ single-lumen port terminates within the SVC. UPPER ABDOMEN: Refer separate report of the CT of the abdomen. THYROID AND OTHER SOFT TISSUES: Enlarged bilateral axillary and subpectoral lymph nodes that have inc reased in size from the prior CT ; for reference the 3 x 2.2 cm lobular nodule in the left axilla (im age 14 of series 2) measured 2.[address] on the prior CT and the elongated 3.3 x 1.1 cm nodule in th e right axilla (image 19 of series 2) measured 2.8 x 0.9 cm on the prior CT. BONES: No fracture or osseous lesion. OTHER: Stable nonenlarged (based on size criteria lateral pericardial and pre pericardial nodes (imag e 46 of series 2) and unchanged asymmetric dermal thickening of the left breast. IMPRESSION: 1. Enlarging bilateral axillary and subpectoral adenopathy. 2. Stable pulmonary nodules and nodular opacities as detailed above. TECHNICAL DOCUMENTATION: JOB ID: [id number] Quality ID # 436: Final reports with documentation of one or more dose reduction techniques (e.g., Au tomated exposure control, adjustment of the mA and/or kV according to patient size, use of iterative reconstruction technique) 2010 [employer]- All Rights Reserved Reading location - IP/workstation name: [email or web address]
--- NOTE | 2020-04-01 13:07 | RADIOLOGY REPORT (SQ) ---
EXAM DESCRIPTION: CT ABD/PELVIS WITH IV ORAL IMAGES COMPLETED DATE/TIME: 04/01/2020 9:17 am REASON FOR STUDY: OVARIAN CA (C56.2) C56.2 MALIGNANT NEOPLASM OF LEFT OVARY COMPARISON: CT of the abdomen and pelvis with contrast from 01/21/2020. TECHNIQUE: CT scan of the abdomen and pelvis performed using helical scanning technique with dynamic intravenous contrast injection. No oral contrast. Images reviewed with lung, soft tissue, and bone windows. Reconstructed coronal and sagittal MPR images reviewed. Delayed images for evaluation of the urinary system also acquired. All images stored on PACS. All CT scanners at this facility use dose modulation, iterative reconstruction, and/or weight based d osing when appropriate to reduce radiation dose to as low as reasonably achievable (ALARA). [facility]: Dose Right [facility]: CareDose [facility]: Dose Right [facility]: Teradose 4D [facility]: [employer] CONTRAST TYPE AND DOSE: 66 mL Omnipaque 350- low osmolar. RENAL FUNCTION: Creatinine 0.8 milligrams/deciliter. RADIATION DOSE: CT Rad equipment meets quality standard of care and radiation dose reduction techniq ues were employed. CTDIvol: 4.4 - 4.7 mGy. DLP: 605 mGy-cm. LIMITATIONS: None. FINDINGS: LOWER CHEST: Refer to the separate report of the CT of the chest. LIVER: No splenomegaly or splenic mass. SPLEEN: The spleen is normal in size. PANCREAS: No acute abnormality of the pancreas. GALLBLADDER: The gallbladder is surgically absent. ADRENAL GLANDS: No adrenal mass or asymmetry. RIGHT KIDNEY AND URETER: No solid mass, hydronephrosis, nephrolithiasis, hydroureter or ureterolithia sis. LEFT KIDNEY AND URETER: No solid mass, hydronephrosis, nephrolithiasis, hydroureter or ureterolithias is AORTA AND VESSELS: No aneurysm or dissection of the abdominal aorta. The abdominopelvic vasculature is patent. RETROPERITONEUM: The enlarged lateral aortic, precaval, post caval, lateral caval and common iliac ly mph nodes that measure up to 13 mm in short axis diameter are unchanged. The enlarged bilateral exte rnal iliac, deep inguinal, superficial inguinal, obturator and internal iliac lymph nodes have increa sed in size ; for reference, the 2.9 x 1.9 cm right external iliac lymph node on image 59 of series 3 measured 2.6 x 1.2 cm on the prior CT, the 2.7 x 2 cm right superficial inguinal lymph node on image 69 of series 3 measured 2 x 1.3 cm on the prior CT and the 2.9 x 1.8 cm right obturator lymph node o n image 61 of series 3 measured 2.7 x 1.7 cm on the prior CT. BOWEL AND PERITONEAL CAVITY: The cluster of enlarged lymph nodes around the root of the mesentery hav e increased in size ; for reference the 1.7 x 1.4 cm lymph node on image 40 of series 3 measured 1.3 x 1 cm on the prior CT. The nodular soft tissue in the left upper quadrant is unchanged (image 32 of series 604). There is no bowel obstruction, bowel wall thickening or pericolonic / perienteric infla mmation. There is a trace amount of fluid in the right perihepatic space. APPENDIX: Unable to identify the appendix. PELVIS: The uterus is surgically absent. The wall of the urinary bladder is circumferentially thicke alverto. ABDOMINAL WALL: Unchanged dermal thickening and inflammatory subcutaneous stranding of the ventral ab dominal wall. BONES: No acute fracture or osseous lesion. OTHER: No other finding. IMPRESSION: 1. Enlarging mesenteric, external iliac, deep inguinal, superficial inguinal, obturator and internal iliac adenopathy. 2. Circumferential thickening of the wall of the urinary bladder - clinical correlation is recommend ed to exclude an acute sinusitis. 3. Unchanged soft tissue nodularity in the left upper quadrant (image 32 of series 604). 4. Other findings as detailed above. TECHNICAL DOCUMENTATION: JOB ID: [id number] Quality ID # 436: Final reports with documentation of one or more dose reduction techniques (e.g., Au tomated exposure control, adjustment of the mA and/or kV according to patient size, use of iterative reconstruction technique) 2010 [employer]- All Rights Reserved Reading location - IP/workstation name: [email or web address]
== END ==
LOC: RAD 08:44
PROVIDERS: ATTEND Internal Medicine
DX: C56.2 Malignant neoplasm of left ovary (principal)
CPT/HCPCS: 71260; 74177; 82565

== ENCOUNTER 2020-04-28 13:09 | Inpatient (IN) | payer MEDICARE, MEDICAID ==
[2020-04-28] MEDS ORDERED: NORMAL SALINE 1000 ML 1,000 ML IV ONE ×2 (13:20→20:30)
--- NOTE | 2020-04-28 13:28 | ER Document Report ---
ED General - General Stated Complaint: UNRESPONSIVE Time Seen by Provider: 04/28/20 13:17 Mode of Arrival: Medic Notes: 64 history of overdose on Xanax respiratory failure and now intubated brought to the emergency department after RSI from the physician's office. In the emergency department patient's found to be hypotensive and tachycardic. She is completely unresponsive and intubated. Patient has history of ovarian carcinoma stage IV, COPD, tobacco use disorder and prior history of small bowel obstruction. TRAVEL OUTSIDE OF THE [place] IN LAST 30 DAYS: No - Related Data Allergies/Adverse Reactions: cephalexin monohydrate [From Keflex] Allergy (Mild, Verified 11/24/19 23:16) rash Tetanus Vaccines and Toxoid [Tetanus] Allergy (Mild, Verified 11/24/19 23:16) ARM SWELLING duloxetine HCl [From Cymbalta] Allergy (Verified 11/24/19 23:16) Vomiting oxycodone HCl [From Percocet] Allergy (Verified 11/24/19 23:16) Vomiting tramadol HCl [From Ultracet] Allergy (Verified 11/24/19 23:16) Vomiting azithromycin [From Zithromax] Adverse Reaction (Intermediate, Verified 11/24/19 23:16) N/V Past Medical History - Social History Smoking Status: Smoker,Current Status Unk Family History: CAD, Hypertension, Malignancy, Other - Kidney stones, renal vascular disease. denies: CVA, DM - Past Medical History Cardiac Medical History: Reports: Hx Hypertension Denies: Hx Coronary Artery Disease, Hx Heart Attack Pulmonary Medical History: Reports: Hx Bronchitis, Hx COPD Denies: Hx Asthma, Hx Pneumonia Neurological Medical History: Denies: Hx Cerebrovascular Accident, Hx Seizures Endocrine Medical History: Denies: Hx Diabetes Mellitus Type 1, Hx Diabetes Mellitus Type 2, Hx Hyperthyroidism, Hx Hypothyroidism Renal/ Medical History: Denies: Hx Peritoneal Dialysis Malignancy Medical History: Reports: Hx Ovarian Cancer - stage IV per patient, unsure of metastasis GI Medical History: Denies: Hx Cirrhosis, Hx Hepatitis, Hx Hiatal Hernia, Hx Ulcer Musculoskeletal Medical History: Reports Hx Arthritis - GENERALIZED, Denies Hx Gout Skin Medical History: Denies Hx Eczema, Denies Hx Psoriasis Psychiatric Medical History: Reports: Hx Depression Infectious Medical History: Denies: Hx Hepatitis Past Surgical History: Reports: Hx Cholecystectomy, Hx Hysterectomy, Other - Bilateral salpingectomy and oophorectomy.. Denies: Hx Mastectomy, Hx Open Heart Surgery, Hx Pacemaker - Immunizations Hx Diphtheria, Pertussis, Tetanus Vaccination: No Review of Systems - Review of Systems -: Yes ROS unobtainable due to patient's medical condition - Patient unresponsi ve and intubated. Physical Exam - Vital signs Vitals: Resp BP Pulse Ox 14 72/56 L 100 04/28/20 13:09 04/28/20 13:09 04/28/20 13:09 - Notes Notes: PHYSICAL EXAMINATION: Physical Exam: General: Well-nourished well-developed intubated unresponsive 64-year-old woman. HEENT: NC/AT, pupils equal round poorly responsive, + doll eyes , ET tube in place. Neck: supple, no adenopathy, no masses. Good range of motion Lungs: Air movement with assisted respiration CVS: Tachycardic rate Abdomen: Soft, active, nontender, no masses, no hepatosplenomegaly Ext: No edema, clubbing or cyanosis. Neuro: Unresponsive Skin: Intact no open lesions, no rash Course - Re-evaluation Re-evalutation: 04/28/20 16:18 Patient presents with a history of respiratory failure at the oncology office, patient was intubated at the scene, continues to be a poorly responsive and unresponsive to stimuli. Poor pupillary response and + doll eyes. CT head is negative for bleed, I have discussed the patient with the podiatric technician , patient will be admitted to the ICU for further management. Patient has a history of stage IV ovarian cancer, chronic hyponatremia, COPD and chronic anemia. - Vital Signs Vital signs: Temp Pulse Resp BP Pulse Ox 98.2 F 140 H 24 H 121/75 100 04/28/20 13:30 04/28/20 13:29 04/28/20 18:15 04/28/20 18:15 04/28/20 18:23 - Laboratory Result Diagrams: 04/28/20 13:31 04/28/20 13:31 Laboratory results interpreted by me: 04/28/20 04/28/20 04/28/20 13:31 13:31 13:55 WBC 3.7 L RBC 3.24 L Hgb 9.3 L Hct 30.6 L MCHC 30.4 L RDW 20.9 H Monocytes % (Manual) 0 L Abs Monocytes (Manual) 0.0 L Carbonic Acid ABG pH ABG pCO2 ABG pO2 ABG HCO3 ABG Total CO2 ABG O2 Saturation Sodium 127.7 L Potassium 5.4 H Carbon Dioxide 18 L Est GFR (MDRD) Non-Af 54 L Glucose 197 H Calcium 7.8 L AST 130 H ALT 60 H Alkaline Phosphatase 132 H Albumin 2.6 L Urine Protein 100 H Urine Glucose (UA) 50 H Urine Blood SMALL H 04/28/20 13:57 WBC RBC Hgb Hct MCHC RDW Monocytes % (Manual) Abs Monocytes (Manual) Carbonic Acid 2.33 H ABG pH 6.89 L* ABG pCO2 77.5 H* ABG pO2 67.8 L ABG HCO3 14.5 L ABG Total CO2 16.9 L ABG O2 Saturation 76.2 L Sodium Potassium Carbon Dioxide Est GFR (MDRD) Non-Af Glucose Calcium AST ALT Alkaline Phosphatase Albumin Urine Protein Urine Glucose (UA) Urine Blood I have reviewed laboratory data and used this information for the treatment decisions regarding the patient. - Diagnostic Test Radiology reviewed: Image reviewed, Reports reviewed Radiology results interpreted by me: 04/28/20 18:47 CT head: No acute intracranial hemorrhage, no acute intracranial findings. Chest x-ray: No acute infiltrates, ET tube is in good position. - EKG Interpretation by Me Rate: Tachycardia - EKG: Sinus tachycardia, rate of 143, with poor R wave progression. Normal axis. Discharge - Discharge Clinical Impression: Respiratory arrest, Hyponatremia, Elevated liver enzymes, Acute exacerbation of chronic obstructive pulmonary disease (COPD), Chronic anemia Benzodiazepine overdose Qualifiers: Encounter type: initial encounter Injury intent: accidental or unintentional Qualified Code(s): T42.4X1A - Poisoning by benzodiazepines, accidental (unintentional), initial encounter Carcinoma of ovary, stage 4 Qualifiers: Laterality: unspecified laterality Qualified Code(s): C56.9 - Malignant neoplasm of unspecified ovary Condition: Serious Disposition: ADMITTED INPATIENT Admitting Provider: Shy (Coatings Inspector) Unit Admitted: ICU
[2020-04-28 14:06] LABS: HEMATOCRIT 30.6 % (36.0-47.0); HEMOGLOBIN 9.3 g/dL (12.0-15.5); MEAN CORPUSCULAR HEMOGLOBIN 28.7 pg (27.0-33.4); MEAN CORPUSCULAR HGB CONC 30.4 g/dL (32.0-36.0); MEAN CORPUSCULAR VOLUME 95 fl (80-97); PLATELET COUNT 396 10^3/uL (150-450); RED BLOOD COUNT 3.24 10^6/uL (3.72-5.28); RED CELL DISTRIBUTION WIDTH 20.9 % (11.5-14.0); WHITE BLOOD COUNT 3.7 10^3/uL (4.0-10.5)
--- NOTE | 2020-04-28 14:20 | RADIOLOGY REPORT (SQ) ---
EXAM DESCRIPTION: CHEST SINGLE VIEW IMAGES COMPLETED DATE/TIME: 04/28/2020 1:53 pm REASON FOR STUDY: Post intubation, SOB, OG TUBE PLACEMENT COMPARISON: 03/26/2019 EXAM PARAMETERS: NUMBER OF VIEWS: One view. TECHNIQUE: Single frontal radiographic view of the chest acquired. RADIATION DOSE: NA LIMITATIONS: None. FINDINGS: LUNGS AND PLEURA: No opacities, masses or pneumothorax. No pleural effusion. MEDIASTINUM AND HILAR STRUCTURES: No masses. Contour normal. HEART AND VASCULAR STRUCTURES: Heart normal in size. Normal vasculature. BONES: No acute findings. HARDWARE: Endotracheal tube. Injection port on the right. Oral gastric tube extends into the stomac h. The tip of the tube touches the greater curvature. OTHER: No other significant finding. IMPRESSION: Tube placement. TECHNICAL DOCUMENTATION: JOB ID: [id number] 2010 [employer]- All Rights Reserved Reading location - IP/workstation name: [email or web address]
[2020-04-28 14:24] LABS: ALBUMIN 2.6 g/dL (3.5-5.0); ALKALINE PHOSPHATASE 132 U/L (38-126); ANION GAP 11 (5-19); ASPARTATE AMINO TRANSFERASE 130 U/L (14-36); BILIRUBIN,TOTAL 0.3 mg/dL (0.2-1.3); BLOOD UREA NITROGEN 9 mg/dL (7-20); CALCIUM 7.8 mg/dL (8.4-10.2); CARBON DIOXIDE 18 mmol/L (22-30); CHLORIDE 99 mmol/L (98-107); GLUCOSE 197 mg/dL (75-110); POTASSIUM 5.4 mmol/L (3.6-5.0); TOTAL PROTEIN 6.4 g/dL (6.3-8.2)
[2020-04-28 14:52] LABS: APPEARANCE,URINE SLIGHTLY-CLOUDY; BILIRUBIN,URINE NEGATIVE (NEGATIVE); COLOR,URINE YELLOW; GLUCOSE, URINE 50 mg/dL (NEGATIVE); KETONES,URINE NEGATIVE (NEGATIVE); PROTEIN,URINE 100 mg/dL (NEGATIVE); URINE SPECIFIC GRAVITY 1.011; UROBILINOGEN,URINE NEGATIVE mg/dL (<2.0)
[2020-04-28 15:11] LABS: ABSOLUTE LYMPHOCYTES# (MANUAL) 1.6 10^3/uL (0.5-4.7); BAND NEUTROPHILS % (MANUAL) 4 % (3-5); BASOPHILS % (MANUAL) 1 % (0-2); EOSINOPHILS % (MANUAL) 2 % (0-6); LYMPHOCYTES % (MANUAL) 37 % (13-45); METAMYELOCYTES % (MANUAL) 1 % (0-1); MONOCYTES % (MANUAL) 0 % (3-13); SEGMENTED NEUTROPHILS % (MAN) 50 % (42-78); TOTAL CELLS COUNTED 100
[2020-04-28 15:12] LABS: ANISOCYTOSIS 3+; POLYCHROMASIA SLIGHT
[2020-04-28 15:13] LABS: PLATELET COMMENT ADEQUATE
[2020-04-28 15:19] LABS: URINE AMPHETAMINES SCREEN NEGATIVE; URINE BARBITURATES SCREEN NEGATIVE; URINE COCAINE SCREEN NEGATIVE; URINE MARIJUANA (THC) SCREEN NEGATIVE; URINE METHADONE SCREEN NEGATIVE; URINE PHENCYCLIDINE SCREEN NEGATIVE
[2020-04-28 15:30] LABS: URINE BENZODIAZEPINES SCREEN UNCONFIRMED POSITIVE
--- NOTE | 2020-04-28 15:37 | RADIOLOGY REPORT (SQ) ---
EXAM DESCRIPTION: CT HEAD WITHOUT IMAGES COMPLETED DATE/TIME: 04/28/2020 3:15 pm REASON FOR STUDY: Unresponsiveness COMPARISON: None. TECHNIQUE: Axial images acquired through the brain without intravenous contrast. Images reviewed wi th bone, brain and subdural windows. Additional sagittal and coronal reconstructions were generated. Images stored on PACS. All CT scanners at this facility use dose modulation, iterative reconstruction, and/or weight based d osing when appropriate to reduce radiation dose to as low as reasonably achievable (ALARA). [facility]: Dose Right [facility]: CareDose [facility]: Dose Right [facility]: Teradose 4D [facility]: [employer] RADIATION DOSE: CT Rad equipment meets quality standard of care and radiation dose reduction techniq ues were employed. CTDIvol: 53.2 mGy. DLP: 1017 mGy-cm. LIMITATIONS: None. FINDINGS: There is no acute intracranial hemorrhage, vascular territorial infarct, extra-axial fluid collection, mass effect or midline shift. The max-white matter differentiation is preserved. Ther e is no effacement of the cerebral sulci or basal subarachnoid cisterns. The caliber of the ventricl es is concordant with the degree of sulcation. The globes are aphakic. The orbits are intact. The paranasal sinuses are clear. There is no fractu re of the calvarium. There are endotracheal and oroenteric tubes in place. IMPRESSION: No acute intracranial abnormality. EVIDENCE OF ACUTE STROKE: NO. COMMENT: Quality ID # 436: Final reports with documentation of one or more dose reduction techniques (e.g., Automated exposure control, adjustment of the mA and/or kV according to patient size, use of iterative reconstruction technique) TECHNICAL DOCUMENTATION: JOB ID: [id number] 2010 [employer]- All Rights Reserved Reading location - IP/workstation name: [id number]
[2020-04-28] MEDS ORDERED: ALBUTEROL SULFATE 0.083% NEB 2.5 MG/3 ML AMPUL NEB PRN (16:10)
[2020-04-28] MEDS ORDERED: PROPOFOL 1,000 MG/100 ML INFUS..BTL IV PRN (16:10)
[2020-04-28] MEDS ORDERED: PHARMACY COMMUNICATION ORDER MC NR (16:15)
[2020-04-28] MEDS ORDERED: ENOXAPARIN SODIUM INJ 40 MG/0.4 ML DISP.SYRIN SUBCUT SCH (16:30)
--- NOTE | 2020-04-28 16:34 | CRITICAL CARE ADMISSION REPORT ---
HPI Date:: 04/28/20 Time:: 15:00 Reason for ICU Reason:: Intubated and not responsive. Admission Date/Time & PCP: Admission Date/Time: Primary Care Provider: KELSEY TAVERA MD HPI: This patient is a 64 y[address] with [address] IV ovarian cancer who was in her oncologists office and felt anxious. Took ativan. One report says i pill, another report unknown amount. Not intentional. Intubated in the office. Said to have a 5mm pupil on L. In ed both 2mm. However there is no cough, gag corneal reflex. She received rocuronium and etomidate and with an unknown quantity of benzodiazepines it too early to invoke brain especially since we do not have a definite cause. History obtained from:: ED MD Rodriguez and old records. - Diagnosis/Plan (1) Benzodiazepine overdose Qualifiers: Encounter type: initial encounter Injury intent: accidental or unintentional Qualified Code(s): T42.4X1A - Poisoning by benzodiazepines, accidental (unintentional), initial encounter Is this a current diagnosis for this admission?: Yes Plan: This is the presumed diagnosis and until shown other godinez will proceed as such with the need for airway protection. (2) Carcinoma of ovary, stage 4 Qualifiers: Laterality: unspecified laterality Qualified Code(s): C56.9 - Malignant neoplasm of unspecified ovary Is this a current diagnosis for this admission?: Yes Plan: Being treated as an out patient (3) Elevated liver enzymes Is this a current diagnosis for this admission?: Yes Plan: Very mild and likely related to CTX (4) Hyponatremia Is this a current diagnosis for this admission?: Yes Plan: Level at 127. Will provide NS for IVF Plan Summary: She will be maintained with intubation for now. Past Medical History Cardiac Medical History: Reports: Hypertension Denies: Coronary Artery Disease, Myocardial Infarction Pulmonary Medical History: Reports: Bronchitis, Chronic Obstructive Pulmonary Disease (COPD) Denies: Asthma, Pneumonia Neurological Medical History: Denies: Seizures Endocrine Medical History: Denies: Diabetes Mellitus Type 1, Diabetes Mellitus Type 2, Hyperthyroidism, Hypothyroidism Malignancy Medical History: Reports: Ovarian Cancer - stage IV per patient, unsure of metastasis GI Medical History: Denies: Cirrhosis, Hepatitis, Hiatal Hernia Musculoskeltal Medical History: Reports: Arthritis - GENERALIZED Denies: Gout Skin Medical History: Denies: Eczema, Psoriasis Psychiatric Medical History: Reports: Depression Hematology: Denies: Anemia, Sickle Cell Disease Past Surgical History Past Surgical History: Reports: Cholecystectomy, Hysterectomy, Other - Bilateral salpingectomy and oophorectomy. Denies: Amputation - GLASSES, Mastectomy, Pacemaker Social/Family History - Social History Smoking Status: Unknown if Ever Smoked Frequency of Alcohol Use: None Hx Recreational Drug Use: No Drugs: None Hx Prescription Drug Abuse: No - Medication/Allergies Home Medications: Albuterol Sulfate [Ventolin Hfa 8 gm Mdi (1 Mdi/ER Disp)] 2 puff IH Q6HP PRN 02/26/19 Alprazolam [Xanax 0.5 mg Tablet] 0.5 mg PO Q8HP PRN 02/26/19 Lisinopril [Prinivil 40 mg Tablet] 40 mg PO QAM 02/26/19 Umeclidinium Brm/Vilanterol Tr [Anoro Ellipta 62.5-25 Mcg INH] 1 puff IH DAILY 02/26/19 Famotidine [Pepcid AC] 20 mg PO DAILY 06/21/19 Hydroxyzine HCl [Atarax 10 mg Tablet] 25 mg PO Q8HP PRN 04/28/20 Lidocaine [Lidoderm 5% (700 mg) Transdermal Patch] 1 patch TOP DAILY 04/28/20 Ondansetron HCl [Zofran 8 mg Tablet] 8 mg PO Q8HP PRN 04/28/20 Allergies/Adverse Reactions: cephalexin monohydrate [From Keflex] Allergy (Mild, Verified 11/24/19 23:16) rash Tetanus Vaccines and Toxoid [Tetanus] Allergy (Mild, Verified 11/24/19 23:16) ARM SWELLING duloxetine HCl [From Cymbalta] Allergy (Verified 11/24/19 23:16) Vomiting oxycodone HCl [From Percocet] Allergy (Verified 11/24/19 23:16) Vomiting tramadol HCl [From Ultracet] Allergy (Verified 11/24/19 23:16) Vomiting azithromycin [From Zithromax] Adverse Reaction (Intermediate, Verified 11/24/19 23:16) N/V Review of Systems ROS unobtainable: Due to endotracheal tube, Due to mental status Physical Exam Vital Signs: Temp Pulse Resp BP Pulse Ox 98.2 F 140 H 14 147/89 H 99 04/28/20 13:30 04/28/20 13:29 04/28/20 15:25 04/28/20 15:25 04/28/20 15:25 Intake & Output 04/27/20 04/28/20 04/29/20 06:59 06:59 06:59 Intake Total 1000 Balance 1000 Weight 69.4 kg Weight/Height Weight 69.4 kg General appearance: PRESENT: no acute distress Head exam: PRESENT: atraumatic, normocephalic Eye exam: PRESENT: other - No doll's eyes response, no corneal reflex. Pupils 2mm bilaterally Mouth exam: PRESENT: dry mucosa Respiratory exam: PRESENT: clear to auscultation krissy. ABSENT: rales, rhonchi, wheezes Cardiovascular exam: PRESENT: tachycardia Vascular exam: PRESENT: normal capillary refill GI/Abdominal exam: PRESENT: normal bowel sounds, soft. ABSENT: distended, guarding, mass, organolmegaly, rebound, tenderness Rectal exam: PRESENT: deferred Gentrourinary exam: PRESENT: indwelling catheter Extremities exam: PRESENT: full ROM. ABSENT: clubbing, pedal edema Musculoskeletal exam: PRESENT: normal inspection Neurological exam: PRESENT: other - Unresponsive. Tubes/Lines: PRESENT: Endotracheal Tube, Nasogastic Tube Laboratory/Radiographs Laboratory Results: 04/28/20 13:31 04/28/20 13:31 04/28/20 04/28/20 04/28/20 13:31 13:31 13:55 WBC 3.7 L RBC 3.24 L Hgb 9.3 L Hct 30.6 L MCV 95 MCH 28.7 MCHC 30.4 L RDW 20.9 H Plt Count 396 Seg Neutrophils % Not Reportable Sodium 127.7 L Potassium 5.4 H Chloride 99 Carbon Dioxide 18 L Anion Gap 11 BUN 9 Creatinine 1.02 Est GFR ( Amer) > 60 Glucose 197 H Calcium 7.8 L Magnesium 2.0 Total Bilirubin 0.3 AST 130 H Alkaline Phosphatase 132 H Total Protein 6.4 Albumin 2.6 L Urine Color YELLOW Urine Appearance SLIGHTLY-CLOUDY Urine pH 7.0 Ur Specific [place] 1.011 Urine Protein 100 H Urine Glucose (UA) 50 H Urine Ketones NEGATIVE Urine Blood SMALL H Urine RBC (Auto) 7 Impressions: Chest X-Ray 04/28/20 13:19 IMPRESSION: Tube placement. Head CT 04/28/20 14:40 IMPRESSION: No acute intracranial abnormality. EVIDENCE OF ACUTE STROKE: NO. EKG: ST All labs, radiographs, diagnostic studies and EKGs were personally reviewed: Yes In addition, reports of radiographic and diagnostic studies were read: Yes Critical Time Critical Time (minutes): 40 -: The care of a critically ill patient is dynamic. This note represents a static moment in the admission process. Orders and treatments may be given simultaneously and urgently, and time is not healthcare sales representative of the treatment pr ocess. This patient requires Critical Care secondary to life threatening organ or limb dysfunction. Without Critical Care services, the patient is at risk for increased mortality and morbidity.
[2020-04-28] MEDS: NORMAL SALINE 1000 ML 1,000 ML IV PRN (17:01)
[2020-04-28] MEDS: FAMOTIDINE INJ/PF 20 MG/2 ML SDV IV SCH (17:07)
[2020-04-28 18:21] LABS: ARTERIAL BLOOD BASE EXCESS -19.2 mmol/L; ARTERIAL BLOOD H2CO3 2.33 mmol/L (1.05-1.35); ARTERIAL BLOOD HCO3 14.5 mmol/L (20-24); ARTERIAL BLOOD O2 SATURATION 76.2 % (94-98); ARTERIAL BLOOD PO2 67.8 mmHg (80-100); ARTERIAL BLOOD TOTAL CO2 16.9 mmol/L (21-25)
[2020-04-28 18:22] LABS: ARTERIAL BLOOD FIO2 AO
[2020-04-28 18:25] LABS: ARTERIAL BLOOD PCO2 77.5 mmHg (35-45); ARTERIAL BLOOD PH 6.89 (7.35-7.45)
[2020-04-28 19:17] LABS: ARTERIAL BLOOD H2CO3 1.61 mmol/L (1.05-1.35); ARTERIAL BLOOD HCO3 17.8 mmol/L (20-24); ARTERIAL BLOOD O2 SATURATION 97.7 % (94-98); ARTERIAL BLOOD PCO2 53.4 mmHg (35-45); ARTERIAL BLOOD PO2 131.4 mmHg (80-100); ARTERIAL BLOOD TOTAL CO2 19.5 mmol/L (21-25)
[2020-04-28 19:19] LABS: ARTERIAL BLOOD FIO2 40%
[2020-04-28 19:20] LABS: ARTERIAL BLOOD PH 7.14 (7.35-7.45)
[2020-04-28] MEDS ORDERED: NORMAL SALINE 1000 ML 500 ML IV ONE (19:52)
[2020-04-28 20:18] LABS: ANION GAP 6 (5-19); BLOOD UREA NITROGEN 16 mg/dL (7-20); CALCIUM 7.3 mg/dL (8.4-10.2); CARBON DIOXIDE 21 mmol/L (22-30); CHLORIDE 101 mmol/L (98-107); GLUCOSE 170 mg/dL (75-110); PHOSPHORUS 5.8 mg/dL (2.5-4.5); POTASSIUM 5.1 mmol/L (3.6-5.0)
[2020-04-28] MEDS ORDERED: DEXMEDETOMIDINE IN 0.9 % NACL 400 MCG/100 ML RTUPB IV PRN (20:32)
[2020-04-28] MEDS ORDERED: DEXMEDETOMIDINE IN 0.9 % NACL 400 MCG/100 ML RTUPB IV ONE (20:33)
[2020-04-28] MEDS: ENOXAPARIN SODIUM INJ 40 MG/0.4 ML DISP.SYRIN SUBCUT SCH (21:22)
[2020-04-28 23:38] LABS: ARTERIAL BLOOD BASE EXCESS -10.3 mmol/L; ARTERIAL BLOOD FIO2 40%; ARTERIAL BLOOD O2 SATURATION 98.3 % (94-98); ARTERIAL BLOOD PCO2 43.3 mmHg (35-45); ARTERIAL BLOOD PH 7.21 (7.35-7.45); ARTERIAL BLOOD PO2 141.6 mmHg (80-100); ARTERIAL BLOOD TOTAL CO2 18.3 mmol/L (21-25)
[2020-04-29] MEDS ORDERED: NORMAL SALINE 1000 ML 1,000 ML IV ONE (00:17)
--- NOTE | 2020-04-29 00:23 | EKG REPORT ---
SEVERITY:- ABNORMAL ECG - SINUS TACHYCARDIA ANTERIOR INFARCT, AGE INDETERMINATE : Confirmed by: Cathi Stevens 29-Apr-2020 00:22:41
[2020-04-29] MEDS: NORMAL SALINE 1000 ML 1,000 ML IV PRN (00:33)
[2020-04-29 03:02] LABS: HEMATOCRIT 24.2 % (36.0-47.0); MEAN CORPUSCULAR HGB CONC 31.6 g/dL (32.0-36.0); MEAN CORPUSCULAR VOLUME 92 fl (80-97); PLATELET COUNT 264 10^3/uL (150-450); RED BLOOD COUNT 2.64 10^6/uL (3.72-5.28); WHITE BLOOD COUNT 6.2 10^3/uL (4.0-10.5)
[2020-04-29 03:08] LABS: ALKALINE PHOSPHATASE 85 U/L (38-126); ASPARTATE AMINO TRANSFERASE 85 U/L (14-36); BILIRUBIN,TOTAL 0.2 mg/dL (0.2-1.3); BLOOD UREA NITROGEN 17 mg/dL (7-20); GLUCOSE 99 mg/dL (75-110); PHOSPHORUS 5.1 mg/dL (2.5-4.5); POTASSIUM 4.6 mmol/L (3.6-5.0); TOTAL PROTEIN 5.1 g/dL (6.3-8.2)
[2020-04-29 03:13] LABS: CARBON DIOXIDE 19 mmol/L (22-30); CHLORIDE 107 mmol/L (98-107)
[2020-04-29 03:14] LABS: ANION GAP 4 (5-19)
[2020-04-29 03:16] LABS: CALCIUM 6.5 mg/dL (8.4-10.2)
[2020-04-29 03:31] LABS: HEMOGLOBIN 7.7 g/dL (12.0-15.5)
[2020-04-29 03:34] LABS: ABSOLUTE LYMPHOCYTES# (MANUAL) 0.4 10^3/uL (0.5-4.7); ABSOLUTE MONOCYTES # (MANUAL) 0.2 10^3/uL (0.1-1.4); BAND NEUTROPHILS % (MANUAL) 3 % (3-5); BASOPHILS % (MANUAL) 0 % (0-2); EOSINOPHILS % (MANUAL) 0 % (0-6); LYMPHOCYTES % (MANUAL) 6 % (13-45); MONOCYTES % (MANUAL) 3 % (3-13); SEGMENTED NEUTROPHILS % (MAN) 88 % (42-78); TOTAL CELLS COUNTED 100
[2020-04-29 03:37] LABS: ANISOCYTOSIS 3+; POIKILOCYTOSIS 3+; TOXIC GRANULATION 1+; TOXIC VACUOLATION PRESENT
[2020-04-29 03:38] LABS: BURR CELLS SLIGHT; OVALOCYTES 1+; PLATELET COMMENT ADEQUATE; SCHISTOCYTES 2+; TEAR DROP CELLS 1+
[2020-04-29 03:47] LABS: ARTERIAL BLOOD H2CO3 1.18 mmol/L (1.05-1.35); ARTERIAL BLOOD HCO3 17.3 mmol/L (20-24); ARTERIAL BLOOD PCO2 39.3 mmHg (35-45); ARTERIAL BLOOD PH 7.26 (7.35-7.45); ARTERIAL BLOOD TOTAL CO2 18.5 mmol/L (21-25)
[2020-04-29 03:50] LABS: ARTERIAL BLOOD FIO2 30%
[2020-04-29] MEDS: MAGNESIUM SULFATE/D5W 1 GM/100 ML RTUPB IV SCH ×4 (03:53→06:45)
[2020-04-29] MEDS: RINGERS SOLUTION,LACTATED 1,000 ML IV PRN ×2 (04:15→11:05)
[2020-04-29] MEDS: FAMOTIDINE INJ/PF 20 MG/2 ML SDV IV SCH ×2 (05:40→20:59)
[2020-04-29] MEDS: ENOXAPARIN SODIUM INJ 40 MG/0.4 ML DISP.SYRIN SUBCUT SCH (10:04)
[2020-04-29] MEDS: LIDOCAINE 5% (700 MG) TRANSDERMAL ADH..PATCH TOP SCH (10:04)
[2020-04-29 10:54] LABS: ARTERIAL BLOOD BASE EXCESS -8.2 mmol/L; ARTERIAL BLOOD H2CO3 1.26 mmol/L (1.05-1.35); ARTERIAL BLOOD HCO3 18.4 mmol/L (20-24); ARTERIAL BLOOD O2 SATURATION 92.9 % (94-98); ARTERIAL BLOOD PCO2 41.9 mmHg (35-45); ARTERIAL BLOOD PH 7.26 (7.35-7.45); ARTERIAL BLOOD PO2 74.3 mmHg (80-100); ARTERIAL BLOOD TOTAL CO2 19.7 mmol/L (21-25)
[2020-04-29 10:55] LABS: ARTERIAL BLOOD FIO2 ROOM AIR
[2020-04-29] MEDS ORDERED: ONDANSETRON HCL 8 MG TABLET PO PRN (12:34)
[2020-04-29] MEDS ORDERED: ALPRAZOLAM 0.5 MG TABLET PO PRN ×2 (12:34→15:19)
[2020-04-29] MEDS ORDERED: FUROSEMIDE INJ/PF 40 MG/4 ML SDV IV ONE (12:36)
[2020-04-29] MEDS ORDERED: ONDANSETRON HCL INJ/PF 4 MG/2 ML SDV IV PRN (12:50)
[2020-04-29] MEDS: LISINOPRIL 10 MG TABLET PO SCH (13:18)
[2020-04-29] MEDS: ACETAMINOPHEN 325 MG TABLET NG PRN (13:19)
[2020-04-29] MEDS ORDERED: LIDOCAINE 5% (700 MG) TRANSDERMAL ADH..PATCH TOP SCH (13:30)
--- NOTE | 2020-04-29 14:15 | PDOC CRITICAL CARE PROG REPORT ---
General Date:: 04/29/20 ICU Day:: 2 Hospital Day:: 2 Resuscitation Status: Full Code Events in the past 12 to 24 Hours:: 04/29: Admitted 04/28 with presumed benzodiazepine adverse reaction: Respiratory suppression. Successfully extubated in the interim. On room air. Complains of reproducible chest pain, owing to chest compressions for CPR. Review of systems relevant to events:: Neurologic: altered mental status Endocrine: chronic hyponatremia Hem/Onc: stage IV ovarian ca. Reason for ICU Addmission:: Intubated and not responsive. - Medications: Medications reviewed and adjusted accordingly: Yes Physical Exam Vital Signs: Temp Pulse Resp BP Pulse Ox 96.6 F L 85 18 145/69 H 96 04/28/20 19:34 04/29/20 07:30 04/29/20 04:30 04/29/20 12:00 04/29/20 12:01 Intake & Output 04/28/20 04/29/20 04/30/20 06:59 06:59 06:59 Intake Total 4969 1000 Output Total 305 345 Balance 4664 655 Weight 62.2 kg Weight/Height Weight 62.2 kg Height 1.73 m General appearance: PRESENT: no acute distress, well-developed, well-nourished Head exam: PRESENT: atraumatic, normocephalic Eye exam: PRESENT: conjunctiva pink, EOMI, PERRLA. ABSENT: scleral icterus Mouth exam: PRESENT: moist, tongue midline Neck exam: PRESENT: JVD. ABSENT: carotid bruit, lymphadenopathy, thyromegaly Respiratory exam: PRESENT: crackles, rales. ABSENT: rhonchi, wheezes Cardiovascular exam: PRESENT: RRR. ABSENT: diastolic murmur, rubs, systolic murmur Pulses: PRESENT: normal dorsalis pedis pul GI/Abdominal exam: PRESENT: normal bowel sounds, soft. ABSENT: distended, guarding, mass, organolmegaly, rebound, tenderness Extremities exam: PRESENT: full ROM. ABSENT: calf tenderness, clubbing, pedal edema Neurological exam: PRESENT: alert, awake, oriented to person, oriented to place, oriented to time, oriented to situation, CN II-XII grossly intact. ABSENT: motor sensory deficit Psychiatric exam: PRESENT: anxious, normal mood. ABSENT: homicidal ideation, suicidal ideation Laboratory/Radiographs Laboratory Results: 04/29/20 02:37 04/29/20 02:37 04/28/20 04/28/20 04/28/20 13:31 13:31 13:55 WBC 3.7 L RBC 3.24 L Hgb 9.3 L Hct 30.6 L MCV 95 MCH 28.7 MCHC 30.4 L RDW 20.9 H Plt Count 396 Seg Neutrophils % Not Reportable Carbonic Acid HCO3/H2CO3 Ratio ABG pH ABG pCO2 ABG pO2 ABG HCO3 ABG O2 Saturation ABG Base Excess FiO2 Sodium 127.7 L Potassium 5.4 H Chloride 99 Carbon Dioxide 18 L Anion Gap 11 BUN 9 Creatinine 1.02 Est GFR ( Amer) > 60 Glucose 197 H Calcium 7.8 L Ionized Calcium Inés Phosphorus Magnesium 2.0 Total Bilirubin 0.3 AST 130 H Alkaline Phosphatase 132 H Total Protein 6.4 Albumin 2.6 L Urine Color YELLOW Urine Appearance SLIGHTLY-CLOUDY Urine pH 7.0 Ur Specific [place] 1.011 Urine Protein 100 H Urine Glucose (UA) 50 H Urine Ketones NEGATIVE Urine Blood SMALL H Urine RBC (Auto) 7 04/28/20 04/28/20 04/28/20 13:57 18:50 19:56 WBC RBC Hgb Hct MCV MCH MCHC RDW Plt Count Seg Neutrophils % Carbonic Acid 2.33 H 1.61 H HCO3/H2CO3 Ratio 6:1 11:1 ABG pH 6.89 L* 7.14 L* ABG pCO2 77.5 H* 53.4 H ABG pO2 67.8 L 131.4 H ABG HCO3 14.5 L 17.8 L ABG O2 Saturation 76.2 L 97.7 ABG Base Excess -19.2 -11.0 FiO2 AO 40% Sodium 127.8 L Potassium 5.1 H Chloride 101 Carbon Dioxide 21 L Anion Gap 6 BUN 16 Creatinine 0.97 Est GFR ( Amer) > 60 Glucose 170 H Calcium 7.3 L Ionized Calcium Inés Phosphorus 5.8 H Magnesium Total Bilirubin AST Alkaline Phosphatase Total Protein Albumin Urine Color Urine Appearance Urine pH Ur Specific [place] Urine Protein Urine Glucose (UA) Urine Ketones Urine Blood Urine RBC (Auto) 04/28/20 04/29/20 04/29/20 23:10 02:37 02:37 WBC 6.2 RBC 2.64 L Hgb 7.7 L Hct 24.2 L MCV 92 MCH 29.0 MCHC 31.6 L RDW 21.0 H Plt Count 264 Seg Neutrophils % Not Reportable Carbonic Acid 1.30 HCO3/H2CO3 Ratio 13:1 ABG pH 7.21 L ABG pCO2 43.3 ABG pO2 141.6 H ABG HCO3 17.0 L ABG O2 Saturation 98.3 H ABG Base Excess -10.3 FiO2 40% Sodium 130.4 L Potassium 4.6 Chloride 107 Carbon Dioxide 19 L Anion Gap 4 L BUN 17 Creatinine 0.83 Est GFR ( Amer) > 60 Glucose 99 Calcium 6.5 L* Ionized Calcium Inés Phosphorus 5.1 H Magnesium 1.5 L Total Bilirubin 0.2 AST 85 H Alkaline Phosphatase 85 Total Protein 5.1 L Albumin 2.0 L Urine Color Urine Appearance Urine pH Ur Specific [place] Urine Protein Urine Glucose (UA) Urine Ketones Urine Blood Urine RBC (Auto) 04/29/20 04/29/20 03:39 10:40 WBC RBC Hgb Hct MCV MCH MCHC RDW Plt Count Seg Neutrophils % Carbonic Acid 1.18 1.26 HCO3/H2CO3 Ratio 14:1 14:1 ABG pH 7.26 L 7.26 L ABG pCO2 39.3 41.9 ABG pO2 104.0 H 74.3 L ABG HCO3 17.3 L 18.4 L ABG O2 Saturation 97.0 92.9 L ABG Base Excess -9.0 -8.2 FiO2 30% ROOM AIR Sodium Potassium Chloride Carbon Dioxide Anion Gap BUN Creatinine Est GFR ( Amer) Glucose Calcium Ionized Calcium Inés 1.02 L Phosphorus Magnesium Total Bilirubin AST Alkaline Phosphatase Total Protein Albumin Urine Color Urine Appearance Urine pH Ur Specific [place] Urine Protein Urine Glucose (UA) Urine Ketones Urine Blood Urine RBC (Auto) Impressions: Chest X-Ray 04/28/20 13:19 IMPRESSION: Tube placement. Head CT 04/28/20 14:40 IMPRESSION: No acute intracranial abnormality. EVIDENCE OF ACUTE STROKE: NO. All labs, radiographs, diagnostic studies and EKGs were personally reviewed: Yes In addition, reports of radiographic and diagnostic studies were read: Yes Assessment and Plan - Diagnosis (1) Adverse effect of benzodiazepine Qualifiers: Encounter type: subsequent encounter Qualified Code(s): T42.4X5D - Adverse effect of benzodiazepines, subsequent encounter Is this a current diagnosis for this admission?: Yes Plan: Restart Xanax 0.5 mg p.o. 3 times daily as needed. Of note, the patient reports that she typically takes half of this dosage. (2) Volume overload Qualifiers: Hypervolemia type: other Qualified Code(s): E87.79 - Other fluid overload Is this a current diagnosis for this admission?: Yes Plan: Furosemide 40 mg IV single dose today. (3) Chronic anemia Is this a current diagnosis for this admission?: Yes (4) Elevated liver enzymes Is this a current diagnosis for this admission?: Yes Plan: Monitor LFTs (5) Hyponatremia Is this a current diagnosis for this admission?: Yes Plan: Monitor serum sodium. (6) Tobacco use disorder, severe, dependence Is this a current diagnosis for this admission?: Yes Plan: Patient was offered transdermal nicotine. She declined. (7) Costochondral chest pain Is this a current diagnosis for this admission?: Yes Plan: Tylenol as needed. Critical Time Critical Time (minutes): 45 Level of Care: ICU -: 1. The care of a critical patient is a dynamic process. This note is a employee relations representative synopsis but static in nature. The timeframe for treatments given in order is not necessarily the actual time these treatments may have been done. 2. This patient requires critical care secondary to ongoing requirements for therapy not offered or safe outside the critical care environment. Transfer to a lower level of care will result in altered life or limb morbidity and mortality. 3. Multidisciplinary rounds completed. 4. ABCDE bundle addressed.
--- NOTE | 2020-04-29 14:47 | PDOC CONSULTATION ---
Consultation Consult Date: 04/29/20 Provider Consulted: RIYA BATRES Consult reason:: Hematology/Oncology consultation was requested for patient who had a severe reaction during her chemo infusion yesterday. History of Present Illness Admission Date/PCP: 04/28/20 16:30 KELSEY TAVERA MD History of Present Illness: SHAWANDA ZHANG is a 64 year old female with Stage IV ovarian cancer. She had completed her dose of paclitaxel and was receiving her carboplatin when she became unconscious. CPR was performed and patient was transferred to the hospital. Of note, she states today that she had taken 1/2 of her anxiety medication and used her inhaler just prior to this. She was NOT given any sedative agents or benzodiazapines. She received her regular dose of 50 mg IV benadryl and 10 mg Dexamethasone prior to chemo. She was extubated this morning and today states that she is very sore and bruised from the trauma of yesterday. Otherwise, she is hoping they will let her eat and get up today. Past Medical History Cardiac Medical History: Reports: Hypertension Denies: Coronary Artery Disease, Myocardial Infarction Pulmonary Medical History: Reports: Bronchitis, Chronic Obstructive Pulmonary Disease (COPD) Denies: Asthma, Pneumonia Neurological Medical History: Denies: Seizures Endocrine Medical History: Denies: Diabetes Mellitus Type 1, Diabetes Mellitus Type 2, Hyperthyroidism, Hypothyroidism Malignancy Medical History: Reports: Ovarian Cancer - stage IV per patient, unsure of metastasis GI Medical History: Reports: Ulcerative Colitis Denies: Cirrhosis, Hepatitis, Hiatal Hernia Musculoskeltal Medical History: Reports: Arthritis - GENERALIZED Denies: Gout Skin Medical History: Denies: Eczema, Psoriasis Psychiatric Medical History: Reports: Depression, General Anxiety Disorder Hematology: Denies: Anemia, Sickle Cell Disease Past Surgical History Past Surgical History: Reports: Cholecystectomy, Hysterectomy, Other - Bilateral salpingectomy and oophorectomy. Paracentesis Denies: Amputation - GLASSES, Mastectomy, Pacemaker Social History Smoking Status: Current Every Day Smoker Frequency of Alcohol Use: None Amount of Alcoholic Beverages Per Day: quit alcohol 2 years ago Hx Recreational Drug Use: No Drugs: None Hx Prescription Drug Abuse: No - Advance Directive Resuscitation Status: Full Code Family History Family History: CAD, Hypertension, Malignancy, Other - Kidney stones, renal vascular disease. denies: CVA, DM Parental Family History Reviewed: Yes - mother of myelofibrosis. Father of cancer Children Family History Reviewed: No Sibling(s) Family History Reviewed.: Yes Medication/Allergy Home Medications: Alprazolam [Xanax 0.5 mg Tablet] 0.5 mg PO Q8HP PRN 02/26/19 Lisinopril [Prinivil 40 mg Tablet] 40 mg PO QAM 02/26/19 Umeclidinium Brm/Vilanterol Tr [Anoro Ellipta 62.5-25 Mcg INH] 1 puff IH DAILY 02/26/19 Albuterol Sulfate [Ventolin Hfa 8 gm Mdi] 2 puff IH Q4HP PRN 04/28/20 Famotidine [Pepcid] 20 mg PO DAILY 04/28/20 Hydroxyzine HCl [Atarax 10 mg Tablet] 25 mg PO Q8HP PRN 04/28/20 Lidocaine [Lidoderm 5% (700 mg) Transdermal Patch] 1 patch TOP DAILY 04/28/20 Linaclotide [Linzess 145 Mcg Capsule] 145 mcg PO DAILY 04/28/20 Ondansetron HCl [Zofran 8 mg Tablet] 8 mg PO Q8HP PRN 04/28/20 Allergies/Adverse Reactions: cephalexin monohydrate [From Keflex] Allergy (Mild, Verified 04/29/20 07:45) rash Tetanus Vaccines and Toxoid [Tetanus] Allergy (Mild, Verified 04/29/20 07:45) ARM SWELLING duloxetine HCl [From Cymbalta] Allergy (Verified 04/29/20 07:45) Vomiting oxycodone HCl [From Percocet] Allergy (Verified 04/29/20 07:45) Vomiting tramadol HCl [From Ultracet] Allergy (Verified 04/29/20 07:45) Vomiting azithromycin [From Zithromax] Adverse Reaction (Intermediate, Verified 04/29/20 07:45) N/V Review of Systems Constitutional: ABSENT: fever(s) Eyes: ABSENT: visual disturbances Ears: ABSENT: hearing changes Nose, Mouth, and Throat: ABSENT: sore throat Cardiovascular: PRESENT: chest pain Gastrointestinal: ABSENT: nausea Genitourinary: ABSENT: dysuria Integumentary: ABSENT: rash Neurological: PRESENT: weakness Hematologic/Lymphatic: PRESENT: easy bruising Physical Exam Vital Signs: Temp Pulse Resp BP Pulse Ox 96.6 F L 85 18 132/65 H 95 04/28/20 19:34 04/29/20 07:30 04/29/20 04:30 04/29/20 14:00 04/29/20 14:01 Intake & Output 04/28/20 04/29/20 04/30/20 06:59 06:59 06:59 Intake Total 4969 1350 Output Total 305 925 Balance 4664 425 Weight 62.2 kg General appearance: PRESENT: no acute distress, well-developed, well-nourished Head exam: PRESENT: normocephalic Eye exam: PRESENT: EOMI Respiratory exam: PRESENT: clear to auscultation krissy, unlabored Cardiovascular exam: PRESENT: RRR GI/Abdominal exam: PRESENT: soft. ABSENT: tenderness Extremities exam: ABSENT: pedal edema Musculoskeletal exam: PRESENT: normal inspection Neurological exam: PRESENT: alert, awake, oriented to person, oriented to place, oriented to time, oriented to situation Psychiatric exam: PRESENT: appropriate affect Skin exam: PRESENT: other - echymoses from restraints Results Laboratory Results: 04/29/20 02:37 04/29/20 02:37 04/28/20 04/28/20 04/28/20 13:31 13:55 13:57 WBC 3.7 L RBC 3.24 L Hgb 9.3 L Hct 30.6 L MCV 95 MCH 28.7 MCHC 30.4 L RDW 20.9 H Plt Count 396 Seg Neutrophils % Carbonic Acid 2.33 H HCO3/H2CO3 Ratio 6:1 ABG pH 6.89 L* ABG pCO2 77.5 H* ABG pO2 67.8 L ABG HCO3 14.5 L ABG O2 Saturation 76.2 L ABG Base Excess -19.2 FiO2 AO Sodium Potassium Chloride Carbon Dioxide Anion Gap BUN Creatinine Est GFR ( Amer) Glucose Calcium Ionized Calcium Inés Phosphorus Magnesium Total Bilirubin AST Alkaline Phosphatase Total Protein Albumin Urine Color YELLOW Urine Appearance SLIGHTLY-CLOUDY Urine pH 7.0 Ur Specific [place] 1.011 Urine Protein 100 H Urine Glucose (UA) 50 H Urine Ketones NEGATIVE Urine Blood SMALL H Urine RBC (Auto) 7 04/28/20 04/28/20 04/28/20 18:50 19:56 23:10 WBC RBC Hgb Hct MCV MCH MCHC RDW Plt Count Seg Neutrophils % Carbonic Acid 1.61 H 1.30 HCO3/H2CO3 Ratio 11:1 13:1 ABG pH 7.14 L* 7.21 L ABG pCO2 53.4 H 43.3 ABG pO2 131.4 H 141.6 H ABG HCO3 17.8 L 17.0 L ABG O2 Saturation 97.7 98.3 H ABG Base Excess -11.0 -10.3 FiO2 40% 40% Sodium 127.8 L Potassium 5.1 H Chloride 101 Carbon Dioxide 21 L Anion Gap 6 BUN 16 Creatinine 0.97 Est GFR ( Amer) > 60 Glucose 170 H Calcium 7.3 L Ionized Calcium Inés Phosphorus 5.8 H Magnesium Total Bilirubin AST Alkaline Phosphatase Total Protein Albumin Urine Color Urine Appearance Urine pH Ur Specific [place] Urine Protein Urine Glucose (UA) Urine Ketones Urine Blood Urine RBC (Auto) 04/29/20 04/29/20 04/29/20 02:37 02:37 03:39 WBC 6.2 RBC 2.64 L Hgb 7.7 L Hct 24.2 L MCV 92 MCH 29.0 MCHC 31.6 L RDW 21.0 H Plt Count 264 Seg Neutrophils % Not Reportable Carbonic Acid 1.18 HCO3/H2CO3 Ratio 14:1 ABG pH 7.26 L ABG pCO2 39.3 ABG pO2 104.0 H ABG HCO3 17.3 L ABG O2 Saturation 97.0 ABG Base Excess -9.0 FiO2 30% Sodium 130.4 L Potassium 4.6 Chloride 107 Carbon Dioxide 19 L Anion Gap 4 L BUN 17 Creatinine 0.83 Est GFR ( Amer) > 60 Glucose 99 Calcium 6.5 L* Ionized Calcium Inés 1.02 L Phosphorus 5.1 H Magnesium 1.5 L Total Bilirubin 0.2 AST 85 H Alkaline Phosphatase 85 Total Protein 5.1 L Albumin 2.0 L Urine Color Urine Appearance Urine pH Ur Specific [place] Urine Protein Urine Glucose (UA) Urine Ketones Urine Blood Urine RBC (Auto) 04/29/20 10:40 WBC RBC Hgb Hct MCV MCH MCHC RDW Plt Count Seg Neutrophils % Carbonic Acid 1.26 HCO3/H2CO3 Ratio 14:1 ABG pH 7.26 L ABG pCO2 41.9 ABG pO2 74.3 L ABG HCO3 18.4 L ABG O2 Saturation 92.9 L ABG Base Excess -8.2 FiO2 ROOM AIR Sodium Potassium Chloride Carbon Dioxide Anion Gap BUN Creatinine Est GFR ( Amer) Glucose Calcium Ionized Calcium Inés Phosphorus Magnesium Total Bilirubin AST Alkaline Phosphatase Total Protein Albumin Urine Color Urine Appearance Urine pH Ur Specific [place] Urine Protein Urine Glucose (UA) Urine Ketones Urine Blood Urine RBC (Auto) Impressions: Chest X-Ray 04/28/20 13:19 IMPRESSION: Tube placement. Head CT 04/28/20 14:40 IMPRESSION: No acute intracranial abnormality. EVIDENCE OF ACUTE STROKE: NO. Assessment & Plan - Diagnosis (1) Carcinoma of ovary, stage 4 Qualifiers: Laterality: unspecified laterality Qualified Code(s): C56.9 - Malignant neoplasm of unspecified ovary Is this a current diagnosis for this admission?: Yes Plan: received treatment yesterday with reaction. Further treatment to be discussed as outpatient. None planned in the next few weeks. (2) Acute respiratory failure with hypoxia Is this a current diagnosis for this admission?: Yes Plan: Difficult to say what the cause was. There is no evidence that she received more than a 1/2 of her regular dose of oral Xanax. This may have been a drug reaction, or severe anxiety. - Plan Summary Plan Summary: Agree with plans to advance diet and ambulate. Will continue to follow with you. Patient was discussed with coil winder hand.
[2020-04-29] MEDS: AMOXICILLIN TR/POT CLAVULANATE 875-125 MG TAB PO SCH (16:59)
[2020-04-29] MEDS: ALPRAZOLAM 0.25 MG TABLET PO PRN (21:43)
[2020-04-29 23:39] LABS: ARTERIAL BLOOD BASE EXCESS -5.8 mmol/L; ARTERIAL BLOOD H2CO3 1.12 mmol/L (1.05-1.35); ARTERIAL BLOOD HCO3 19.5 mmol/L (20-24); ARTERIAL BLOOD O2 SATURATION 94.3 % (94-98); ARTERIAL BLOOD PCO2 37.3 mmHg (35-45); ARTERIAL BLOOD PH 7.34 (7.35-7.45); ARTERIAL BLOOD PO2 74.7 mmHg (80-100); ARTERIAL BLOOD TOTAL CO2 20.6 mmol/L (21-25)
[2020-04-29 23:43] LABS: ARTERIAL BLOOD FIO2 21%
[2020-04-30 04:16] LABS: HEMATOCRIT 23.7 % (36.0-47.0); MEAN CORPUSCULAR HEMOGLOBIN 29.2 pg (27.0-33.4); MEAN CORPUSCULAR HGB CONC 32.2 g/dL (32.0-36.0); MEAN CORPUSCULAR VOLUME 91 fl (80-97); PLATELET COUNT 246 10^3/uL (150-450); RED BLOOD COUNT 2.61 10^6/uL (3.72-5.28); WHITE BLOOD COUNT 4.2 10^3/uL (4.0-10.5)
[2020-04-30 04:26] LABS: HEMOGLOBIN 7.6 g/dL (12.0-15.5)
[2020-04-30 04:34] LABS: ABSOLUTE LYMPHOCYTES# (MANUAL) 0.1 10^3/uL (0.5-4.7); ABSOLUTE MONOCYTES # (MANUAL) 0.1 10^3/uL (0.1-1.4); BASOPHILS % (MANUAL) 0 % (0-2); EOSINOPHILS % (MANUAL) 2 % (0-6); LYMPHOCYTES % (MANUAL) 2 % (13-45); MONOCYTES % (MANUAL) 3 % (3-13); SEGMENTED NEUTROPHILS % (MAN) 93 % (42-78); TOTAL CELLS COUNTED 100
[2020-04-30 04:35] LABS: ANISOCYTOSIS 3+; PLATELET COMMENT ADEQUATE
[2020-04-30 04:39] LABS: SCHISTOCYTES SLIGHT; TOXIC GRANULATION SLIGHT
[2020-04-30 04:40] LABS: OVALOCYTES SLIGHT
[2020-04-30 04:41] LABS: ANION GAP 5 (5-19); BLOOD UREA NITROGEN 16 mg/dL (7-20); CALCIUM 7.2 mg/dL (8.4-10.2); CARBON DIOXIDE 20 mmol/L (22-30); CHLORIDE 106 mmol/L (98-107); POTASSIUM 3.7 mmol/L (3.6-5.0)
[2020-04-30 04:48] LABS: GLUCOSE 67 mg/dL (75-110)
[2020-04-30] MEDS: FAMOTIDINE INJ/PF 20 MG/2 ML SDV IV SCH ×2 (05:01→17:18)
[2020-04-30] MEDS: ALPRAZOLAM 0.25 MG TABLET PO PRN ×3 (05:01→22:23)
[2020-04-30] MEDS: AMOXICILLIN TR/POT CLAVULANATE 875-125 MG TAB PO SCH ×2 (05:01→17:43)
[2020-04-30] MEDS ORDERED: NORMAL SALINE 250 ML IV PRN ×3 (08:48→08:53)
[2020-04-30] MEDS ORDERED: FUROSEMIDE INJ/PF 20 MG/2 ML SDV IV PRN (08:53)
--- NOTE | 2020-04-30 09:11 | PDOC CRITICAL CARE PROG REPORT ---
General Date:: 04/30/20 ICU Day:: 3 Hospital Day:: 3 Resuscitation Status: Full Code Events in the past 12 to 24 Hours:: 04/29: Admitted 04/28 with presumed benzodiazepine adverse reaction: Respiratory suppression. Successfully extubated in the interim. On room air. Complains of reproducible chest pain, owing to chest compressions for CPR. 04/30: Remains extubated. Restarted her Xanax 0.5 mg p.o. 3 times daily as needed yesterday. Dosage reduced to 0.25 mg p.o. 3 times daily as needed due to observed hypopneas. On Lidoderm patch for costochondral pain. Sodium 131, stable. Started Augmentin yesterday for empiric coverage of aspiration pneumonia. Now afebrile. Review of systems relevant to events:: Neurologic: altered mental status Endocrine: chronic hyponatremia Hem/Onc: stage IV ovarian ca. Reason for ICU Addmission:: Intubated and not responsive. - Medications: Medications reviewed and adjusted accordingly: Yes Physical Exam Vital Signs: Temp Pulse Resp BP Pulse Ox 100.4 F 90 18 149/77 H 96 04/29/20 16:35 04/29/20 20:39 04/29/20 04:30 04/30/20 08:00 04/30/20 08:30 Intake & Output 04/29/20 04/30/20 05/01/20 06:59 06:59 06:59 Intake Total 4969 1830 Output Total 305 2055 Balance 4664 -225 Weight 62.2 kg 63.4 kg Weight/Height Weight 63.4 kg Height 1.73 m General appearance: PRESENT: no acute distress, well-developed, well-nourished Head exam: PRESENT: atraumatic, normocephalic Eye exam: PRESENT: conjunctiva pink, EOMI, PERRLA. ABSENT: scleral icterus Mouth exam: PRESENT: moist, tongue midline Neck exam: ABSENT: carotid bruit, JVD, lymphadenopathy, thyromegaly Respiratory exam: PRESENT: clear to auscultation krissy. ABSENT: rales, rhonchi, wheezes Cardiovascular exam: PRESENT: RRR. ABSENT: diastolic murmur, rubs, systolic murmur GI/Abdominal exam: PRESENT: normal bowel sounds, soft. ABSENT: distended, guarding, mass, organolmegaly, rebound, tenderness Extremities exam: PRESENT: full ROM. ABSENT: calf tenderness, clubbing, pedal edema Musculoskeletal exam: PRESENT: normal inspection. ABSENT: deformity Neurological exam: PRESENT: alert, awake, oriented to person, oriented to place, oriented to time, oriented to situation, CN II-XII grossly intact. ABSENT: motor sensory deficit Psychiatric exam: PRESENT: appropriate affect, normal mood. ABSENT: homicidal ideation, suicidal ideation Laboratory/Radiographs Laboratory Results: 04/30/20 03:53 04/30/20 03:53 04/29/20 04/29/20 04/30/20 10:40 23:19 03:53 WBC RBC Hgb Hct MCV MCH MCHC RDW Plt Count Seg Neutrophils % Carbonic Acid 1.26 1.12 HCO3/H2CO3 Ratio 14:1 17:1 ABG pH 7.26 L 7.34 L ABG pCO2 41.9 37.3 ABG pO2 74.3 L 74.7 L ABG HCO3 18.4 L 19.5 L ABG O2 Saturation 92.9 L 94.3 ABG Base Excess -8.2 -5.8 FiO2 ROOM AIR 21% Sodium 131.1 L Potassium 3.7 Chloride 106 Carbon Dioxide 20 L Anion Gap 5 BUN 16 Creatinine 0.82 Est GFR ( Amer) > 60 Glucose 67 L Calcium 7.2 L Magnesium 2.2 04/30/20 03:53 WBC 4.2 RBC 2.61 L Hgb 7.6 L Hct 23.7 L MCV 91 MCH 29.2 MCHC 32.2 RDW 21.0 H Plt Count 246 Seg Neutrophils % Not Reportable Carbonic Acid HCO3/H2CO3 Ratio ABG pH ABG pCO2 ABG pO2 ABG HCO3 ABG O2 Saturation ABG Base Excess FiO2 Sodium Potassium Chloride Carbon Dioxide Anion Gap BUN Creatinine Est GFR ( Amer) Glucose Calcium Magnesium Impressions: Chest X-Ray 04/28/20 13:19 IMPRESSION: Tube placement. Head CT 04/28/20 14:40 IMPRESSION: No acute intracranial abnormality. EVIDENCE OF ACUTE STROKE: NO. All labs, radiographs, diagnostic studies and EKGs were personally reviewed: Yes In addition, reports of radiographic and diagnostic studies were read: Yes Assessment and Plan - Diagnosis (1) Adverse effect of benzodiazepine Qualifiers: Encounter type: subsequent encounter Qualified Code(s): T42.4X5D - Adverse effect of benzodiazepines, subsequent encounter Is this a current diagnosis for this admission?: Yes Plan: Continue Xanax 0.25 mg p.o. 3 times daily as needed. Of note, the patient reports that she typically takes half of this dosage. (2) Volume overload Qualifiers: Hypervolemia type: other Qualified Code(s): E87.79 - Other fluid overload Is this a current diagnosis for this admission?: Yes (3) Chronic anemia Is this a current diagnosis for this admission?: Yes (4) Elevated liver enzymes Is this a current diagnosis for this admission?: Yes (5) Hyponatremia Is this a current diagnosis for this admission?: Yes (6) Tobacco use disorder, severe, dependence Is this a current diagnosis for this admission?: Yes (7) Costochondral chest pain Is this a current diagnosis for this admission?: Yes Plan: Tylenol as needed. Continue Lidoderm. Plan Summary: OK to transfer to medical floor. Critical Time Critical Time (minutes): 45 Level of Care: ICU -: 1. The care of a critical patient is a dynamic process. This note is a technology sales representative synopsis but static in nature. The timeframe for treatments given in order is not necessarily the actual time these treatments may have been done. 2. This patient requires critical care secondary to ongoing requirements for therapy not offered or safe outside the critical care environment. Transfer to a lower level of care will result in altered life or limb morbidity and mortality. 3. Multidisciplinary rounds completed. 4. ABCDE bundle addressed.
--- NOTE | 2020-04-30 09:14 | PDOC PROGRESS REPORT ---
Subjective Progress Note for:: 04/30/20 Subjective:: Patient overall doing better, talkative, mental status improving Reason For Visit: BENZODIAZEPINE OD, UNINTENTIONAL Physical Exam Vital Signs: Temp Pulse Resp BP Pulse Ox 100.4 F 90 18 149/77 H 96 04/29/20 16:35 04/29/20 20:39 04/29/20 04:30 04/30/20 08:00 04/30/20 08:30 Intake & Output 04/29/20 04/30/20 05/01/20 06:59 06:59 06:59 Intake Total 4969 1830 Output Total 305 2055 Balance 4664 -225 Weight 62.2 kg 63.4 kg General appearance: PRESENT: no acute distress, well-developed, well-nourished Head exam: PRESENT: atraumatic, normocephalic Eye exam: PRESENT: conjunctiva pink, EOMI, PERRLA. ABSENT: scleral icterus Ear exam: PRESENT: normal external ear exam Mouth exam: PRESENT: moist, tongue midline Neck exam: ABSENT: carotid bruit, JVD, lymphadenopathy, thyromegaly Respiratory exam: PRESENT: clear to auscultation krissy. ABSENT: rales, rhonchi, wheezes Cardiovascular exam: PRESENT: RRR. ABSENT: diastolic murmur, rubs, systolic murmur Pulses: PRESENT: normal dorsalis pedis pul Vascular exam: PRESENT: normal capillary refill GI/Abdominal exam: PRESENT: normal bowel sounds, soft. ABSENT: distended, guarding, mass, organolmegaly, rebound, tenderness Rectal exam: PRESENT: deferred Extremities exam: PRESENT: full ROM. ABSENT: calf tenderness, clubbing, pedal edema Neurological exam: PRESENT: alert, awake, oriented to person, oriented to place, oriented to time, oriented to situation, CN II-XII grossly intact. ABSENT: motor sensory deficit Psychiatric exam: PRESENT: appropriate affect, normal mood. ABSENT: homicidal ideation, suicidal ideation Skin exam: PRESENT: dry, intact, warm. ABSENT: cyanosis, rash Results Laboratory Results: 04/30/20 03:53 04/30/20 03:53 04/29/20 04/29/20 04/30/20 10:40 23:19 03:53 WBC RBC Hgb Hct MCV MCH MCHC RDW Plt Count Seg Neutrophils % Carbonic Acid 1.26 1.12 HCO3/H2CO3 Ratio 14:1 17:1 ABG pH 7.26 L 7.34 L ABG pCO2 41.9 37.3 ABG pO2 74.3 L 74.7 L ABG HCO3 18.4 L 19.5 L ABG O2 Saturation 92.9 L 94.3 ABG Base Excess -8.2 -5.8 FiO2 ROOM AIR 21% Sodium 131.1 L Potassium 3.7 Chloride 106 Carbon Dioxide 20 L Anion Gap 5 BUN 16 Creatinine 0.82 Est GFR ( Amer) > 60 Glucose 67 L Calcium 7.2 L Magnesium 2.2 04/30/20 03:53 WBC 4.2 RBC 2.61 L Hgb 7.6 L Hct 23.7 L MCV 91 MCH 29.2 MCHC 32.2 RDW 21.0 H Plt Count 246 Seg Neutrophils % Not Reportable Carbonic Acid HCO3/H2CO3 Ratio ABG pH ABG pCO2 ABG pO2 ABG HCO3 ABG O2 Saturation ABG Base Excess FiO2 Sodium Potassium Chloride Carbon Dioxide Anion Gap BUN Creatinine Est GFR ( Amer) Glucose Calcium Magnesium Impressions: Chest X-Ray 04/28/20 13:19 IMPRESSION: Tube placement. Head CT 04/28/20 14:40 IMPRESSION: No acute intracranial abnormality. EVIDENCE OF ACUTE STROKE: NO. Assessment & Plan - Diagnosis (1) Carcinoma of ovary, stage 4 Qualifiers: Laterality: unspecified laterality Qualified Code(s): C56.9 - Malignant neoplasm of unspecified ovary Is this a current diagnosis for this admission?: Yes Plan: Unsure of why patient went into respiratory failure but could have been chemotherapy-induced or could have been COPD induced, she was wheezing prior to coming in. We will consider further treatment as an outpatient depending on how patient recovers from this episode. Will follow. - Time Time Spent with patient: 35 or more minutes
[2020-04-30] MEDS ORDERED: (PENDING PHARMACY ID) (Umeclidinium Brm/Vilanterol Tr [Anoro Ellipta 62.5-25 Mcg Inh] 1 PU IH SCH (10:00)
[2020-04-30] MEDS ORDERED: (PENDING PHARMACY ID) (Linaclotide 145 MCG) PO SCH (10:00)
[2020-04-30] MEDS: ENOXAPARIN SODIUM INJ 40 MG/0.4 ML DISP.SYRIN SUBCUT SCH (10:29)
[2020-04-30] MEDS: LISINOPRIL 10 MG TABLET PO SCH (10:38)
[2020-04-30] MEDS: LIDOCAINE 5% (700 MG) TRANSDERMAL ADH..PATCH TOP SCH (10:38)
[2020-04-30] MEDS: ACETAMINOPHEN 325 MG TABLET NG PRN ×2 (10:38→22:23)
[2020-04-30] MEDS: ALBUTEROL SULFATE HFA (90 MCG/PUFF) 200 PUFF/8.5 GM MDI IH PRN (11:39)
[2020-04-30] MEDS ORDERED: HYDROCODONE/ACETAMINOPHEN 5-325 MG TABLET PO PRN (15:18)
--- NOTE | 2020-04-30 18:10 | Progress Note ---
Provider Note Provider Note: Patient is a 64-year-old female with a past medical history significant for stage IV ovarian cancer followed by Dr. Nam, hypertension, COPD (not on home O2 dependent, arthritis, depression, and benzodiazepine dependence with continuous use. She was admitted by the senior product designer service 04/28/2020 for respiratory arrest; intubated in the field by EMS. She was extubated 04/29/2020. Unclear etiology regarding cause of arrest; potentially related to benzodiazepine use (patient had just taken a dose immediately prior to receiving chemotherapy), chemotherapy-induced, or COPD induced (her oncologist did know she been wheezing prior to starting her chemo treatment that day). Patient is now maintaining oxygen saturations on room air. She has been downgraded to IMCU and transfer to the hospitalist service. H&P, progress notes, consultation notes, overnight events/nursing notes, vital signs, laboratory results, imaging reports, and orders reviewed. Agree with the plan of care as established by the previous provider. In addition: Patient continues on Augmentin related to low-grade fever, borderline hypoxia, and tachycardia post extubation. Follow-up chest imaging is negative. Blood cultures are pending. Hgb has drifted from 9.3-> 7.6. No clear source of bleeding. Discussed with Dr. Nam; agrees that patient should receive 2 units PRBC. Furosemide 20 mg IV following 1st unit. Xanax dosing is decreased to 0.25 mg q6h prn. Will add Hydocodone 5/325; 1/2 tab q6h prn pain. Incentive spirometer to bedside. Q2 Turns, OOB for meals. PT/OT consulted. Per patient's request, she is changed to a Chemical Code w/ Intubation (no chest compressions) code status.
[2020-04-30] MEDS: AMLODIPINE BESYLATE 10 MG TABLET PO SCH (22:23)
[2020-04-30 23:42] LABS: ABSOLUTE BASOPHILS # (AUTO) 0.1 10^3/uL (0.0-0.2); ABSOLUTE EOSINOPHILS # (AUTO) 0.1 10^3/uL (0.0-0.6); ABSOLUTE LYMPHOCYTES (AUTO) 0.3 10^3/uL (0.5-4.7); ABSOLUTE MONOCYTES (AUTO) 0.2 10^3/uL (0.1-1.4); ABSOLUTE NEUT (AUTO) 3.9 10^3/uL (1.7-8.2); BASOPHILS % (AUTO) 1.6 % (0-2); EOSINOPHILS % (AUTO) 1.7 % (0-6); LYMPHOCYTES % (AUTO) 5.7 % (13-45); MEAN CORPUSCULAR HEMOGLOBIN 29.7 pg (27.0-33.4); MEAN CORPUSCULAR HGB CONC 33.6 g/dL (32.0-36.0); MEAN CORPUSCULAR VOLUME 89 fl (80-97); MONOCYTES % (AUTO) 5.2 % (3-13); PLATELET COUNT 217 10^3/uL (150-450); RED BLOOD COUNT 3.95 10^6/uL (3.72-5.28); RED CELL DISTRIBUTION WIDTH 18.7 % (11.5-14.0); SEGMENTED NEUTROPHILS % (AUTO) 85.8 % (42-78); TOTAL CELLS COUNTED % (AUTO) 100 %; WHITE BLOOD COUNT 4.6 10^3/uL (4.0-10.5)
[2020-04-30 23:43] LABS: HEMOGLOBIN 11.7 g/dL (12.0-15.5)
[2020-05-01] MEDS: AMOXICILLIN TR/POT CLAVULANATE 875-125 MG TAB PO SCH ×2 (05:25→17:13)
[2020-05-01] MEDS: FAMOTIDINE INJ/PF 20 MG/2 ML SDV IV SCH (05:26)
[2020-05-01] MEDS: ACETAMINOPHEN 325 MG TABLET NG PRN ×4 (05:39→21:02)
[2020-05-01] MEDS: ALPRAZOLAM 0.25 MG TABLET PO PRN ×4 (05:39→22:42)
[2020-05-01 06:05] LABS: HEMATOCRIT 36.5 % (36.0-47.0); HEMOGLOBIN 12.3 g/dL (12.0-15.5); MEAN CORPUSCULAR HEMOGLOBIN 29.9 pg (27.0-33.4); MEAN CORPUSCULAR HGB CONC 33.7 g/dL (32.0-36.0); MEAN CORPUSCULAR VOLUME 89 fl (80-97); PLATELET COUNT 206 10^3/uL (150-450); RED BLOOD COUNT 4.12 10^6/uL (3.72-5.28); WHITE BLOOD COUNT 4.1 10^3/uL (4.0-10.5)
[2020-05-01 06:17] LABS: BLOOD UREA NITROGEN 13 mg/dL (7-20); CALCIUM 7.8 mg/dL (8.4-10.2); CHLORIDE 104 mmol/L (98-107); GLUCOSE 74 mg/dL (75-110); POTASSIUM 4.1 mmol/L (3.6-5.0)
[2020-05-01 06:23] LABS: CARBON DIOXIDE 23 mmol/L (22-30)
[2020-05-01 06:26] LABS: ANION GAP 4 (5-19)
--- NOTE | 2020-05-01 08:17 | PDOC PROGRESS REPORT ---
Subjective Progress Note for:: 05/01/20 Subjective:: Feeling better, did not get up with PT because of severe chest pain related to the previous CPR. Decided to be chemical code only in the future, no CPR. Reason For Visit: BENZODIAZEPINE OD, UNINTENTIONAL Physical Exam Vital Signs: Temp Pulse Resp BP Pulse Ox 98.6 F 98 16 158/80 H 93 05/01/20 03:45 05/01/20 07:00 05/01/20 03:45 05/01/20 03:45 05/01/20 03:45 Intake & Output 04/30/20 05/01/20 05/02/20 06:59 06:59 06:59 Intake Total 1830 1432 Output Total 2055 1205 Balance -225 227 Weight 63.4 kg 62.6 kg General appearance: PRESENT: no acute distress, well-developed, well-nourished Head exam: PRESENT: atraumatic, normocephalic Eye exam: PRESENT: conjunctiva pink, EOMI, PERRLA. ABSENT: scleral icterus Ear exam: PRESENT: normal external ear exam Mouth exam: PRESENT: moist, tongue midline Neck exam: ABSENT: carotid bruit, JVD, lymphadenopathy, thyromegaly Respiratory exam: PRESENT: clear to auscultation krissy. ABSENT: rales, rhonchi, wheezes Cardiovascular exam: PRESENT: RRR. ABSENT: diastolic murmur, rubs, systolic murmur Pulses: PRESENT: normal dorsalis pedis pul Vascular exam: PRESENT: normal capillary refill GI/Abdominal exam: PRESENT: normal bowel sounds, soft. ABSENT: distended, guarding, mass, organolmegaly, rebound, tenderness Rectal exam: PRESENT: deferred Extremities exam: PRESENT: full ROM. ABSENT: calf tenderness, clubbing, pedal edema Neurological exam: PRESENT: alert, awake, oriented to person, oriented to place, oriented to time, oriented to situation, CN II-XII grossly intact. ABSENT: motor sensory deficit Psychiatric exam: PRESENT: appropriate affect, normal mood. ABSENT: homicidal ideation, suicidal ideation Skin exam: PRESENT: dry, intact, warm. ABSENT: cyanosis, rash Results Laboratory Results: 05/01/20 05:40 05/01/20 05:40 04/30/20 04/30/20 05/01/20 09:15 23:05 05:40 WBC 4.6 RBC 3.95 Hgb 11.7 L D Hct 35.0 L MCV 89 MCH 29.7 MCHC 33.6 RDW 18.7 H Plt Count 217 Seg Neutrophils % 85.8 H Sodium 130.9 L Potassium 4.1 Chloride 104 Carbon Dioxide 23 Anion Gap 4 L BUN 13 Creatinine 0.63 Est GFR ( Amer) > 60 Glucose 74 L Calcium 7.8 L Blood Type O NEGATIVE Antibody Screen NEGATIVE 05/01/20 05:40 WBC 4.1 RBC 4.12 Hgb 12.3 Hct 36.5 MCV 89 MCH 29.9 MCHC 33.7 RDW 19.0 H Plt Count 206 Seg Neutrophils % Sodium Potassium Chloride Carbon Dioxide Anion Gap BUN Creatinine Est GFR ( Amer) Glucose Calcium Blood Type Antibody Screen Impressions: Chest X-Ray 04/28/20 13:19 IMPRESSION: Tube placement. Head CT 04/28/20 14:40 IMPRESSION: No acute intracranial abnormality. EVIDENCE OF ACUTE STROKE: NO. Assessment & Plan - Diagnosis (1) Carcinoma of ovary, stage 4 Qualifiers: Laterality: unspecified laterality Qualified Code(s): C56.9 - Malignant neoplasm of unspecified ovary Is this a current diagnosis for this admission?: Yes Plan: Getting better, encouraged patient to work with physical therapy today, continue current supportive care - Time Time Spent with patient: 25-34 minutes
[2020-05-01] MEDS: ENOXAPARIN SODIUM INJ 40 MG/0.4 ML DISP.SYRIN SUBCUT SCH (09:10)
[2020-05-01] MEDS: LISINOPRIL 10 MG TABLET PO SCH (09:27)
[2020-05-01] MEDS: LIDOCAINE 5% (700 MG) TRANSDERMAL ADH..PATCH TOP SCH (09:27)
[2020-05-01] MEDS: ALBUTEROL SULFATE HFA (90 MCG/PUFF) 200 PUFF/8.5 GM MDI IH PRN (11:17)
--- NOTE | 2020-05-01 14:22 | PDOC PROGRESS REPORT ---
Subjective Progress Note for:: 05/01/20 Subjective:: No adverse events overnight. No new complaints. She says she still has lot of musculoskeletal discomfort in her chest but she is going to try to do better with physical therapy. She is trying to eat but says she does not have much of an appetite because of chemo. Reason For Visit: BENZODIAZEPINE OD, UNINTENTIONAL Physical Exam Vital Signs: Temp Pulse Resp BP Pulse Ox 98.0 F 107 H 20 172/84 H 92 05/01/20 12:11 05/01/20 12:11 05/01/20 12:11 05/01/20 12:11 05/01/20 12:11 Intake & Output 04/30/20 05/01/20 05/02/20 06:59 06:59 06:59 Intake Total 1830 1432 100 Output Total 2055 1205 250 Balance -225 227 -150 Weight 63.4 kg 62.6 kg General appearance: PRESENT: no acute distress, cooperative, disheveled, thin Respiratory exam: PRESENT: chest wall tenderness, clear to auscultation krissy, symmetrical, unlabored. ABSENT: accessory muscle use, crackles, prolonged expiratory phas, rhonchi, tachypnea, wheezes Cardiovascular exam: PRESENT: RRR, +S1, +S2 Pulses: PRESENT: normal carotid pulses Vascular exam: PRESENT: normal capillary refill GI/Abdominal exam: PRESENT: normal bowel sounds, soft. ABSENT: distended, guarding, rebound, tenderness Extremities exam: ABSENT: clubbing, pedal edema Musculoskeletal exam: PRESENT: normal inspection. ABSENT: deformity Neurological exam: PRESENT: alert, awake, oriented to person, oriented to place, oriented to situation Psychiatric exam: PRESENT: appropriate affect, normal mood Skin exam: PRESENT: dry, warm Results Laboratory Results: 05/01/20 05:40 05/01/20 05:40 04/30/20 04/30/20 05/01/20 09:15 23:05 05:40 WBC 4.6 RBC 3.95 Hgb 11.7 L D Hct 35.0 L MCV 89 MCH 29.7 MCHC 33.6 RDW 18.7 H Plt Count 217 Seg Neutrophils % 85.8 H Sodium 130.9 L Potassium 4.1 Chloride 104 Carbon Dioxide 23 Anion Gap 4 L BUN 13 Creatinine 0.63 Est GFR ( Amer) > 60 Glucose 74 L Calcium 7.8 L Blood Type O NEGATIVE Antibody Screen NEGATIVE 05/01/20 05:40 WBC 4.1 RBC 4.12 Hgb 12.3 Hct 36.5 MCV 89 MCH 29.9 MCHC 33.7 RDW 19.0 H Plt Count 206 Seg Neutrophils % Sodium Potassium Chloride Carbon Dioxide Anion Gap BUN Creatinine Est GFR ( Amer) Glucose Calcium Blood Type Antibody Screen Impressions: Chest X-Ray 04/28/20 13:19 IMPRESSION: Tube placement. Head CT 04/28/20 14:40 IMPRESSION: No acute intracranial abnormality. EVIDENCE OF ACUTE STROKE: NO. Assessment and Plan - Diagnosis (1) Benzodiazepine overdose Qualifiers: Encounter type: initial encounter Injury intent: accidental or unintentional Qualified Code(s): T42.4X1A - Poisoning by benzodiazepines, accidental (unintentional), initial encounter Is this a current diagnosis for this admission?: Yes Plan: Resolved (2) Carcinoma of ovary, stage 4 Qualifiers: Laterality: unspecified laterality Qualified Code(s): C56.9 - Malignant neoplasm of unspecified ovary Is this a current diagnosis for this admission?: Yes Plan: Already has follow-up arranged with Dr. Nam (3) Chronic anemia Is this a current diagnosis for this admission?: Yes Plan: She only got 1 unit of packed red cells and her hemoglobin is up to 12 this morning. Either the initial draw was low or this draw overestimates her hemoglobin. We will monitor to see if she needs any further intervention. (4) Costochondral chest pain Is this a current diagnosis for this admission?: Yes Plan: Due to CPR. She had a CODE STATUS changed to chemical code only with mechanical ventilation if needed, but she does not want chest compressions. She did better with PT today and had some trouble getting up when she finally got up she walked 50 feet with assistance. We will see how she is doing again tomorrow and then decide on whether or not she should go to rehab versus home health. (5) Hyponatremia Is this a current diagnosis for this admission?: Yes Plan: Sodium is stable at around 130, will continue to monitor (6) Acute respiratory failure with hypoxia Is this a current diagnosis for this admission?: Yes Plan: Resolved - Time Time Spent with patient: 15-24 minutes
[2020-05-01] MEDS: FAMOTIDINE 20 MG TABLET PO SCH (17:13)
[2020-05-01] MEDS: AMLODIPINE BESYLATE 10 MG TABLET PO SCH (21:03)
[2020-05-01] MEDS: PHARMACY COMMUNICATION ORDER MC SCH (21:05)
[2020-05-02] MEDS: AMOXICILLIN TR/POT CLAVULANATE 875-125 MG TAB PO SCH ×2 (05:51→18:25)
[2020-05-02] MEDS: ALPRAZOLAM 0.25 MG TABLET PO PRN ×3 (05:51→21:18)
[2020-05-02] MEDS: ACETAMINOPHEN 325 MG TABLET NG PRN (05:51)
[2020-05-02] MEDS: FAMOTIDINE 20 MG TABLET PO SCH ×2 (05:51→18:25)
--- NOTE | 2020-05-02 08:22 | PDOC PROGRESS REPORT ---
Subjective Progress Note for:: 05/02/20 Subjective:: No acute events overnight, walked short distance w/ PT yesterday. Still w/ alot of pain. Does not want to take narcotic pain med though b/c all of them cause severe N/V Reason For Visit: BENZODIAZEPINE OD, UNINTENTIONAL Physical Exam Vital Signs: Temp Pulse Resp BP Pulse Ox 97.6 F 112 H 15 149/80 H 93 05/02/20 04:01 05/02/20 07:00 05/02/20 04:01 05/02/20 04:01 05/02/20 04:01 Intake & Output 05/01/20 05/02/20 05/03/20 06:59 06:59 06:59 Intake Total 1432 610 Output Total 1205 1100 Balance 227 -490 Weight 62.6 kg 61 kg General appearance: PRESENT: no acute distress, well-developed, well-nourished Head exam: PRESENT: atraumatic, normocephalic Eye exam: PRESENT: conjunctiva pink, EOMI, PERRLA. ABSENT: scleral icterus Ear exam: PRESENT: normal external ear exam Mouth exam: PRESENT: moist, tongue midline Neck exam: ABSENT: carotid bruit, JVD, lymphadenopathy, thyromegaly Respiratory exam: PRESENT: clear to auscultation krissy. ABSENT: rales, rhonchi, wheezes Cardiovascular exam: PRESENT: RRR. ABSENT: diastolic murmur, rubs, systolic murmur Pulses: PRESENT: normal dorsalis pedis pul Vascular exam: PRESENT: normal capillary refill GI/Abdominal exam: PRESENT: normal bowel sounds, soft. ABSENT: distended, guarding, mass, organolmegaly, rebound, tenderness Rectal exam: PRESENT: deferred Extremities exam: PRESENT: full ROM. ABSENT: calf tenderness, clubbing, pedal edema Neurological exam: PRESENT: alert, awake, oriented to person, oriented to place, oriented to time, oriented to situation, CN II-XII grossly intact. ABSENT: motor sensory deficit Psychiatric exam: PRESENT: appropriate affect, normal mood. ABSENT: homicidal ideation, suicidal ideation Skin exam: PRESENT: dry, intact, warm. ABSENT: cyanosis, rash Results Laboratory Results: 05/01/20 05:40 05/01/20 05:40 Impressions: Chest X-Ray 04/28/20 13:19 IMPRESSION: Tube placement. Head CT 04/28/20 14:40 IMPRESSION: No acute intracranial abnormality. EVIDENCE OF ACUTE STROKE: NO. Assessment & Plan - Diagnosis (1) Carcinoma of ovary, stage 4 Qualifiers: Laterality: unspecified laterality Qualified Code(s): C56.9 - Malignant neoplasm of unspecified ovary Is this a current diagnosis for this admission?: Yes Plan: Further rx as outpt. Will follow while in house. - Time Time Spent with patient: 15-24 minutes
[2020-05-02] MEDS: ENOXAPARIN SODIUM INJ 40 MG/0.4 ML DISP.SYRIN SUBCUT SCH (09:19)
[2020-05-02] MEDS: ALBUTEROL SULFATE HFA (90 MCG/PUFF) 200 PUFF/8.5 GM MDI IH PRN (09:21)
[2020-05-02] MEDS: LIDOCAINE 5% (700 MG) TRANSDERMAL ADH..PATCH TOP SCH (09:21)
[2020-05-02] MEDS: LISINOPRIL 10 MG TABLET PO SCH (09:21)
[2020-05-02] MEDS ORDERED: FUROSEMIDE INJ/PF 40 MG/4 ML SDV IV ONE (10:30)
[2020-05-02] MEDS: KETOROLAC TROMETHAMINE INJ/PF 30 MG/1 ML SDV IV PRN (11:23)
--- NOTE | 2020-05-02 15:27 | PDOC PROGRESS REPORT ---
Subjective Progress Note for:: 05/02/20 Subjective:: No adverse events overnight. No new complaints. Vital signs been stable. Pain has improved a little bit. She had the most amount of trouble getting up out of bed but when she got up she seemed to be able to walk fairly well. She says she lives at home alone but she says she thinks she can stay with her cousin for short period of time until she is able to get around better. She would rather go home with home health and go to rehab. Reason For Visit: BENZODIAZEPINE OD, UNINTENTIONAL Physical Exam Vital Signs: Temp Pulse Resp BP Pulse Ox 97.4 F 97 16 147/81 H 94 05/02/20 11:20 05/02/20 11:20 05/02/20 11:20 05/02/20 11:20 05/02/20 11:20 Intake & Output 05/01/20 05/02/20 05/03/20 06:59 06:59 06:59 Intake Total 1432 610 405 Output Total 1205 1100 650 Balance 227 -490 -245 Weight 62.6 kg 61 kg General appearance: PRESENT: no acute distress, cooperative, disheveled, thin Respiratory exam: PRESENT: chest wall tenderness, clear to auscultation krissy, symmetrical, unlabored. ABSENT: accessory muscle use, crackles, prolonged expiratory phas, rhonchi, tachypnea, wheezes Cardiovascular exam: PRESENT: RRR, +S1, +S2 Pulses: PRESENT: normal carotid pulses Vascular exam: PRESENT: normal capillary refill GI/Abdominal exam: PRESENT: normal bowel sounds, soft. ABSENT: distended, guarding, rebound, tenderness Extremities exam: ABSENT: clubbing, pedal edema Musculoskeletal exam: PRESENT: normal inspection. ABSENT: deformity Neurological exam: PRESENT: alert, awake, oriented to person, oriented to place, oriented to situation Psychiatric exam: PRESENT: appropriate affect, normal mood Skin exam: PRESENT: dry, warm Results Laboratory Results: 05/01/20 05:40 05/01/20 05:40 Impressions: Chest X-Ray 04/28/20 13:19 IMPRESSION: Tube placement. Head CT 04/28/20 14:40 IMPRESSION: No acute intracranial abnormality. EVIDENCE OF ACUTE STROKE: NO. Assessment and Plan - Diagnosis (1) Benzodiazepine overdose Qualifiers: Encounter type: initial encounter Injury intent: accidental or unintentional Qualified Code(s): T42.4X1A - Poisoning by benzodiazepines, accidental (unintentional), initial encounter Is this a current diagnosis for this admission?: Yes Plan: Resolved (2) Carcinoma of ovary, stage 4 Qualifiers: Laterality: unspecified laterality Qualified Code(s): C56.9 - Malignant maya plasm of unspecified ovary Is this a current diagnosis for this admission?: Yes Plan: Already has follow-up arranged with Dr. Nam (3) Chronic anemia Is this a current diagnosis for this admission?: Yes Plan: She only got 1 unit of packed red cells and her hemoglobin is up to 12. We will monitor to see if she needs any further intervention. (4) Costochondral chest pain Is this a current diagnosis for this admission?: Yes Plan: Due to CPR. She had a CODE STATUS changed to chemical code only with mechanical ventilation if needed, but she does not want chest compressions. Plan is to send her home tomorrow with home health. (5) Hyponatremia Is this a current diagnosis for this admission?: Yes Plan: Sodium is stable at around 130, will continue to monitor (6) Acute respiratory failure with hypoxia Is this a current diagnosis for this admission?: Yes Plan: Resolved - Time Time Spent with patient: 15-24 minutes
[2020-05-02] MEDS: AMLODIPINE BESYLATE 10 MG TABLET PO SCH (21:16)
[2020-05-02] MEDS: PHARMACY COMMUNICATION ORDER MC SCH (21:17)
[2020-05-03] MEDS: FAMOTIDINE 20 MG TABLET PO SCH (06:24)
[2020-05-03] MEDS: AMOXICILLIN TR/POT CLAVULANATE 875-125 MG TAB PO SCH (06:24)
[2020-05-03] MEDS: KETOROLAC TROMETHAMINE INJ/PF 30 MG/1 ML SDV IV PRN (10:09)
[2020-05-03] MEDS: LISINOPRIL 10 MG TABLET PO SCH (10:10)
[2020-05-03] MEDS: LIDOCAINE 5% (700 MG) TRANSDERMAL ADH..PATCH TOP SCH (10:10)
[2020-05-03] MEDS: ENOXAPARIN SODIUM INJ 40 MG/0.4 ML DISP.SYRIN SUBCUT SCH (10:10)
[2020-05-03] MEDS: ALPRAZOLAM 0.25 MG TABLET PO PRN (10:13)
[2020-05-03 11:36] VITALS: BP 178/93
--- NOTE | 2020-05-03 14:26 | PDOC DISCHARGE SUMMARY ---
Impression - Admit/DC Date/PCP Admission Date/Primary Care Provider: 04/28/20 16:30 KELSEY TAVERA MD Discharge Date: 05/03/20 - Discharge Diagnosis (1) Benzodiazepine overdose Is this a current diagnosis for this admission?: Yes (2) Carcinoma of ovary, stage 4 Is this a current diagnosis for this admission?: Yes (3) Chronic anemia Is this a current diagnosis for this admission?: Yes (4) Costochondral chest pain Is this a current diagnosis for this admission?: Yes (5) Hyponatremia Is this a current diagnosis for this admission?: Yes (6) Acute respiratory failure with hypoxia Is this a current diagnosis for this admission?: Yes - Additional Information Resuscitation Status: Chemical Code Only Discharge Diet: Cardiac Discharge Activity: Balance Activity w/Rest, Supervised Activity Referrals: KELSEY TAVERA MD [Primary Care Provider] - Follow up as needed (sticker in b ook) ESTEBAN CAPONE [NO LOCAL MD] - (sticker in book) Prescriptions: Amoxicillin/Potassium Clav [Augmentin 875-125 Tablet] 1 tab PO Q12A #10 tablet Amlodipine Besylate [Norvasc 10 mg Tablet] 10 mg PO QHS #30 tablet Home Medications: Alprazolam [Xanax 0.5 mg Tablet] 0.5 mg PO Q8HP PRN 02/26/19 Lisinopril [Prinivil 40 mg Tablet] 40 mg PO QAM 02/26/19 Umeclidinium Brm/Vilanterol Tr [Anoro Ellipta 62.5-25 Mcg INH] 1 puff IH DAILY 02/26/19 Albuterol Sulfate [Ventolin Hfa 8 gm Mdi] 2 puff IH Q4HP PRN 04/28/20 Famotidine [Pepcid] 20 mg PO DAILY 04/28/20 Hydroxyzine HCl [Atarax 10 mg Tablet] 25 mg PO Q8HP PRN 04/28/20 Lidocaine [Lidoderm 5% (700 mg) Transdermal Patch] 1 patch TOP DAILY 04/28/20 Linaclotide [Linzess 145 Mcg Capsule] 145 mcg PO DAILY 04/28/20 Ondansetron HCl [Zofran 8 mg Tablet] 8 mg PO Q8HP PRN 04/28/20 Amlodipine Besylate [Norvasc 10 mg Tablet] 10 mg PO QHS #30 tablet 05/03/20 Amoxicillin/Potassium Clav [Augmentin 875-125 Tablet] 1 tab PO Q12A #10 tablet 05/03/20 History of Present Illiness History of Present Illness: SHAWANDA ZHANG is a 64 year old female with [address] IV ovarian cancer who was in her oncologists office and felt anxious. Took ativan. One report says i pill, another report unknown amount. Not intentional. Intubated in the office. Said to have a 5mm pupil on L. In ed both 2mm. However there is no cough, gag corneal reflex. She received rocuronium and etomidate and with an unknown quantity of benzodiazepines it too early to invoke brain especially since we do not have a definite cause. Hospital Course Hospital Course: The working diagnosis is that she unintentionally overdosed on Ativan. Of note, she displays no signs or symptoms whatsoever of a desire for self-harm. She wants to be able to go home so she can continue her cancer treatment. She received CPR and was intubated. She was successfully extubated and has been on room air. She said her chest is been very sore ever since then and she is okay in the future with a chemical code of mechanical intubation but she does not want to have chest compressions done to her ever again. It was very hard for her to get up out of bed for couple of days. She did make some progress with physical therapy. She does not want to take any narcotics for pain. She lives alone, so she agreed to go stay with her cousin for a few days and home health can come see her there until she can move around a little bit better on her own to return to her own house. She was cautioned to be much more careful with her benzodiazepine use, and if she is not able to do so it is recommended that she stop taking them altogether. She has follow-up early next week with her oncologist. She will get home health for physical therapy and was given a rolling walker. Her labs and examination were reassuring and she was discharged in stable condition. Also, she was treated for what was thought to be an aspiration pneumonia and has a few more days of Augmentin to finish at home. Physical Exam Vital Signs: Temp Pulse Resp BP Pulse Ox 97.7 F 106 H 20 178/93 H 91 L 05/03/20 11:35 05/03/20 11:35 05/03/20 11:35 05/03/20 11:35 05/03/20 11:35 Intake & Output 05/02/20 05/03/20 05/04/20 06:59 06:59 06:59 Intake Total 610 760 Output Total 1100 1200 Balance -490 -440 Weight 61 kg 59.9 kg General appearance: PRESENT: no acute distress, cooperative, disheveled, thin Respiratory exam: PRESENT: chest wall tenderness, clear to auscultation krissy, symmetrical, unlabored. ABSENT: accessory muscle use, crackles, prolonged expiratory phas, rhonchi, tachypnea, wheezes Cardiovascular exam: PRESENT: RRR, +S1, +S2 Pulses: PRESENT: normal carotid pulses Vascular exam: PRESENT: normal capillary refill GI/Abdominal exam: PRESENT: normal bowel sounds, soft. ABSENT: distended, guarding, rebound, tenderness Extremities exam: ABSENT: clubbing, pedal edema Musculoskeletal exam: PRESENT: normal inspection. ABSENT: deformity Neurological exam: PRESENT: alert, awake, oriented to person, oriented to place, oriented to situation Psychiatric exam: PRESENT: appropriate affect, normal mood Skin exam: PRESENT: dry, warm Results Laboratory Results: WBC 4.1 10^3/uL (4.0-10.5) 05/01/20 05:40 RBC 4.12 10^6/uL (3.72-5.28) 05/01/20 05:40 Hgb 12.3 g/dL (12.0-15.5) 05/01/20 05:40 Hct 36.5 % (36.0-47.0) 05/01/20 05:40 MCV 89 fl (80-97) 05/01/20 05:40 MCH 29.9 pg (27.0-33.4) 05/01/20 05:40 MCHC 33.7 g/dL (32.0-36.0) 05/01/20 05:40 RDW 19.0 % (11.5-14.0) H 05/01/20 05:40 Plt Count 206 10^3/uL (150-450) 05/01/20 05:40 Lymph % (Auto) 5.7 % (13-45) L 04/30/20 23:05 [place] % (Auto) 5.2 % (3-13) 04/30/20 23:05 Eos % (Auto) 1.7 % (0-6) 04/30/20 23:05 Baso % (Auto) 1.6 % (0-2) 04/30/20 23:05 Absolute Neuts (auto) 3.9 10^3/uL (1.7-8.2) 04/30/20 23:05 Absolute Lymphs (auto) 0.3 10^3/uL (0.5-4.7) L 04/30/20 23:05 Absolute Monos (auto) 0.2 10^3/uL (0.1-1.4) 04/30/20 23:05 Absolute Eos (auto) 0.1 10^3/uL (0.0-0.6) 04/30/20 23:05 Absolute Basos (auto) 0.1 10^3/uL (0.0-0.2) 04/30/20 23:05 Total Counted 100 04/30/20 03:53 Seg Neutrophils % 85.8 % (42-78) H 04/30/20 23:05 Seg Neuts % (Manual) 93 % (42-78) H 04/30/20 03:53 Band Neutrophils % 3 % (3-5) 04/29/20 02:37 Lymphocytes % (Manual) 2 % (13-45) L 04/30/20 03:53 Atypical Lymphs % 5 % (0) 04/28/20 13:31 Monocytes % (Manual) 3 % (3-13) 04/30/20 03:53 Eosinophils % (Manual) 2 % (0-6) 04/30/20 03:53 Basophils % (Manual) 0 % (0-2) 04/30/20 03:53 Metamyelocytes % 1 % (0-1) 04/28/20 13:31 Abs Neuts (Manual) 3.9 10^3/uL (1.7-8.2) 04/30/20 03:53 Abs Lymphs (Manual) 0.1 10^3/uL (0.5-4.7) L 04/30/20 03:53 Abs Monocytes (Manual) 0.1 10^3/uL (0.1-1.4) 04/30/20 03:53 Absolute Eos (Manual) 0.1 10^3/uL (0.0-0.6) 04/30/20 03:53 Abs Basophils (Manual) 0.0 10^3/uL (0.0-0.2) 04/30/20 03:53 Toxic Granulation SLIGHT 04/30/20 03:53 Toxic Vacuolation PRESENT 04/29/20 02:37 Platelet Comment ADEQUATE 04/30/20 03:53 Polychromasia SLIGHT 04/28/20 13:31 Poikilocytosis 3+ 04/29/20 02:37 Anisocytosis 3+ 04/30/20 03:53 Tear Drop Cells 1+ 04/29/20 02:37 Ovalocytes SLIGHT 04/30/20 03:53 [place] Cells SLIGHT 04/29/20 02:37 Schistocytes SLIGHT 04/30/20 03:53 Carbonic Acid 1.12 mmol/L (1.05-1.35) 04/29/20 23:19 HCO3/H2CO3 Ratio 17:1 04/29/20 23:19 ABG pH 7.34 (7.35-7.45) L 04/29/20 23:19 ABG pCO2 37.3 mmHg (35-45) 04/29/20 23:19 ABG pO2 74.7 mmHg (80-100) L 04/29/20 23:19 ABG HCO3 19.5 mmol/L (20-24) L 04/29/20 23:19 ABG Total CO2 20.6 mmol/L (21-25) L 04/29/20 23:19 ABG O2 Saturation 94.3 % (94-98) 04/29/20 23:19 ABG Base Excess -5.8 mmol/L 04/29/20 23:19 FiO2 21% 04/29/20 23:19 Sodium 130.9 mmol/L (137-145) L 05/01/20 05:40 Potassium 4.1 mmol/L (3.6-5.0) 05/01/20 05:40 Chloride 104 mmol/L (98-107) 05/01/20 05:40 Carbon Dioxide 23 mmol/L (22-30) 05/01/20 05:40 Anion Gap 4 (5-19) L 05/01/20 05:40 BUN 13 mg/dL (7-20) 05/01/20 05:40 Creatinine 0.63 mg/dL (0.52-1.25) 05/01/20 05:40 Est GFR ( Amer) > 60 (>60) 05/01/20 05:40 Est GFR (MDRD) Non-Af > 60 (>60) 05/01/20 05:40 Glucose 74 mg/dL (75-110) L 05/01/20 05:40 POC Glucose 98 mg/dL (70-110) 04/30/20 06:37 Calcium 7.8 mg/dL (8.4-10.2) L 05/01/20 05:40 Ionized Calcium Inés 1.02 mmol/L (1.14-1.30) L 04/29/20 03:39 Phosphorus 5.1 mg/dL (2.5-4.5) H 04/29/20 02:37 Magnesium 2.2 mg/dL (1.6-2.3) 04/30/20 03:53 Total Bilirubin 0.2 mg/dL (0.2-1.3) 04/29/20 02:37 Direct Bilirubin 0.0 mg/dL (0.0-0.4) 04/29/20 02:37 Neonat Total Bilirubin Not Reportable 04/29/20 02:37 Neonat Direct Bilirubin Not Reportable 04/29/20 02:37 Neonat Indirect Bili Not Reportable 04/29/20 02:37 AST 85 U/L (14-36) H 04/29/20 02:37 ALT 55 U/L (<35) H 04/29/20 02:37 Alkaline Phosphatase 85 U/L (38-126) 04/29/20 02:37 Total Protein 5.1 g/dL (6.3-8.2) L 04/29/20 02:37 Albumin 2.0 g/dL (3.5-5.0) L 04/29/20 02:37 Urine Color YELLOW 04/28/20 13:55 Urine Appearance SLIGHTLY-CLOUDY 04/28/20 13:55 Urine pH 7.0 (5.0-9.0) 04/28/20 13:55 Ur Specific [place] 1.011 04/28/20 13:55 Urine Protein 100 mg/dL (NEGATIVE) H 04/28/20 13:55 Urine Glucose (UA) 50 mg/dL (NEGATIVE) H 04/28/20 13:55 Urine Ketones NEGATIVE mg/dL (NEGATIVE) 04/28/20 13:55 Urine Blood SMALL (NEGATIVE) H 04/28/20 13:55 Urine Nitrite (Reflex) NEGATIVE (NEGATIVE) 04/28/20 13:55 Urine Bilirubin NEGATIVE (NEGATIVE) 04/28/20 13:55 Urine Urobilinogen NEGATIVE mg/dL (<2.0) 04/28/20 13:55 Leukocyte Esterase Rfl NEGATIVE (NEGATIVE) 04/28/20 13:55 Urine RBC (Auto) 7 /HPF 04/28/20 13:55 U Hyaline Cast (Auto) 7 /LPF 04/28/20 13:55 Urine WBC (Reflex) 10 /HPF 04/28/20 13:55 Urine Mucus (Auto) RARE /LPF 04/28/20 13:55 Urine Ascorbic Acid NEGATIVE (NEGATIVE) 04/28/20 13:55 Urine Opiates Screen NEGATIVE 04/28/20 13:55 Urine Methadone Screen NEGATIVE 04/28/20 13:55 Ur Barbiturates Screen NEGATIVE 04/28/20 13:55 Ur Phencyclidine Scrn NEGATIVE 04/28/20 13:55 Ur Amphetamines Screen NEGATIVE 04/28/20 13:55 U Benzodiazepines Scrn UNCONFIRMED POSITIVE 04/28/20 13:55 Urine Cocaine Screen NEGATIVE 04/28/20 13:55 U Marijuana (THC) Screen NEGATIVE 04/28/20 13:55 Blood Type O NEGATIVE 04/30/20 09:15 Blood Type Confirm O NEGATIVE 04/30/20 09:25 Antibody Screen NEGATIVE 04/30/20 09:15 Crossmatch See Detail 04/30/20 09:15 Impressions: Chest X-Ray 04/28/20 13:19 IMPRESSION: Tube placement. Head CT 04/28/20 14:40 IMPRESSION: No acute intracranial abnormality. EVIDENCE OF ACUTE STROKE: NO. Plan Time Spent: Greater than 30 Minutes Stroke Is this a Stroke Patient?: No Acute Heart Failure - Is this a Heart Failure Patient?: No
== END 2020-05-03 12:03 | disposition home health service (06) | DRG 917 ==
LOC: ER 13:09 → EH 16:30 → ICU 18:40 → 3S 04-30 10:21
PROVIDERS: ADMIT Anesthesiology; ATTEND Family Medicine
PROC: 5A1935Z Respiratory Ventilation, Less than 24 Consecutive Hours (ICD-10-PCS; principal; 2020-04-28)
PROC: 30233N1 Transfusion of Nonautologous Red Blood Cells into Peripheral Vein, Percutaneous Approach (ICD-10-PCS; 2020-04-30)
DX: T42.4X1A Poisoning by benzodiazepines, accidental (unintentional), initial encounter (principal); J96.01 Acute respiratory failure with hypoxia; J69.0 Pneumonitis due to inhalation of food and vomit; C56.9 Malignant neoplasm of unspecified ovary; E87.1 Hypo-osmolality and hyponatremia; F13.20 Sedative, hypnotic or anxiolytic dependence, uncomplicated; I10 Essential (primary) hypertension; M15.9 Polyosteoarthritis, unspecified; D64.89 Other specified anemias; J44.9 Chronic obstructive pulmonary disease, unspecified; E87.79 Other fluid overload; R07.89 Other chest pain; Y92.531 Health care provider office as the place of occurrence of the external cause; Z88.1 Allergy status to other antibiotic agents; Z88.7 Allergy status to serum and vaccine; Z79.899 Other long term (current) drug therapy; Z60.2 Problems related to living alone; Z88.8 Allergy status to other drugs, medicaments and biological substances; F17.200 Nicotine dependence, unspecified, uncomplicated; Z82.49 Family history of ischemic heart disease and other diseases of the circulatory system; Z90.710 Acquired absence of both cervix and uterus; Z90.49 Acquired absence of other specified parts of digestive tract; Z78.1 Physical restraint status
CPT/HCPCS: 36415; 36430; 36600; 70450; 71045; 80048; 80053; 80307; 81001; 82330; 82803; 82962; 83735; 84100; 85025; 85027; 86850; 86900; 86901; 86920; 87040; 93005; 93010; 94002; 94003; 94799; 96360; 96361; 99221; 99285; 99291; J1642; J1650; J1885; J1940; J2405; J3475; J3490; J7030; J7120; P9016; S0028

== ENCOUNTER 2020-05-26 13:43 | Emergency (ER) | payer MEDICARE, MEDICAID ==
--- NOTE | 2020-05-26 16:56 | ER Document Report ---
ED Allergic Reaction - General Chief Complaint: Allergic Reaction Stated Complaint: POSSIBLE ALLERGIC REACTION Time Seen by Provider: 05/26/20 14:19 Primary Care Provider: KELSEY TAVERA MD [Primary Care Provider] - Follow up as needed Mode of Arrival: Medic Information source: Patient Notes: 65-year-old woman presents to the emergency department with history of received chemotherapy at the oncology center today and immediate reaction with shortness of breath and some difficulty swallowing. EMS was called and the patient was given Solu-Medrol, Benadryl, she was noted to have wheezing in all lobes and tachycardic to 118 bpm. Patient was noted to have an O2 sat of 88 which improved to 94% on 4 L nasal cannula. She was transported to the emergency department and upon arrival to the emergency department the patient was much improved. The wheezing had resolved and her work to breathe and improved. Denied any difficulty swallowing and a temporal exam revealed no airway swelling. TRAVEL OUTSIDE OF THE [place] IN LAST 30 DAYS: No - Related Data Allergies/Adverse Reactions: cephalexin monohydrate [From Keflex] Allergy (Mild, Verified 04/29/20 07:45) rash Tetanus Vaccines and Toxoid [Tetanus] Allergy (Mild, Verified 04/29/20 07:45) ARM SWELLING duloxetine HCl [From Cymbalta] Allergy (Verified 04/29/20 07:45) Vomiting oxycodone HCl [From Percocet] Allergy (Verified 04/29/20 07:45) Vomiting tramadol HCl [From Ultracet] Allergy (Verified 04/29/20 07:45) Vomiting azithromycin [From Zithromax] Adverse Reaction (Intermediate, Verified 04/29/20 07:45) N/V Past Medical History - Social History Smoking Status: Unknown if Ever Smoked Family History: CAD, Hypertension, Malignancy, Other - Kidney stones, renal vascular disease. denies: CVA, DM Patient has homicidal ideation: No - Past Medical History Cardiac Medical History: Reports: Hx Hypertension Denies: Hx Coronary Artery Disease, Hx Heart Attack Pulmonary Medical History: Reports: Hx Bronchitis, Hx COPD Denies: Hx Asthma, Hx Pneumonia Neurological Medical History: Denies: Hx Cerebrovascular Accident, Hx Seizures Endocrine Medical History: Denies: Hx Diabetes Mellitus Type 1, Hx Diabetes Mellitus Type 2, Hx Hyperthyroidism, Hx Hypothyroidism Renal/ Medical History: Denies: Hx Peritoneal Dialysis Malignancy Medical History: Reports: Hx Ovarian Cancer - stage IV per patient, unsure of metastasis GI Medical History: Reports: Hx Ulcerative Colitis. Denies: Hx Cirrhosis, Hx Hepatitis, Hx Hiatal Hernia, Hx Ulcer Musculoskeletal Medical History: Reports Hx Arthritis - GENERALIZED, Denies Hx Gout Skin Medical History: Denies Hx Eczema, Denies Hx Psoriasis Psychiatric Medical History: Reports: Hx Depression Infectious Medical History: Denies: Hx Hepatitis Past Surgical History: Reports: Hx Cholecystectomy, Hx Hysterectomy, Other - Bilateral salpingectomy and oophorectomy. Paracentesis. Denies: Hx Mastectomy, Hx Open Heart Surgery, Hx Pacemaker - Immunizations Hx Diphtheria, Pertussis, Tetanus Vaccination: No Review of Systems - Review of Systems Notes: Constitutional: Negative for fever. HENT: + Swallowing difficulty Eyes: Negative for visual changes. Cardiovascular: Negative for chest pain. Respiratory +shortness of breath and no wheezing. Gastrointestinal: Negative for abdominal pain, vomiting or diarrhea. Genitourinary: Negative for dysuria. Musculoskeletal: Negative for back pain. Skin: Negative for rash. Neurological: Negative for headaches, weakness or numbness. 10 point ROS negative except as marked above and in HPI. Physical Exam - Vital signs Vitals: Temp Pulse Resp BP Pulse Ox 97 F L 92 16 117/62 96 05/26/20 14:33 05/26/20 14:33 05/26/20 14:33 05/26/20 14:33 05/26/20 14:33 - Notes Notes: PHYSICAL EXAMINATION: Physical Exam: General: Medically ill-appearing 65-year-old woman no acute distress HEENT: NC/AT, pupils equal round and reactive to light, MM moist,nares clear, oropharynx clear, airway patent Neck: supple, no adenopathy, no masses. Good range of motion Lungs: clear, no wheezing, no rales no rhonchi CVS: Regular rate and rhythm no murmur gallop or rub Abdomen: Soft, active, nontender, no masses, no hepatosplenomegaly Ext: No edema, clubbing or cyanosis. Neuro: Alert and responsive, moving all 4 extremities on command, cranial nerves intact, no focal findings Skin: Intact no open lesions, no rash Course - Re-evaluation Re-evalutation: 05/26/20 17:05 Patient has done well in the emergency department with no further difficulties after 3 hours of observation. She ambulated in the emergency department without assistance and had no associated shortness of breath on room air. I have a instructed her to follow-up with her oncologist with regards to further treatment and plans. She is also aware that she can return to the emergency department at any time if she has further difficulties. - Vital Signs Vital signs: Temp Pulse Resp BP Pulse Ox 97 F L 92 18 122/72 93 05/26/20 14:33 05/26/20 14:33 05/26/20 16:01 05/26/20 16:01 05/26/20 16:01 Discharge - Discharge Clinical Impression: Allergic reaction Qualifiers: Encounter type: initial encounter Qualified Code(s): T78.40XA - Allergy, unspecified, initial encounter Ovarian cancer Qualifiers: Laterality: unspecified laterality Qualified Code(s): C56.9 - Malignant neoplasm of unspecified ovary Condition: Good Disposition: HOME, SELF-CARE Instructions: Acute Allergic Reaction to Drugs ([facility]) Additional Instructions: You are seen in emergency department today with allergic reaction to the chemotherapy medication. The treatment you were given in the ambulance has controlled the symptoms. Please follow-up with your oncologist regarding further treatment options. If you have further difficulties or concerns you may return to the emergency department for further evaluation and treatment HOME CARE INSTRUCTIONS & INFORMATION: Thank you for choosing us for your medical needs. We hope you're satisfied with the care you received. After you leave, you must properly care for your problem and, at the same time, observe its progress. Any condition can change. Some illnesses can change rapidly over hours or days. If your condition worsens, return to the Emergency Department or see your physician promptly. ABOUT YOUR X-RAYS AND EKG'S: If you had an EKG or X-rays taken, they have been read by the Emergency Physician. The X-rays and EKG's will also be read by a Radiologist or Salt Grinder within 24 hours. If discrepancies are noted, you will be notified by telephone. Please be certain the ED has a correct telephone number & address where you can be reached. Also, realize that some fractures or abnormalities do not show up on initial X-rays. If your symptoms continue, see your physician. ABOUT YOUR LABORATORY TEST: If you had laboratory tests, the results have been reviewed by the Emergency Physician. Some test results (for example cultures) may not be available for several days. You will be contacted if any test result shows you need additional treatment. Please be certain the ED has a correct telephone number and address where you can be reached. ABOUT YOUR MEDICATIONS: You will receive instructions on how to take your medicine on the prescription label you receive. Additional information may be provided by the Pharmacy. If you have questions afterwards, call the ED for clarification or further instructions. Some prescribed medications may cause drowsiness. Do not perform tasks such as driving a car or operating machinery without consulting your Pharmacist. If you feel you need a refill of pain medication, your condition will need re-evaluation. Please do not call for a refill of any medication. ABOUT YOUR SIGNATURE: Signature of this document acknowledges to followin. Understanding that you received emergency treatment and that you may be released before al medical problems are known or treated. Please be certain the ED has a correct phone number & address where you can be reached. 2. Acknowledgement that you will arrange for follow-up care as recommended. 3. Authorization for the Emergency Physician to provide information to your follow-up Physician in order to maximize your care. AT ANY TIME, IF YOUR SYMPTOMS CHANGE SIGNIFICANTLY OR WORSEN OR YOU DEVELOP NEW SYMPTOMS, RETURN TO THE EMERGENCY DEPARTMENT IMMEDIATELY FOR RE-EVALUATION. OUR GOAL IS TO PROVIDE EXCELLENT MEDICAL CARE! WE HOPE THAT WE HAVE MET YOUR EXPECTATIONS DURING YOUR EMERGENCY DEPARTMENT VISIT AND THAT YOU FEEL YOU HAVE RECEIVED EXCELLENT CARE! Referrals: KELSEY TAVERA MD [Primary Care Provider] - Follow up as needed
[2020-05-26 17:45] VITALS: BP 116/64
== END 2020-05-26 17:46 | disposition home or self-care (01) ==
LOC: ER 13:43
DX: R13.10 Dysphagia, unspecified (principal); R06.02 Shortness of breath; T45.1X5A Adverse effect of antineoplastic and immunosuppressive drugs, initial encounter; Y92.538 Other ambulatory health services establishments as the place of occurrence of the external cause; C56.9 Malignant neoplasm of unspecified ovary; J44.9 Chronic obstructive pulmonary disease, unspecified; R00.0 Tachycardia, unspecified; I10 Essential (primary) hypertension; Z88.1 Allergy status to other antibiotic agents; Z88.7 Allergy status to serum and vaccine; Z88.6 Allergy status to analgesic agent; Z88.5 Allergy status to narcotic agent; Z88.8 Allergy status to other drugs, medicaments and biological substances
CPT/HCPCS: 99283; J1642

== ENCOUNTER → 2020-07-08 | Outpatient (CLI) | payer MEDICARE, MEDICAID ==
--- NOTE | 2020-07-08 15:49 | RADIOLOGY REPORT (SQ) ---
EXAM DESCRIPTION: CT CHEST WITH IMAGES COMPLETED DATE/TIME: 07/08/2020 10:43 am REASON FOR STUDY: C56.2 MALIGNANT NEOPLASM OF LEFT OVARY C56.2 MALIGNANT NEOPLASM OF LEFT OVARY COMPARISON: 04/01/2020 TECHNIQUE: CT scan of the chest performed using helical scanning technique with dynamic intravenous contrast injection. Images reviewed with lung, soft tissue and bone windows. Reconstructed coronal and sagittal MPR and MIP images reviewed. All images stored on PACS. All CT scanners at this facility use dose modulation, iterative reconstruction, and/or weight based d osing when appropriate to reduce radiation dose to as low as reasonably achievable (ALARA). [facility]: Dose Right [facility]: CareDose [facility]: Dose Right [facility]: Teradose 4D [facility]: [employer] CONTRAST TYPE AND DOSE: 80 mL Omnipaque 350- low osmolar. RENAL FUNCTION: Creatinine 1 RADIATION DOSE: . LIMITATIONS: None. FINDINGS: LUNGS AND PLEURA: Stable 6 mm right upper lobe nodule. There are ill-defined ground-glass opacities in the left upper lobe and right upper lobe. Ill-defined opacity in the right middle lobe . Stable 7 x 4 mm slightly spiculated nodule in the right lower lobe is seen on image 76 series 6. Left pleural effusion is larger. Small right pleural effusion. HILAR AND MEDIASTINAL STRUCTURES: No identified masses or abnormal nodes. HEART AND VASCULAR STRUCTURES: No aneurysm or dissection. No central pulmonary emboli. No pericardi al effusion. HARDWARE: Injection port on the right. UPPER ABDOMEN: See separate report of the CT of the abdomen. THYROID AND OTHER SOFT TISSUES: There is further slight enlargement of the axillary nodes previously noted bilaterally. Subpectoral nodes are larger. BONES: No significant finding. OTHER: No other significant finding. IMPRESSION: Enlarging axillary and subpectoral adenopathy. Enlarging left pleural effusion. New sm all right pleural effusion. Stable pulmonary opacities. TECHNICAL DOCUMENTATION: JOB ID: [id number] Quality ID # [id number]: Final reports with documentation of one or more dose reduction techniques (e.g., Au tomated exposure control, adjustment of the mA and/or kV according to patient size, use of iterative reconstruction technique) 2010 [employer]- All Rights Reserved Reading location - IP/workstation name: [email or web address]
--- NOTE | 2020-07-08 16:04 | RADIOLOGY REPORT (SQ) ---
EXAM DESCRIPTION: CT ABD/PELVIS WITH IV ORAL IMAGES COMPLETED DATE/TIME: 07/08/2020 10:43 am REASON FOR STUDY: C56.2 MALIGNANT NEOPLASM OF LEFT OVARY C56.2 MALIGNANT NEOPLASM OF LEFT OVARY COMPARISON: 04/01/2020 TECHNIQUE: CT scan of the abdomen and pelvis performed using helical scanning technique with dynamic intravenous contrast injection. Oral contrast. Images reviewed with lung, soft tissue, and bone win dows. Reconstructed coronal and sagittal MPR images reviewed. Delayed images for evaluation of the ur inary system also acquired. All images stored on PACS. All CT scanners at this facility use dose modulation, iterative reconstruction, and/or weight based d osing when appropriate to reduce radiation dose to as low as reasonably achievable (ALARA). [facility]: Dose Right [facility]: CareDose [facility]: Dose Right [facility]: Teradose 4D [facility]: [employer] CONTRAST TYPE AND DOSE: contrast/concentration: Isovue 350.00 mmol/ml; Total Contrast Delivered: 80. 0 ml; Total Saline Delivered: 38.0 ml RENAL FUNCTION: Creatinine 1 RADIATION DOSE: CT Rad equipment meets quality standard of care and radiation dose reduction techniq ues were employed. CTDIvol: 4.4 - 5.9 mGy. DLP: 1043 mGy-cm.. LIMITATIONS: None. FINDINGS: LOWER CHEST: See separate report of the CT of the chest. LIVER: Normal size. No masses. No dilated ducts. Small amount of fluid around the liver. SPLEEN: Normal size. No focal lesions. PANCREAS: No masses. No significant calcifications. No adjacent inflammation or peripancreatic fluid collections. Pancreatic duct not dilated. GALLBLADDER: Surgically absent. ADRENAL GLANDS: No significant masses or asymmetry. RIGHT KIDNEY AND URETER: No solid masses. No significant calcifications. No hydronephrosis or hyd roureter. LEFT KIDNEY AND URETER: No solid masses. No significant calcifications. No hydronephrosis or hydr oureter. AORTA AND VESSELS: No aneurysm. No dissection. Renal arteries, SMA, celiac without stenosis. RETROPERITONEUM: Retroperitoneal adenopathy is increased. For example, a pericaval node on the right measures 17.7 mm compared to 10.5 mm on the prior study. Adenopathy in the root of the mesentery chavez s increased. For example, a node on image 41 series 3 measures 20.8 mm in long axis compared to 17.2 mm in long axis on the prior study. BOWEL AND PERITONEAL CAVITY: No masses or inflammatory changes. No free fluid or peritoneal masses. APPENDIX: Not identified. PELVIS: Pelvic sidewall adenopathy is increased. A node on the right that measured 28.7 mm in long a xis on image 61 of the prior study measures 38.6 mm on image 60 the current study and shows central n ecrosis. ABDOMINAL WALL: Inguinal adenopathy is increased. Node on the right that measured 26.6 mm in long ax is on image 69 of the prior study measures 33 mm in long axis on the current study on image 67. Subc utaneous edema is present. BONES: No significant or acute findings. OTHER: No other significant finding. IMPRESSION: Increasing adenopathy as described above. There is increased fluid around the liver. T here is considerable subcutaneous edema. TECHNICAL DOCUMENTATION: JOB ID: [id number] Quality ID # [id number]: Final reports with documentation of one or more dose reduction techniques (e.g., Au tomated exposure control, adjustment of the mA and/or kV according to patient size, use of iterative reconstruction technique) 2010 [employer]- All Rights Reserved Reading location - IP/workstation name: [email or web address]
== END ==
LOC: RAD 09:59
PROVIDERS: ATTEND Physician Assistant Medical
DX: C56.2 Malignant neoplasm of left ovary (principal); R91.1 Solitary pulmonary nodule; J90 Pleural effusion, not elsewhere classified
CPT/HCPCS: 71260; 74177; 82565

== ENCOUNTER 2020-07-16 11:37 | Day surgery (SDC) | payer MEDICARE, MEDICAID ==
[2020-07-16 12:19] LABS: HEMATOCRIT 33.2 % (36.0-47.0); HEMOGLOBIN 11.1 g/dL (12.0-15.5); MEAN CORPUSCULAR HEMOGLOBIN 29.7 pg (27.0-33.4); MEAN CORPUSCULAR HGB CONC 33.4 g/dL (32.0-36.0); MEAN CORPUSCULAR VOLUME 89 fl (80-97); PLATELET COUNT 671 10^3/uL (150-450); RED BLOOD COUNT 3.73 10^6/uL (3.72-5.28); RED CELL DISTRIBUTION WIDTH 17.5 % (11.5-14.0); WHITE BLOOD COUNT 5.1 10^3/uL (4.0-10.5)
[2020-07-16 12:29] LABS: INTERNATIONAL RATION (INR) 0.97; PROTHROMBIN TIME 13.1 SEC (11.4-15.4)
[2020-07-16 12:30] LABS: PARTIAL THROMBOPLASTIN TIME 37.7 SEC (23.5-35.8)
[2020-07-16 12:36] LABS: BLOOD UREA NITROGEN 21 mg/dL (7-20)
--- NOTE | 2020-07-16 15:06 | RADIOLOGY REPORT (SQ) ---
EXAM DESCRIPTION: CHEST SINGLE VIEW IMAGES COMPLETED DATE/TIME: 07/16/2020 2:45 pm REASON FOR STUDY: post thora COMPARISON: 04/28/2020 EXAM PARAMETERS: NUMBER OF VIEWS: One view. TECHNIQUE: Single frontal radiographic view of the chest acquired. RADIATION DOSE: NA LIMITATIONS: None. FINDINGS: LUNGS AND PLEURA: There is small residual left pleural effusion. There is no pneumothorax . MEDIASTINUM AND HILAR STRUCTURES: No masses. Contour normal. HEART AND VASCULAR STRUCTURES: Heart normal in size. Normal vasculature. BONES: No acute findings. HARDWARE: Injection port on the right. OTHER: No other significant finding. IMPRESSION: Small residual left pleural effusion. No pneumothorax. TECHNICAL DOCUMENTATION: JOB ID: [id number] 2010 [employer]- All Rights Reserved Reading location - IP/workstation name: [email or web address]
--- NOTE | 2020-07-16 15:22 | RADIOLOGY REPORT (SQ) ---
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 LIMITATIONS: None. PROCEDURE: The procedure, risks, benefits, and alternatives were discussed with the patient and the patient's family who then gave written consent. The left chest wall was then marked utilizing sonogr aphic guidance and a time-out was performed to document correct marking verification. The area around the selected percutaneous access site was then prepped and draped with 2% chlorhexidi ne utilizing standard sterile technique. After that, the selected access site was infiltrated with 5 ml of 1% lidocaine. A 6 Fr [id number] catheter was then introduced into the pleural space and the fluid was aspirated. After the fluid was aspirated, the catheter was removed and the entry site w as covered with a sterile bandage. No immediate complications were noted. Images acquired during the procedure were stored on PACS. The patient tolerated the procedure with local anesthesia. At the end of the procedure the patient's condition was unchanged from the preprocedural baseline. Documentation of [id number] time the proceduralist spent monitoring the patient: 15 minutes. FINDINGS: ENTRY SITE: Posterior left chest. FLUID VOLUME: 400 mL. FLUID ANALYSIS: Serosanguinous OTHER: Therapeutic. IMPRESSION: Successful ultrasound-guided left-sided thoracentesis. COMMENT: Patient medication list reviewed: Yes- Quality ID# [id number]:Eligible professional attests to doc umenting in the medical record they obtained, updated, or reviewed the patient's current medications. TECHNICAL DOCUMENTATION: JOB ID: [id number] 2010 [employer]- All Rights Reserved Reading location - IP/workstation name: [email or web address]
--- NOTE | 2020-07-16 16:46 | RADIOLOGY REPORT (SQ) ---
EXAM DESCRIPTION: CHEST SINGLE VIEW IMAGES COMPLETED DATE/TIME: 07/16/2020 4:36 pm REASON FOR STUDY: 2 hour post thora COMPARISON: Earlier the same day. NUMBER OF VIEWS: One view. TECHNIQUE: Single frontal radiographic image of the chest acquired. LIMITATIONS: None. FINDINGS: LUNGS AND PLEURA: Stable appearance. No pneumothorax. MEDIASTINUM AND HEART: Stable heart size and mediastinal structures. SUPPORT DEVICES: Appropriate location without change. BONY STRUCTURES: No acute findings. HARDWARE: None. OTHER: No other significant finding. IMPRESSION: No pneumothorax. Reading location - IP/workstation name: [email or web address]
[2020-07-16 17:03] VITALS: BP 122/72
== END 2020-07-16 17:00 | disposition home or self-care (01) ==
LOC: RAD 11:37
PROVIDERS: ATTEND Internal Medicine
DX: C56.2 Malignant neoplasm of left ovary (principal); J91.8 Pleural effusion in other conditions classified elsewhere; Z79.899 Other long term (current) drug therapy; Z88.8 Allergy status to other drugs, medicaments and biological substances; Z88.5 Allergy status to narcotic agent; Z79.01 Long term (current) use of anticoagulants
CPT/HCPCS: 32555; 36415; 71045; 82565; 84520; 85027; 85610; 85730

== ENCOUNTER → 2020-09-19 | Outpatient (CLI) | payer MEDICARE, MEDICAID ==
--- NOTE | 2020-09-19 08:25 | WOMENS IMAGING REPORT ---
EXAM DESCRIPTION: U/S ABDOMEN TOTAL IMAGES COMPLETED DATE/TIME: 09/19/2020 8:03 am REASON FOR STUDY: C56.2 C56.2 MALIGNANT NEOPLASM OF LEFT OVARY COMPARISON: None. TECHNIQUE: Dynamic and static grayscale images acquired of the abdomen and recorded on PACS. Additio nal selected color Doppler and spectral images recorded. Note: Study does not meet criteria for complete doppler/duplex scan LIMITATIONS: None. FINDINGS: PANCREAS: Majority the pancreas is obscured by overlying bowel gas. LIVER: No masses. Echotexture normal. LIVER VASCULATURE: Normal directional flow of the main portal vein and hepatic veins. GALLBLADDER: Surgically absent. ULTRASOUND-DETECTED LYNNE'S SIGN: Negative. INTRAHEPATIC DUCTS AND COMMON DUCT: CBD and intrahepatic ducts normal caliber. No filling defects. INFERIOR VENA CAVA: Patent. Limited visualization. AORTA: Limited visualization. No aneurysm. RIGHT KIDNEY: Normal size. Normal echogenicity. No solid or suspicious masses. No hydronephros is. No calcifications. LEFT KIDNEY: Normal size. Normal echogenicity. No solid or suspicious masses. No hydronephrosi s. No calcifications. SPLEEN: Normal size. No solid masses. PERITONEAL AND PLEURAL SPACES: Mild ascites. There is a left pleural effusion. OTHER: No other significant finding. IMPRESSION: Minimal ascites. Small left effusion. TECHNICAL DOCUMENTATION: JOB ID: [id number] 2010 [employer]- All Rights Reserved Reading location - IP/workstation name: [email or web address]
== END ==
LOC: WI 08:04
PROVIDERS: ATTEND Physician Assistant Medical
DX: C56.2 Malignant neoplasm of left ovary (principal)
CPT/HCPCS: 76700

== ENCOUNTER 2020-10-05 07:14 | Emergency (ER) | payer MEDICARE, MEDICAID ==
[2020-10-05 08:02] LABS: ABSOLUTE BASOPHILS # (AUTO) 0.1 10^3/uL (0.0-0.2); ABSOLUTE EOSINOPHILS # (AUTO) 0.1 10^3/uL (0.0-0.6); ABSOLUTE LYMPHOCYTES (AUTO) 1.4 10^3/uL (0.5-4.7); ABSOLUTE MONOCYTES (AUTO) 0.7 10^3/uL (0.1-1.4); ABSOLUTE NEUT (AUTO) 2.9 10^3/uL (1.7-8.2); EOSINOPHILS % (AUTO) 2.6 % (0-6); HEMATOCRIT 38.5 % (36.0-47.0); HEMOGLOBIN 12.4 g/dL (12.0-15.5); LYMPHOCYTES % (AUTO) 27.7 % (13-45); MEAN CORPUSCULAR HEMOGLOBIN 30.2 pg (27.0-33.4); MEAN CORPUSCULAR HGB CONC 32.2 g/dL (32.0-36.0); MEAN CORPUSCULAR VOLUME 94 fl (80-97); MONOCYTES % (AUTO) 13.1 % (3-13); PLATELET COUNT 413 10^3/uL (150-450); RED BLOOD COUNT 4.11 10^6/uL (3.72-5.28); RED CELL DISTRIBUTION WIDTH 19.7 % (11.5-14.0); SEGMENTED NEUTROPHILS % (AUTO) 55.6 % (42-78); TOTAL CELLS COUNTED % (AUTO) 100 %; WHITE BLOOD COUNT 5.2 10^3/uL (4.0-10.5)
[2020-10-05 08:14] LABS: ALBUMIN 3.6 g/dL (3.5-5.0); ALKALINE PHOSPHATASE 113 U/L (38-126); ANION GAP 10 (5-19); ASPARTATE AMINO TRANSFERASE 29 U/L (14-36); BILIRUBIN,DIRECT 0.2 mg/dL (0.0-0.4); BILIRUBIN,TOTAL 0.5 mg/dL (0.2-1.3); BLOOD UREA NITROGEN 8 mg/dL (7-20); CALCIUM 8.6 mg/dL (8.4-10.2); CARBON DIOXIDE 26 mmol/L (22-30); CHLORIDE 94 mmol/L (98-107); CREATINE KINASE 24 U/L (30-135); GLUCOSE 102 mg/dL (75-110); POTASSIUM 3.4 mmol/L (3.6-5.0); TOTAL PROTEIN 7.4 g/dL (6.3-8.2)
--- NOTE | 2020-10-05 08:37 | EKG REPORT ---
SEVERITY:- ABNORMAL ECG - ECTOPIC ATRIAL RHYTHM BORDERLINE R WAVE PROGRESSION, ANTERIOR LEADS : Confirmed by: Ray Ann MD 05-Oct-2020 08:35:48
--- NOTE | 2020-10-05 08:51 | RADIOLOGY REPORT (SQ) ---
EXAM DESCRIPTION: CHEST SINGLE VIEW IMAGES COMPLETED DATE/TIME: 10/05/2020 7:42 am REASON FOR STUDY: SVT COMPARISON: AP chest 07/16/2020 CT chest 07/08/2020 EXAM PARAMETERS: NUMBER OF VIEWS: One view. TECHNIQUE: Single frontal radiographic view of the chest acquired. RADIATION DOSE: NA LIMITATIONS: None. FINDINGS: LUNGS AND PLEURA: Since the prior chest film 07/16/2020, there is an increase in the small t o moderate left pleural effusion. Left basilar atelectasis is present. No left pneumothorax. Right hemithorax unremarkable MEDIASTINUM AND HILAR STRUCTURES: No masses. Contour normal. HEART AND VASCULAR STRUCTURES: Heart normal in size. Normal vasculature. BONES: No acute findings. HARDWARE: Unchanged right-sided permanent central line with the tip in the superior vena cava. Clips right upper quadrant post cholecystectomy. OTHER: No other significant finding. IMPRESSION: Since the prior chest film 07/16/2020, there is an increase in the small to moderate left pleural effusion TECHNICAL DOCUMENTATION: JOB ID: [id number] 2010 [employer]- All Rights Reserved Reading location - IP/workstation name: [id number]
[2020-10-05] MEDS ORDERED: POTASSIUM CHLORIDE 20 MEQ PACKET PO ONE (09:07)
--- NOTE | 2020-10-05 09:27 | ER Document Report ---
Entered by BIBI JAEGER SCRIBE 10/05/20726 Acting as scribe for:ESTEBAN MADRID MD ED General - General Stated Complaint: HEART RATE ISSUES Time Seen by Provider: 10/05/20 07:20 Primary Care Provider: KELSEY NAM MD [ACTIVE STAFF] - Follow up in 3-5 days HARSHAD QUEZADA PA-C [Primary Care Provider] - Follow up as needed Mode of Arrival: Medic Information source: Patient Notes: This 65 year old female patient with stage IV ovarian cancer presents to the emergency department today with complaints of a heart racing sensation prior to arrival. EMS reports that when they arrived on scene the patient was in SVT but mentioned she really needed to have a bowel movement. She went into the bathroom, had an episode of diarrhea, and self-converted. She reports her last SVT episode being about 3 years ago. Patient mentions that she has had abdominal bloating for the last x2-[address] Nam is currently working this up. TRAVEL OUTSIDE OF THE [place] IN LAST 30 DAYS: No - Related Data Allergies/Adverse Reactions: cephalexin monohydrate [From Keflex] Allergy (Mild, Verified 10/05/20 07:48) rash Tetanus Vaccines and Toxoid [Tetanus] Allergy (Mild, Verified 10/05/20 07:48) ARM SWELLING duloxetine HCl [From Cymbalta] Allergy (Verified 10/05/20 07:48) Vomiting oxycodone HCl [From Percocet] Allergy (Verified 10/05/20 07:48) Vomiting tramadol HCl [From Ultracet] Allergy (Verified 10/05/20 07:48) Vomiting azithromycin [From Zithromax] Adverse Reaction (Intermediate, Verified 10/05/20 07:48) N/V Past Medical History - General Information source: Patient, [facility] Records - Social History Smoking Status: Current Every Day Smoker Cigarette use (# per day): Yes - 1 ppd Frequency of alcohol use: None Drug Abuse: None Lives with: Family Family History: Reviewed & Not Pertinent, CAD, Hypertension, Malignancy, Other - Past Medical History Cardiac Medical History: Reports: Hx Hypertension Pulmonary Medical History: Reports: Hx Bronchitis, Hx COPD Malignancy Medical History: Reports: Hx Ovarian Cancer - stage IV per patient, unsure of metastasis GI Medical History: Reports: Hx Ulcerative Colitis Musculoskeletal Medical History: Reports Hx Arthritis - GENERALIZED Psychiatric Medical History: Reports: Hx Depression Past Surgical History: Reports: Hx Cholecystectomy, Hx Gynecologic Surgery - Bilateral salpingectomy and oophorectomy., Hx Hysterectomy, Other - Paracentesis - Immunizations Hx Diphtheria, Pertussis, Tetanus Vaccination: No Review of Systems - Review of Systems Constitutional: No symptoms reported EENT: No symptoms reported Cardiovascular: See HPI, Palpitations, Heart racing Respiratory: No symptoms reported Gastrointestinal: See HPI, Abdomen distended, Diarrhea Genitourinary: No symptoms reported Female Genitourinary: No symptoms reported Musculoskeletal: No symptoms reported Skin: No symptoms reported Hematologic/Lymphatic: No symptoms reported Neurological/Psychological: No symptoms reported -: Yes All other systems reviewed and negative Physical Exam - Vital signs Vitals: Temp Resp Pulse Ox 97.8 F 18 92 10/05/20 07:30 10/05/20 07:30 10/05/20 07:30 - Notes Notes: Physical Exam: General: Alert, appears cachectic, chronically ill appearing. HEENT: Normocephalic. Atraumatic. PERRL. Extraocular movements intact. Oropharynx clear. Neck: Supple. Non-tender. Respiratory: No respiratory distress. Decreased breath sounds in the left base. Cardiovascular: Regular rate and rhythm. Abdominal: Abdomen is firm and distended. Normal Bowel Sounds. Back: No gross abnormalities. Extremities: Moves all four extremities. Upper extremities: Normal inspection. Normal ROM. Lower extremities: Normal inspection. No edema. Normal ROM. Neurological: Normal cognition. AAOx4. Normal speech. Psychological: Normal affect. Normal Mood. Skin: Warm. Dry. Normal color. Course - Vital Signs Vital signs: Temp Pulse Resp BP Pulse Ox 97.8 F 21 H 131/81 H 96 10/05/20 07:30 10/05/20 08:01 10/05/20 08:01 10/05/20 08:01 - Laboratory Result Diagrams: 10/05/20 06:51 10/05/20 06:51 Laboratory results interpreted by me: 10/05/20 10/05/20 06:51 06:51 RDW 19.7 H Tucker % (Auto) 13.1 H Sodium 129.8 L Potassium 3.4 L Chloride 94 L Magnesium 1.5 L Creatine Kinase 24 L - Diagnostic Test Radiology reviewed: Image reviewed, Reports reviewed - Chest x-ray shows worsening left pleural effusion compared to 07/16/2020 - EKG Interpretation by Me EKG shows normal: Sinus rhythm, [place], Intervals, ST-T Waves. abnormal: QRS Complexes - Borderline R wave progression in anterior leads Rate: Normal - 94 Rhythm: NSR When compared to previous EKG there are: No significant change Discharge - Discharge Clinical Impression: Paroxysmal SVT (supraventricular tachycardia), Pleural effusion on left, Hyp okalemia Carcinoma of ovary, stage 4 Qualifiers: Laterality: unspecified laterality Qualified Code(s): C56.9 - Malignant ne oplasm of unspecified ovary Condition: Stable Disposition: HOME, SELF-CARE Instructions: Paroxysmal Supraventricular Tachycardia ([facility]) Additional Instructions: The effusion in your left lung has gotten worse compared to 07/16/2020 chest x- ray. Your potassium level was low today. You should increase potassium in your diet. An easy way to do that is eating bananas. Follow-up with Dr. Nam this week, call Tuesday for an appointment. RETURN TO THE EMERGENCY ROOM IF ANY NEW OR WORSENING SYMPTOMS. Referrals: HARSHAD QUEZADA PA-C [Primary Care Provider] - Follow up as needed KELSEY NAM MD [ACTIVE STAFF] - Follow up in 3-5 days I personally performed the services described in the documentation, reviewed and edited the documentation which was dictated to the scribe in my presence, and it accurately records my words and actions.
[2020-10-05 10:14] VITALS: BP 118/76
== END 2020-10-05 09:30 | disposition home or self-care (01) ==
LOC: ER 07:14
DX: I47.1 Supraventricular tachycardia (principal); C56.9 Malignant neoplasm of unspecified ovary; J90 Pleural effusion, not elsewhere classified; E87.6 Hypokalemia; R19.7 Diarrhea, unspecified; R00.2 Palpitations; R14.0 Abdominal distension (gaseous); F17.210 Nicotine dependence, cigarettes, uncomplicated; I10 Essential (primary) hypertension; J44.9 Chronic obstructive pulmonary disease, unspecified; Z88.1 Allergy status to other antibiotic agents; Z88.7 Allergy status to serum and vaccine; Z88.8 Allergy status to other drugs, medicaments and biological substances; Z88.6 Allergy status to analgesic agent; Z88.5 Allergy status to narcotic agent
CPT/HCPCS: 93005; 99285; 36415; 82550; 83735; 85025; 80053; 84484; 71045; 93010; J3490

== ENCOUNTER → 2020-12-01 | Outpatient (CLI) | payer MEDICARE, MEDICAID ==
--- NOTE | 2020-12-01 11:46 | RADIOLOGY REPORT (SQ) ---
EXAM DESCRIPTION: CHEST 2 VIEWS IMAGES COMPLETED DATE/TIME: 12/01/2020 10:01 am REASON FOR STUDY: PLEURAL EFFUSION, NOT ELSEWHERE CLASSIFIED COMPARISON: AP view of the chest from 10/05/2020 EXAM PARAMETERS: NUMBER OF VIEWS: Two views. TECHNIQUE: PA and lateral views of the chest were obtained. RADIATION DOSE: NA LIMITATIONS: None. FINDINGS: LUNGS AND PLEURA: There is a dense opacity in the inferior aspect of the left hemithorax t hat obscures the contour of the left hemidiaphragm and blunts the left lateral costophrenic sulcus. MEDIASTINUM AND HILAR STRUCTURES: No mediastinal or hilar contour abnormality. HEART AND VASCULAR STRUCTURES: The cardiac silhouette and pulmonary vasculature are within normal [place] its. BONES: Chronic fractures of the right 5th, 6th, 7th 8th and 9th ribs. HARDWARE: The tip of the right IJ approach single-lumen port projects within the SVC. OTHER: Cholecystectomy clips. IMPRESSION: Pleural and parenchymal opacities in the inferior aspect of the left hemithorax that lik yousuf represent a combination of pleural fluid and atelectasis. TECHNICAL DOCUMENTATION: JOB ID: [id number] 2010 [employer]- All Rights Reserved Reading location - IP/workstation name: [email or web address]
== END ==
LOC: RAD 09:50
PROVIDERS: ATTEND Internal Medicine
DX: J90 Pleural effusion, not elsewhere classified (principal)
CPT/HCPCS: 71046